=== PATIENT | male | born 1945 ===

== ENCOUNTER 2025-05-02 12:57 | Outpatient (AMB) | payer MEDICARE, SELFPAY ==
[2025-05-02 13:06] VITALS: BMI 26.3
--- NOTE | 2025-05-02 13:06 | A.OFFVIS_ITS ---
VS Expanded 05/02/25 13:06 05/03/25 12:57 Height 5 ft 8 in 5 ft 8 in Weight 173 lb 4.533 oz 173 lb BMI 26.3 26.3 Intake Visit Reasons: Pre-Diabetes Nutrition Presentation Details: Pt presents for MNT for DM, CKD stage 4 A1c at 6.5% on 03/2025 Pt reports he likes to eat sweets/pastries at different times and is working on reducing these sugars smokes: since 18 yo , less 1/2 ppd etoh: no physical activity: sedentary - d/t hip pain Pt reports BG at 109 this AM, daughter helps with meal preparation food frequency fruits: 0-3/wk Beverages: soda root beer or orange B: donut, coffee or sugary cereal with milk , coffee L: cookies dinner: rice/chicken, salad or potato/chicken/carrots snack cookies/ice cream dr robertson PCP and [facility]o BPU-Iwxzgwh-Vv.Jeor Equation Height: 5 ft 8 in Weight: 173 lb Resting Metabolic Rate: 1489.59 Calculated Activity Level: Sedentary Calories Needed to Maintain Weight: 1787.51 Diagnosis Nutrition problem #1: food nutri know defi As related to (etiology) #1: diagnosis As evidenced by (sign/symptom) #1: knowledge deficit of diet Assessment & Plan Assessment & Plan (1) Prediabetes: Comment: A1c at 6.5% on 03/2025, CKD stage 4 Code(s): R73.03 - Prediabetes Category: Medical Plan: Wt: 79 Kg ( 05/15 ) Est kcal needs as per MSJ: 1800 (40% carb, 30% protein/fat) Est fluid needs as per 25-30 ml/d: 2400 Est prot per day as per 1 g/kg bw: 80 Recommend fiber intake : 8-10 g per day and gradually increase to 25-28 g per day for women and 35-38 g for men or as tolerated Recommend sodium intake per day : less than 2000 mg Educated patient on: ( R = reviewed V = verbalizes understanding N/R = needs review N/A = not applicable * Food sources of carbohydrate, adequate serving sizes and its role in various health conditions: R * Differences between complex carbohydrates a simple carbohydrates, role of fib er in diet: R * Lean protein sources of foods: R * Differences between types of fats and role in diet (mono on saturated fat fatty acids, saturated fatty acids, trans fats): R V N/R * Food sources of sodium in salt and healthy modifications for heart health in kidney health: R * Vitamins and minerals: R V N/R * Healthy plate method concept: R * Physical activity: Benefits a precaution: R V N/R * Hypoglycemia protocol (rule of 15): R V N/R * Dietary prevention of Hyperglycemia: R Patient Instructions: Choose low sugar beverages - see list of options (milk, juice diluted with water, seltzer water Have a fruit with peanut butter as your breakfast replacing donuts /cookies see low sugar /low sodium options for cereals - you can also mix current cereal with lower salt/sugar options Coding Level of Care Code Nutr Indiv Intake (81652) Diagnoses Prediabetes R73.03 Time Spent (min) 30
--- OUTSIDE RECORDS SUMMARY | 2025-05-02 13:43 | XMS_ITS ---
Author Name [facility] Organization Unknown Care Team Organization Name Specialty Phone Email Start Date End Da [facility] 07/29/2022 05/09/2024
--- OUTSIDE RECORDS SUMMARY | 2025-05-02 13:43 | XMS_ITS | Encounter Summary ---
Author Organization [facility] Address [address] [place] [address] Phone Care Team Providers Care Wedding Florist Name Role Phone Unavailable Primary Care Provider Unavailabl e Encounter Details Date Type Department Care Team (Late st Contact Info) Description 12/17/2022 Telephone [facility] [address] [place] [address] Ghada Ellis Social History Tobacco Use Types Packs/Day Years Used Date Smoking Tobacco: Never Assessed Sex and Gender Information Value Date Recorded Sex Assigned at Not on file Legal Sex Male 5:01 PM EST Gender Identity Not on file Sexual Orientation Not on file documented as of this encounter Miscellaneous Notes * Telephone Encounter - Ghada Ellis - 12/17/2022 9:53 AM EDT Clifton from [facility] called regarding a scheduled CT scan tomorrow 12/18/22. Radiology is looking for an order consenting for PT to have contrast dye. Clifton: [phone] Clifton called again in regards to the IV with contrast, she is looking for an order for this to be done. documented in this encounter Plan of Treatment Not on file documented as of this encounter Visit Diagnoses Not on filedocumented in this encounter
--- OUTSIDE RECORDS SUMMARY | 2025-05-02 13:43 | XMS_ITS | Clinical Summary ---
Author Organization [address] Address [address] [place] [phone] Phone Care Team Providers Care Cuff Presser Name Role Phone Jagruti Cardenas MD Primary Care Provider [phone] Allergies No known active allergies Medications fluticasone propionate (FLONASE) 50 mcg/actuation nasal spray Administer 2 sprays into affected nostril(s) 1 (one) time each day. 12/28/19 24 Active calcitrioL (ROCALTROL) 0.25 mcg capsule Take 1 capsule (0.25 mcg total) by mouth 1 (one) time each day. 07/01/20 22 Active cholecalcifero l (VITAMIN D-3) 50 mcg (2,000 unit) capsule Take 1 capsule (2,000 Units total) by mouth 1 (one) time each day. 03/11/20 18 Active inhaler, assist devices (BREATHERITE MDI SPACER MISC) SPACER/AERO-H OLDING CHAMBERS (BREATHERITE CECILIA SPACER ADULT) MISC 1 Device by Does not apply route as needed. use w flovent 11/26/19 11 Active aspirin 81 mg EC tablet Take 1 tablet (81 mg total) by mouth 1 (one) time each day. Active albuterol HFA (PROAIR HFA ; PROVENTIL HFA ; VENTOLIN HFA) 90 mcg/actuation inhaler INHALE 2 PUFFS INTO THE LUNGS EVERY 4 HOURS NEEDED FOR COUGH OR WHEEZING. 8.5 each 10/05/19 25 Active nebivoloL (Bystolic) 10 mg tablet Take 1 tablet (10 mg total) by mouth 1 (one) time each day. 90 each 3 11/16/19 25 026 Active cloNIDine (CATAPRES-TTS- 2) 0.2 mg/[address] 1 patch on the skin 1 (one) time per week. 30 patch 12/14/19 25 Active atorvastatin (LIPITOR) 20 mg tablet TAKE 1 TABLET BY MOUTH EVERY DAY 90 tablet 1 12/29/19 25 Active famotidine (PEPCID) 20 mg tablet TAKE 1 TABLET BY MOUTH TWICE A DAY 180 tablet 1 01/28/20 25 Active gabapentin (NEURONTIN) 100 mg capsule Take 2 capsules (200 mg total) by mouth 2 (two) times a day. 360 capsule 1 04/19/20 25 Active amLODIPine (NORVASC) 5 mg tablet Take 1 tablet (5 mg total) by mouth 1 (one) time each day. 90 each 1 04/17/20 25 026 Active gabapentin (NEURONTIN) 100 mg capsule Take 2 capsules (200 mg total) by mouth 2 (two) times a day. 180 capsule 1 04/17/20 25 Active methocarbamoL (ROBAXIN) 750 mg tabletIndicati ons:Muscle spasm TAKE 1 TABLET BY MOUTH AT BEDTIME NEEDED (MUSCLE SPASM, WILL CAUSE SEDATION). 30 tablet 05/02/20 25 Active amLODIPine (NORVASC) 5 mg tablet Take 1 tablet (5 mg total) by mouth 1 (one) time each day. 10/14/19 24 025 Discontinued(Re order) gabapentin (NEURONTIN) 100 mg capsule TAKE 2 CAPSULES BY MOUTH 2 TIMES A DAY. 180 capsule 01/24/20 25 025 Discontinued(Re order) methocarbamoL (ROBAXIN) 750 mg tabletIndicati ons:Muscle spasm TAKE 1 TABLET BY MOUTH AT BEDTIME NEEDED (MUSCLE SPASM, WILL CAUSE SEDATION). 30 tablet 03/01/20 25 025 Discontinued methocarbamoL (ROBAXIN) 750 mg tabletIndicati ons:Muscle spasm TAKE 1 TABLET BY MOUTH AT BEDTIME NEEDED (MUSCLE SPASM, WILL CAUSE SEDATION). 30 tablet 04/03/20 25 025 Discontinued Active Problems Problem Noted Date Diagnosed Date CKD (chronic kidney disease) stage 4, GFR 15-29 ml/min ([facility] V24, [facility] V28) 11/16/2024 Gastroesophageal reflux dise ase with esophagitis without hemorrhage 08/28/2023 Assessment & Plan (08/15/2024 4:21 PM EST): He will continue famotidine for his GERD. Leg hematoma, left, sequela 03/23/2023 Overview (07/04/2024): after right fem to popliteal bypass, by Dr. Martinez PVD (peripheral vascular dis ease) with claudication ([facility] V24) 01/24/2022 Overview (07/04/2024): Dr. Moore- failed grafting, anticoagulation dc'd Pure hypercholesterolemia 09/29/2012 Assessment & Plan (08/15/2024 4:21 PM EST): His LDL is less than 60. Orders: Complete blood count; Future Thyroid stimulating hormone; Future Hemoglobin A1c; Future 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 Overview (07/04/2024): Per pul note 2010, in the 70' Allergic rhinitis 11/25/2010 Asthmatic bronchitis , chronic ([facility] V24, [facility] V28) 11/25/2010 Disorder of kidney and ureter 04/07/2007 Overview (07/04/2024): CREATININE USUALLY AROUND 2.0, follows with Dr. Benji MAY update Chronic hepatitis ([facility] V24, [facility] V28) 11/2004 Overview (07/04/2024): hepatitis C by history. But serology test (-) 2010 Depression 06/23/2005 Essential hypertension, benign 04/25/2005 Assessment & Plan (08/15/2024 4:21 PM EST): He will continue on amlodipine for management of hypertension. Will follow renal function. Patient has upcoming follow-up with nephrology. Hyperpotassemia 12/09/2004 Resolved Problems Problem Noted Date Diagnosed Date Resolved Date Controlled type 2 diabetes leland ho with chronic kidney disease, without long-term current use of insulin ([facility] V24, [facility] V28) 08/25/2017 08/15/2024 CKD (chronic kidney disease) stage 3, GFR 30-59 ml/min ([facility] V24, [facility] V28) 09/13/2015 11/16/2024 Overview (07/04/2024): Follows with Dr. Leblanc Assessment & Plan (08/15/2024 4:21 PM EST): We discussed the CKD stage III. Discussed the importance of avoidance of NSAIDs, contrast if possible, and making sure he is staying well-hydrated. We also discussed the importance of blood pressure and blood sugar control. Orders: Complete blood count; Future Thyroid stimulating hormone; Future Hemoglobin A1c; Future Encounters Date Type Department Care Team Description 04/17/2025 9:45 AM EDT Office Visit Adult Medicine [address] [phone] Jagruti Cardenas MD Pre-diabetes (Primary Dx); CKD (chronic kidney disease) stage 4, GFR 15-29 ml/min ([facility] V24, [facility] V28); Essential hypertension, benign; Postprocedural male urethral stricture; History of prostate cancer 03/20/2025 1:15 PM EDT Office Visit Orthopedic Surgery - [address] [phone] Neville Jacome DPM PVD (peripheral vascular disease) ([facility] V24) (Primary Dx); Metatarsalgia of left foot; Hammertoes of both feet; Dermatophytosis, nail from Last 3 Months Immunizations Name Administration Dates Next Due Influenza Quadravalent, MDCK , 0.5ml, preservative free (Flucelvax) 6mo and older 10/01/2018 Influenza Quadravalent, MDCK , 0.5ml, with preservative (Flucelvax) 6mo and older 08/21/2017 Influenza trivalent, 0.5mL ( Fluad) 65yo and older 06/26/2023,06/03/2022,07/02/2021,06/21 Influenza trivalent, 0.5mL, preservative free (Fluarix; FluLaval; Fluzone) ages 6mo and older (Afluria) 3 years and older 05/30/2016,06/12/2015,07/05/2014,07/11,06/06/2012,07/08/2011,07/28/2005 Influenza, Unspecified 07/05/2019 Pfizer SARS-CoV-2 COVID-19, mRNA, LNP-S, preservative free 07/22/2021 Pneumococcal conjugate 13 va lent (Prevnar 13, PCV13) 2mo and older 01/07/2017 Pneumococcal conjugate 20 va lent (Prevnar 20, PCV 20) 2mo and older 06/26/2023 Pneumococcal polysaccharide 23 valent (Pneumovax 23) 2yo and older 10/01/2018,01/10/2011 Td Tetanus diptheria (Tdvax) 7yo and older 08/27/2023 Tdap Tetanus diptheria acell ular pertussis (Boostrix; Adacel) 7yo and older 08/03/2012 Zoster Live 03/30/2012 Surgical History Surgery Date Site/Laterality Comments PROSTATECTOMY 2001 PROCEDURE: PROSTATECTOMY; COMMENT: radical prostatectomy for Jesus's 6, Stage PT 2A NOMO KNEE ARTHROSCOPY W/ DEBRIDEMENT 12/03/04 PROCEDURE: NV ARTHRS KNEE DEBRIDEMENT/SHAVING ARTCLR CRTLG; COMMENT: L knee OTHER SURGICAL HISTORY PROCEDURE: NV CYSTOURETHROSCOPY INSERTION PERM URETHRAL STENT OTHER SURGICAL HISTORY PROCEDURE: HISTORY OTHER; COMMENT: left knee pinning Medical History Medical History Date Comments Essential hypertension, benign 04/25/05 D X:Essential hypertension, benign Hyperpotassemia 12/09/04 DX:Hyperpotassem ia Essential hypertension, malignant 12/06/04 DX:Essential hypertension, malignant Primary localized osteoarthr osis, lower leg 11/20/04 DX:Primary localized osteoar throsis, lower leg Lipoma of unspecified site 11/17/02 DX:Li kurtis of unspecified site Neoplasm of uncertain behavi or of other specified sites 01/11/03 DX:Neoplasm of uncertain beh avior of other specified sites Hypertrophy (benign) of prostate 06/04/01 DX:Hypertrophy (benign) of prostate Chronic hepatitis, unspecifi ed ([facility] V24, [facility] V28) DX:Chronic hepatitis, unspe cified (HCC); COMMENT: hepatitis C Personal history of alcoholi sm ([facility] V24, [facility] V28) DX:Personal history of alco holism (HCC) Personal history of malignan t neoplasm of prostate DX:Personal history of malig nant neoplasm of prostate Cellulitis and abscess of or al soft tissues DX:Cellulitis and abscess of oral soft tissues; COMMENT: septic arthritis L knee Peripheral vascular disease, unspecified ([facility] V24) 04/07/2007 DX:Peripheral vascular disea se, unspecified ([facility]) Unspecified disorder of kidn ey and ureter 04/07/2007 DX:Unspecified disorder of k idney and ureter; COMMENT: CREATININE USUALLY AROUND 2.0 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 DX:Positive PPD Pure hypercholesterolemia 09/29/2012 DX:Pur e hypercholesterolemia Hyperglycemia 06/05/2014 DX:Hyperglycemia CKD (chronic kidney disease) stage 3, GFR 30-59 ml/min ([facility] V24, [facility] V28) 09/13/2015 DX:CKD (chronic kidney disea se) stage 3, GFR 30-59 ml/min ([facility]); COMMENT: Follows with Dr. Leblanc Controlled type 2 diabetes m vic with chronic kidney disease, without long-term current use of insulin ([facility] V24, [facility] V28) 08/25/2017 Family History Medical History Relation Name Comments Other: shot Brother No Known Problems Father No Known Problems Mother No Known Problems Sister 1 Other: weak heart Sister 2 Relation Name Status Comments Brother Father Mother Sister 1 Sister 2 Sister 3 Alive Social History Tobacco Use Types Packs/Day Years Used Date Smoking Tobacco: Every Day Cigarettes 0.5 61.6 Started: 09/21/1961 Smokeless Tobacco: Never Tobacco Cessation:Ready to Q uit: Not Asked; Counseling Given: Not Answered Alcohol Use Standard Drinks/Week Comments No 0 (1 standard drink = 0.6 oz pur e alcohol) Housing Instability Answer Date Recorde d Are you worried that in the next 2 months you may not have stable housing? No 08/12/2024 Food Access & Nutrition Answer Date Rec orded Do you have access to a vari ety of food including fruits and vegetables? Yes 08/12/2024 Access to Healthcare Answer Date Record ed Within the last 3 months, ho w many times did you visit the emergency department for your medical care? 0 08/12/2024 Health Literacy Answer Date Recorded How often do you need to hav e someone help you when you read instructions, pamphlets, or other written material from your doctor or pharmacy? Never 08/12/2024 Caregiver: How often do you need to have someone help you when you read instructions, pamphlets, or other written material from your doctor or pharmacy? Not on file 08/12/2024 Financial Risk Answer Date Recorded How hard is it for you to pa y for the very basics like food, housing, medical care, and air conditioning / heating? Not very hard 08/12/2024 Transportation Answer Date Recorded Has the lack of transportati on kept you from meetings, work, or from getting things needed for daily living? No Has the lack of transportati on kept you from medical appointments or from getting medications? No 08/12/2024 Social Isolation Answer Date Recorded How often do you feel lonely or isolated from th ose around you? Rarely 08/12/2024 Food Risk Answer Date Recorded Within the past 12 months we worried whether our food would run out before we got money to buy more. Never true 08/12/2024 Within the past 12 months th e food we bought just didn't last and we didn't have money to get more. Never true 08/12/2024 Dependent Care Answer Date Recorded Do you need help finding or paying for care for your loved ones. For example, exceptional children's teacher or elderly care for an older adult? No 08/12/2024 Education Answer Date Recorded Do you think completing more education or training, like finishing a GED, going to college, or learning a trade, would be helpful for you? N/A 08/12/2024 Employment and Income Answer Date Recor ded During the last four weeks, have you been actively looking for work? No 08/12/2024 Living Situation Answer Date Recorded What is your living situation? 1 10/12/2023 Sex and Gender Information Value Date Recorded Sex Assigned at Male 07/26/2024 4:37 PM EST Legal Sex Male 9:29 AM EST Gender Identity Male 07/26/2024 4:37 PM EST Sexual Orientation Straight 07/26/2024 4: 37 PM EST Obstetrics History Last Filed Vital Signs Vital Sign Reading Time Taken Comments Blood Pressure 120/52 04/17/2025 9:54 AM EDT Pulse 64 04/17/2025 9:54 AM EDT Temperature 36.6 C (97.8 F) 04/17/2025 9:54 AM EDT Respiratory Rate 14 04/17/2025 9:54 AM EDT Oxygen Saturation 98% 04/17/2025 9:54 AM EDT Inhaled Oxygen Concentration - - Weight 79 kg (174 lb 3.2 oz) 04/17/2025 9:54 AM EDT Height 172.7 cm (5' 8 ) 04/17/2025 9:54 AM EDT Body Mass Index 26.49 04/17/2025 9:54 AM EDT Plan of Treatment Upcoming Encounters Date Type Department Care Team (Late st Contact Info) Description 05/25/2025 11:00 AM EDT Office Visit Orthopedic Surgery - [place] [phone] [phone] Neville Jacome, LEVI [address] [address] 06/14/2025 1:00 PM EDT Office Visit Nephrology [address] [phone] Dave [facility]anc [facility] [address] [facility] [address] [place] [phone] 08/10/2025 1:15 PM EST Office Visit Adult Medicine [place] [address] [phone] Jagruti Cardenas MD [address] [place] [phone] Health Maintenance Due Date Last Done Comments Diabetes: Annual Retina Eye Exam 1955 Hepatitis A Vaccines (1 of 2 - Risk 2-dose series) 1966 Hepatitis B Vaccines (1 of 3 - Risk 3-dose series) 2007 Zoster Vaccines (1 of 2) 05/25/2012 03/30/2012 RSV Immunization Adult Patients (1 - 1-dose 75+ series) 2022 COVID-19 Vaccine (5 - season) 2024 06/26/2023, 07/22/2021, 01/13/2021, Additional history exists Medicare Annual Wellness Visit 08/27/2024 08/27/2023 Diabetes: Annual Foot Exam 08/28/2024 08/28/2023 Influenza Vaccine (#1) 2025 , 06/26/2023, 06/03/2022, Additional history exists Lung Cancer Screening (Low Dose CT) 07/18/2025 07/18/2024, 07/15/2023, 07/14/2022, Additional history exists Diabetes: Annual Urine Albumin-Creatinine Ratio (uACR) 08/09/2025 08/09/2024, 11/06/2022 Social Influencers of Health Screening 08/12/2025 08/12/2024 Falls Risk Assessment 08/15/2025 08/15/2024, 024 Diabetes: Blood Sugar Control Test (HGBA1C) 10/11/2025 04/10/2025, 04/04/2025, 12/08/2024, Additional history exists Diabetes: Annual GFR (Glomerular Filtration Rate) 04/10/2026 04/10/2025, 04/04/2025, 04/04/2025, Additional history exists Hypertension/CHF/CAD Annual BMP Blood Test 04/10/2026 04/10/2025, 04/04/2025, 04/04/2025, Additional history exists Cholesterol Screening (Lipid Panel) 08/08/2029 08/08/2024, 08/24/2023 DTaP,Tdap,and Td Vaccines (3 - Td or Tdap) 08/27/2033 08/27/2023, 08/03/2012 Hepatitis C Screening Completed 09/16/2011 Pneumococcal Vaccine: 50+ Years Completed 06/26/2023, 10/01/2018, 01/07/2017, Additional history exists Depression Screening Completed 12/06/2024, 08/27/20 23 HIB Vaccines Aged Out No longer eligi ble based on patient's age to complete this topic HPV Vaccines Aged Out No longer eligi ble based on patient's age to complete this topic IPV Vaccines Aged Out No longer eligi ble based on patient's age to complete this topic MMR Vaccines Aged Out No longer eligi ble based on patient's age to complete this topic Meningococcal ACWY Vaccine Aged Out N o longer eligible based on patient's age to complete this topic Meningococcal B Vaccine Aged Out No l onger eligible based on patient's age to complete this topic RSV Immunization Patients Under 20 months Aged Out No longer eligible based on patient's age to complete this topic Varicella Vaccines Aged Out No longer eligible based on patient's age to complete this topic Procedures Procedure Name Priority Date/Time Associated Diagnosis Comments COMPLETE BLOOD COUNT Routine 04/10/2025 11:21 AM EDT CKD (chronic kidney disease) stage 4, GFR 15-29 ml/min ([facility] V24, [facility] V28) Chronic hepatitis ([facility] V24, [facility] V28) Gastroesophageal reflux disease with esophagitis without hemorrhage Essential hypertension, benign Prediabetes COMPREHENSIVE METABOLIC PANEL Routine 04/10/2025 11:21 AM EDT CKD (chronic kidney disease) stage 4, GFR 15-29 ml/min ([facility] V24, [facility] V28) Chronic hepatitis ([facility] V24, [facility] V28) Gastroesophageal reflux disease with esophagitis without hemorrhage Essential hypertension, benign Prediabetes HEMOGLOBIN A1C Routine 04/10/2025 11:21 AM EDT CKD (chronic kidney disease) stage 4, GFR 15-29 ml/min ([facility] V24, [facility] V28) Chronic hepatitis ([facility] V24, [facility] V28) Gastroesophageal reflux disease with esophagitis without hemorrhage Essential hypertension, benign Prediabetes MICROALBUMIN CREATININE URINE RATIO Routine 08/09/2024 10:53 AM EST PVD (peripheral vascular disease) with claudication ([facility] V24) Allergic rhinitis Essential hypertension, benign Asthmatic bronchitis , chronic ([facility] V24, [facility] V28) Chronic hepatitis ([facility] V24, [facility] V28) Gastroesophageal reflux disease with esophagitis without hemorrhage CKD (chronic kidney disease) stage 3, GFR 30-59 ml/min ([facility] V24, [facility] V28) Controlled type 2 diabetes mellitus with chronic kidney disease, without long-term current use of insulin ([facility] V24, [facility] V28) Disorder of kidney and ureter Leg hematoma, left, sequela Pure hypercholesterolemia Hyperpotassemia Positive PPD Depression LIPID PANEL WITH REFLEX TO DIRECT LDL Routine 08/08/2024 1:19 PM EST PVD (peripheral vascular disease) with claudication ([facility] V24) Allergic rhinitis Essential hypertension, benign Asthmatic bronchitis , chronic ([facility] V24, [facility] V28) Chronic hepatitis ([facility] V24, [facility] V28) Gastroesophageal reflux disease with esophagitis without hemorrhage CKD (chronic kidney disease) stage 3, GFR 30-59 ml/min ([facility] V24, [facility] V28) Controlled type 2 diabetes mellitus with chronic kidney disease, without long-term current use of insulin ([facility] V24, [facility] V28) Disorder of kidney and ureter Leg hematoma, left, sequela Pure hypercholesterolemia Hyperpotassemia Positive PPD Depression CT LUNG SCREENING LOW DOSE Routine 07/18/2024 9:12 AM EDT Personal history of nicotine dependence FALLS RISK ASSESSMENT Routine 05/12/2024 DIABETES FOOT EXAM Routine 08/28/2023 DEPRESSION SCREENING Routine 08/27/2023 HEPATITIS C SCREENING Routine 09/16/2011 from Last 3 Months or Most Recently Relevant to Health Maintenance Results * (ABNORMAL) Complete blood count (04/10/2025 11:21 AM EDT) [facility] WBC 6.3 4.8 - 10.8 K/[facility] LAB HEMETOLOGY METHOD 04/10/2025 4:07 PM EDT [facility] RBC 4.70 4.50 - 5.50 M/mcL LAB HEMETOLOGY METHOD 04/10/2025 4:07 PM [facility] Hemoglobin 13.6 13.5 - 17.5 g/dL LAB HEMETOLOGY METHOD 04/10/2025 4:07 PM [facility] Hematocrit 42.5 42.0 - 54.0 % LAB HEMETOLOGY METHOD 04/10/2025 4:07 PM [facility] MCV 91.4 79.0 - 98.0 FL LAB HEMETOLOGY METHOD 04/10/2025 4:07 PM [facility] MCH 29.2 27.0 - 32.0 pcg LAB HEMETOLOGY METHOD 04/10/2025 4:07 PM [facility] MCHC 32.0 32.0 - 37.0 g/dL LAB HEMETOLOGY METHOD 04/10/2025 4:07 PM [facility] RDW 14.0 11.0 - 15.0 % LAB HEMETOLOGY METHOD 04/10/2025 4:07 PM [facility] Platelets 263 130 - 400 K/mcL LAB HEMETOLOGY METHOD 04/10/2025 4:07 PM [facility] MPV 12.0(H) 7.0 - 11.0 FL LAB HEMETOLOGY METHOD 04/10/2025 4:07 PM [facility] NRBC 0.0 <1.0 % LAB HEMETOLOGY METHOD 04/10/2025 4:07 PM [facility] NRBC Absolute 0.00 <0.10 K/mcL LAB HEMETOLOGY METHOD 04/10/2025 4:07 PM [facility] Blood Venous blood specimen / Unknown Venipuncture / Unknown 04/10/2025 11:21 AM EDT 04/10/2025 11:21 AM EDT Mike GARCES LAB BLOOD ORDERABLES Fin al Result Performing Organization Address City/[facility]/ZIP Co de Phone Number [facility] [address] [place] [address], [place] [phone] * (ABNORMAL) Hemoglobin A1c (04/10/2025 11:21 AM EDT) Hemoglobin A1C 6.6(H) <6.5 % LAB CHEMISTRY METHOD 04/10/2025 9:06 PM EDT [facility] Mean Bld Glu Estim. 143 mg/dL LAB CHEMISTRY METHOD 04/10/2025 9:06 PM EDT [facility] Blood Venous blood specimen / Unknown Venipuncture / Unknown 04/10/2025 11:21 AM EDT 04/10/2025 11:21 AM EDT Mike GARCES LAB BLOOD ORDERABLES Fin al Result Performing Organization Address [facility]/ZIP Co de Phone Number [facility] [address] [place] [address], [place] [phone] * (ABNORMAL) Comprehensive metabolic panel (04/10/2025 11:21 AM EDT) Pathologist [facility] Sodium 140 133 - 145 mmol/L LAB CHEMISTRY METHOD 04/10/2025 7:18 PM EDT [facility] Potassium 4.9 3.5 - 5.5 mmol/L LAB CHEMISTRY METHOD 04/10/2025 7:18 PM EDT [facility] Chloride 108 96 - 110 mmol/L LAB CHEMISTRY METHOD 04/10/2025 7:18 PM EDT [facility] CO2 28 21 - 32 mmol/L LAB CHEMISTRY METHOD 04/10/2025 7:18 PM T [facility] Anion Gap 4 3 - 11 LAB CHEMISTRY METHOD 04/10/2025 7:18 PM EDT [facility] Glucose 98 70 - 100 mg/dL LAB CHEMISTRY METHOD 04/10/2025 7:18 PM [facility] BUN 25 5 - 25 mg/dL LAB CHEMISTRY METHOD 04/10/2025 7:18 PM [facility] Creatinine 2.53(H) 0.70 - 1.30 mg/dL LAB CHEMISTRY METHOD 04/10/2025 7:18 PM [facility] eGFR 25(L) >=60 mL/min/1. 73m2 LAB CHEMISTRY METHOD 04/10/2025 7:18 PM [facility] Comment:Calculation based on the Chronic Kidney Disease Epidemiology Collaboration (CKD-EPI) equation refit without adjustment for race. BUN/Creatinine Ratio 9.9 LAB CHEMISTRY METHOD 04/10/2025 7:18 PM [facility] Calcium 9.5 8.5 - 10.5 mg/dL LAB CHEMISTRY METHOD 04/10/2025 7:18 PM [facility] AST (SGOT) 10 10 - 42 unit/L LAB CHEMISTRY METHOD 04/10/2025 7:18 PM [facility] ALT (SGPT) 17 10 - 60 unit/L LAB CHEMISTRY METHOD 04/10/2025 7:18 PM [facility] Alkaline Phosphatase 155(H) 42 - 121 unit/L LAB CHEMISTRY METHOD 04/10/2025 7:18 PM [facility] Total Protein 7.1 6.0 - 8.0 g/dL LAB CHEMISTRY METHOD 04/10/2025 7:18 PM [facility] Albumin 3.6 3.2 - 5.0 g/dL LAB CHEMISTRY METHOD 04/10/2025 7:18 PM [facility] Total Bilirubin 0.4 0.0 - 1.4 mg/dL LAB CHEMISTRY METHOD 04/10/2025 7:18 PM [facility] Blood Venous blood specimen / Unknown Venipuncture / Unknown 04/10/2025 11:21 AM EDT 04/10/2025 11:21 AM EDT Mike GARCES LAB BLOOD ORDERABLES Fin al Result Performing Organization Address City/[facility]/ZIP Co de Phone Number [facility] [address] [place] [address], [place] [phone] * (ABNORMAL) Microalbumin creatinine urine ratio (08/09/2024 10:53 AM EST) Creatinine, Urine 84.0 mg/dL LAB CHEMISTRY METHOD 08/09/2024 2:43 PM EST [facility] Microalb, Ur 737.0(H) 0.0 - 29.0 mg/L LAB CHEMISTRY METHOD 08/09/2024 2:43 PM EST [facility] Microalb/Crea t Ratio 877(H) <30 mg/g creat LAB CHEMISTRY METHOD 08/09/2024 2:43 PM EST [facility] Urine Urine specimen obtained by clean catch procedure / Unknown Non-blood Collection / Unknown 08/09/2024 10:53 AM EST 08/09/2024 10:53 AM EST Jagruti Cardenas MD LAB URINE ORDERABLES Final Resul t Performing Organization Address City/[facility]/ZIP Co de Phone Number [facility] [address] [place] [address], [place] [phone] * Lipid panel with reflex to direct LDL (08/08/2024 1:19 PM EST) Cholesterol 112 0 - 200 mg/dL LAB CHEMISTRY METHOD 08/08/2024 5:34 PM EST [facility] Triglycerides 84 0 - 150 mg/dL LAB CHEMISTRY METHOD 08/08/2024 5:34 PM EST [facility] HDL 46 >=40 mg/dL LAB CHEMISTRY METHOD 08/08/2024 5:34 PM EST [facility] LDL Calculated 49 0 - 100 mg/dL LAB CHEMISTRY METHOD 08/08/2024 5:34 PM EST [facility] VLDL Cholesterol Baltazar 16.8 mg/dL LAB CHEMISTRY METHOD 08/08/2024 5:34 PM EST [facility] Non HDL Chol. (LDL+VLDL) 66 <145 mg/dL LAB CHEMISTRY METHOD 08/08/2024 5:34 PM EST [facility] Chol/HDL Ratio 2.4 0.0 - 4.4 LAB CHEMISTRY METHOD 08/08/2024 5:34 PM EST [facility] Blood Venous blood specimen / Unknown Venipuncture / Unknown 08/08/2024 1:19 PM EST 08/08/2024 1:19 PM EST us Jagruti Cardenas MD LAB BLOOD ORDERABLES Final Resul t [facility] [address] [place] [address], * CT LUNG SCREENING LOW DOSE (07/18/2024 9:12 AM EDT) Anatomical Region Laterality Modality Computed Tomogra phy 07/16/2024 8:43 AM EDT Narrative 07/18/2024 9:[address] [facility] Diagnostic Imaging Department [address] [place] [address] Patient: JOSHUA RUBIO JR./Age/Sex: 1945 - 78 - M Unit#: [id number] Location/Status: SPDICATLS/REG CLI Mnemonic[facility] Ordering Physician: COURTNEY DAVIES MD CT Lung Screening Low Dose - 07/16/2448 Report Status:Signed PROCEDURE: Chest CT INDICATION: Current smoker, 45 pack-year smoking history, tobacco abuse, lung cancer screening TECHNIQUE: Chest CT without contrast. Multi planar reformats were created and interpreted. The examination was performed utilizing dose reduction techniques. Total DLP 111 COMPARISON: 07/15/2023 FINDINGS: LUNGS/PLEURA: Round filling defect within the left mainstem bronchus is decreased compared to prior and likely secretions. Emphysema. 3 mm right upper lobe nodule is stable compared to prior. Scattered smaller nodules throughout the lungs are stable compared to prior No new or suspicious pulmonary nodules. No pleural effusion or pneumothorax. MEDIASTINUM: Thyroid gland is unremarkable. No mediastinal or hilar lymphadenopathy. Cardiac chambers are normal in size. No pericardial effusion. Esophagus is normal. CHEST WALL: No axillary lymphadenopathy or superficial hematoma. UPPER ABDOMEN:Hepatic steatosis. BONES: No acute fracture. Scattered degenerative changes seen throughout the bones. IMPRESSION: No new or suspicious pulmonary nodules. Lung RADS 2-benign. Recommend continued screening with low-dose chest CT in 12 months. Dictating Physician: LAURO VIRGEN MD Electronically Signed by: LAURO VIRGEN MD Dic Date/Time: 07/18/24901 Sign date/Time: 07/18/24911 Procedure Note Lauro Virgen MD - 07/23/2024 [facility] Diagnostic Imaging Department [address] [place] [address] Patient: JOSHUA RUBIO JR., D.O.B./Age/Sex: 1945 - 78 - M Unit#: [id number] Location/Status: SPDICATLS/REG CLI Mnemonic/Ordering Site: [facility] Ordering Physician: COURTNEY DAVIES MD CT Lung Screening Low Dose - 07/16/24 - 0848 Report Status:Signed PROCEDURE: Chest CT INDICATION: Current smoker, 45 pack-year smoking history, tobacco abuse,lung cancer screening TECHNIQUE: Chest CT without contrast. Multi planar reformats were createdand interpreted. The examination was performed utilizing dose reductiontechniques. Total DLP 111 COMPARISON: 07/15/2023 FINDINGS: LUNGS/PLEURA: Round filling defect within the left mainstem bronchus is decreased compared to prior and likely secretions. Emphysema. 3 mm rightupper lobe nodule is stable compared to prior. Scattered smaller nodulesthroughout the lungs are stable compared to prior No new or suspicious pulmonarynodules. No pleural effusion or pneumothorax. MEDIASTINUM: Thyroid gland is unremarkable. No mediastinal or hilar lymphadenopathy. Cardiac chambers are normal in size. No pericardialeffusion. Esophagus is normal. CHEST WALL: No axillary lymphadenopathy or superficial hematoma. UPPER ABDOMEN:Hepatic steatosis. BONES: No acute fracture. Scattered degenerative changes seen throughoutthe bones. IMPRESSION: No new or suspicious pulmonary nodules. Lung RADS 2-benign. Recommend continued screening with low-dose chest CT in 12 months. Dictating Physician: LAURO VIRGEN MD Electronically Signed by: LAURO VIRGEN MD Dic Date/Time: 07/18/24901 Sign date/Time: 07/18/24911 Courtney Davies MD [facility] [place]ED[place] Final Result * Falls Risk Assessment (05/12/2024) Pathologist [facility] Falls Risk Assessment Abstracted Rory Provider HEALTH MAINTENANCE Final Result * Diabetes Foot Exam (08/28/2023) Pathologist [facility] Diabetes: Annual Foot Exam Abstracted Historical Provider HEALTH MAINTENANCE Final Result * Depression Screening (08/27/2023) Pathologist [facility] Depression Screening Abstracted Historical Provider HEALTH MAINTENANCE Final Result * Hepatitis C Screening (09/16/2011) Pathologist [facility] Hepatitis C Screening Abstracted Historical Provider HEALTH MAINTENANCE Final Result from Last 3 Months or Most Recently Relevant to Health Maintenance Insurance MEDICARE [facility] Care Teams Cuff Presser Relationship Specialty Start Date End Date Jagruti Cardenas MD [address] [place] [id number] PCP - General 05/19/1994
[2025-05-03 12:57] VITALS: BMI 26.3
== END 2025-05-02 13:40 | disposition home or self-care (01) ==
PROVIDERS: Visit Provider Dietitian, Registered
DX: R73.03 Prediabetes (principal)

== ENCOUNTER → 2025-05-02 12:57 | Outpatient (BNVA) | payer MEDICARE, SELFPAY | PROVIDERS: Visit Provider Dietitian, Registered | DX: R73.03 Prediabetes (principal); N18.4 Chronic kidney disease, stage 4 (severe); Z71.3 Dietary counseling and surveillance | CPT/HCPCS: 97802 ==

== ENCOUNTER 2025-06-21 13:20 | Outpatient (AMB) | payer MEDICARE, SELFPAY ==
--- OUTSIDE RECORDS SUMMARY | 2025-06-14 00:54 | XMS_ITS | Encounter Summary ---
Author Organization [facility] Address [address] [place] [address] Care Team Providers Care Production Support Specialist Name Role Phone Jagruti Cardenas MD Primary Care Provider [phone] Reason for Referral * Home Health (Routine) - Closed Specialty Diagnoses / Procedures Referred By Eliud t Referred To Contact Home Health Services Diagnoses Lightheadedness Dizziness Jaspreet Ledesma MD [address] [place] [id number] Phone: tel: fax: [facility] [place] [address] [facility] [address] [place] [address] Phone: tel: fax: Referral ID Status Reason Start Date Expiration Date V isits Requested Visits Authorized [id number] Closed Consult and Treat 06/16/2025 06/16/2026 1 1 Reason for Visit * Reason Comments Dizziness Pt coming from home brought in by EMS for c/o a fall today trying to get out of bed d/t dizziness no headstrike or LOC this also happened yesterday too where pt was walking felt dizzy and fell. Pt endorses back pain d/t to fall. Pt left sided arm weakness for EMS. * Auth/Cert (Routine) Specialty Diagnoses / Procedures Referred By Contac t Referred To Contact Diagnoses Lightheadedness Urinary tract infection NSTEMI (non-ST elevated myocardial infarction) (CMS/HCC V24, CMS/[facility] V28) Urinary tract infection without hematuria, site unspecified Procedures . Rich Dia MD [address] [place] [address] Phone: tel: fax: [facility] [address] [place] [address] Phone: tel: Referral ID Status Reason Start Date Expiration Date Visits Re quested Visits Authorized [id number] 1 1 Encounter Details Date Type Department Care Team (Latest Contact Info) Description 06/14/2025 12:54 AM EDT - 06/16/2025 1:48 PM EDT Hospital Encounter [facility] [address] [place] [phone] Roberto Peguero MD [address] [place] [address] [phone] Rich Dia MD [address] [place] [id number] [phone] Jaspreet Ledesma MD [address] [place] [address] [phone] David Mcdowell MD [address] [place] [phone] Urinary tract infection without hematuria, site unspecified (Primary Dx); Lightheadedness; NSTEMI (non-ST elevated myocardial infarction) ([facility] V24, [facility] V28); Dizziness; Essential hypertension, benign; CKD (chronic kidney disease) stage 4, GFR 15-29 ml/min ([facility] V24, [facility] V28); Fever, unspecified fever cause Discharge Disposition: Home-Health Care Svc Social History Tobacco Use Types Packs/Day Years Used Date Smoking Tobacco: Every Day Cigarettes 0.5 61.7 Started: 09/21/1961 Smokeless Tobacco: Never Alcohol Use Standard Drinks/Week Comments No 0 [...] care for your loved ones. For example, children counselor or elderly care for an older adult? [...] Date Recorded What is your living situation? Unrecognized valu e 08/12/2024 Interpersonal Safety Answer Date Record ed Physical Abuse Unrecognized value 06/14/2025 Verbal Abuse Unrecognized value 06/14/2025 Sex and Gender Information Value Date Recorded Sex Assigned at Male 07/26/2024 4:37 PM EST Legal Sex Male 9:29 AM EST Gender Identity Male 07/26/2024 4:37 PM EST Sexual Orientation Straight 07/26/2024 4: 37 PM EST documented as of this encounter Last Filed Vital Signs Vital Sign Reading Time Taken Comments Blood Pressure 162/64 06/16/2025 11:36 AM EDT Pulse 83 06/16/2025 11:36 AM EDT Temperature 36.9 C (98.4 F) 06/16/2025 11:36 AM EDT Respiratory Rate 16 06/16/2025 11:3 6 AM EDT Oxygen Saturation 100% 06/16/2025 11: 36 AM EDT Inhaled Oxygen Concentration - - Weight 78.9 kg (173 lb 15.1 oz) 025 10:55 AM EDT Height 172.7 cm (5' 7.99 ) 06/14/2025 1 0:55 AM EDT Body Mass Index 26.45 06/14/2025 10:55 AM EDT documented in this encounter Functional Status * Calculated C-SSRS Risk Score (Lifetime/Recent) Answer Date of Assessment Author No Risk Indicated 06/14/2025 6:28 AM EDT Ibeth Dutton RN * [place] Suicide Severity Rating Scale (Screener/Recent Self-Report) Question Answer Date of Assessment Author 1. Wish to be (Past 1 Month) No 025 6:28 AM EDT Ibeth Dutton RN 2. Non-Specific Active Suici wolfgang Thoughts (Past 1 Month) No 06/14/2025 6:28 AM EDT Aaron Dutton RN 6. Suicidal Behavior (Lifetime) No 6:28 AM EDT Ibeth Dutton RN documented as of this encounter Discharge Summaries * Jaspreet Ledesma MD - 06/16/2025 9:28 AM EDT Images from the original note were not included. DISCHARGE SUMMARY Patient Information Alexandro Rubio Jr. : 1945 [79 y.o.] Admitting Provider Rich Dia MD Discharge Provider Jaspreet Ledesma MD, Jaspreet Ledesma MD Primary Care Physician Jagruti Cardenas MD Admission Date 06/14/2025 Discharge Date 06/16/2025 Discharge disposition- Home with home health Summary of Hospital Problems Primary Discharge Diagnosis: E. coli urosepsis Hospital Course Summary Admission HPI from H&P per admitting physician/CROW- This is a 79-year-old male with a past medical history significant for hypertension, hyperlipidemia, chronic kidney disease stage IV follows with Dr. Leblanc, peripheral vascular disease, chronic hepatitis and a complicated urological history. He has a history of prostate cancer status post prostatect amisha, urethral stricture and a history of AUS placed which became infected and was removed 2022. He presents to the emergency room with complaints of dizziness and weakness. He states that this has been ongoing for over a month but has gotten progressively worse. He tells me that he slid out of bed yesterday and was unable to get up despite his daughter trying to help him. The dizziness seems worse when he stands but not always. He has no vision changes no difficulty chewing swallowing or speaking. He expressly denied chest pain/pressure is no shortness of breath but he does sometimes have a cough with white phlegm. No abdominal pain no flank pain. No blood in the urine or stool. He reports a decrease appetite stating that the food just does not taste good. While in the emergency room he did develop a fever. Workup: Chest x-ray which showed no active pulmonary process EKG #1: Sinus rhythm with sinus arrhythmia rate of 86 bpm with PVCs. No acute ischemic changes EKG #2 sinus rhythm rate of 66 bpm no acute ischemic changes EKG #3 normal sinus rhythm 62 bpm no acute ischemic changes EKGs are my read official cardiology read is pending. Echocardiogram is pending Abdomen and pelvis CT pending Brain CT showed no acute intracranial findings including mass shift midline shift hydrocephalus or acute hemorrhage likely chronic small vessel ischemic changes. Brain MRI is pending CBC showed a white count of 8.3 hemoglobin 11.1 hematocrit 33.9 platelets 175 neutrophils of 6.5 Sed rate 42 Procalcitonin of 10.6 Chemistries random glucose 145 BUN 45 creatinine of 3.35 albumin 2.9 AST is 66 ALT 40 alkaline phosphatase of 117 total protein 6.3 lactate 1.3 UA positive for protein 300 moderate blood nitrate negative WBCs of 50 squamous cell epithelials 75bacteria negative Urine culture pending Blood culture pending Respiratory viral panel negative BNP of 659 High sensitive troponin 111, repeat 125 Vital signs Tmax was 38.9 pulse last recorded at 63 respiratory rate 14 blood pressure 121/55 oxygen saturation 98% on room air Orthostatic bp 133/56, 130/60, 121/55 He was given a liter of normal saline and 1 dose of ceftriaxone. Bharti Garcia NP Brief Hospital course 79-year-old male with history of CKD and extensive urological history was initially admitted with sepsis in setting of UTI, he is troponins flat trended and he was found to have MARCIN. While receiving fluids, he went into flash pulmonary edema which quickly resolved and he was brought down to room air. Blood cultures growing gram-negative bacilli, sensitivity pending. He remained on 2 g of ceftriaxone and discharged on renally adjusted cefpodoxime. He was also started on steroids for ongoing wheezing during his acute flash pulmonary edema episode, will complete a total of 5 days of prednisone. Over the next couple of days, his creatinine improved. CT was done without contrast with his MARCIN which was suggestive of possible bilateral pyelonephritis/cystitis but no obstruction Physical Exam at time of Discharge Temp (24hrs), Av.6 ??C (97.8 ??F), Min:36.2 ??C (97.2 ??F), Max:36.9 ??C (98.4 ??F) Body mass index is 26.45 kg/m??. No results found for: PTWT , PTHT Physical Exam General-patient appears comfortable, no acute distress HEENT-NCAT Eyes-anicteric Heart-Normal Rate and Rhythm Respiratory-CTAB Abdomen-Soft, nontender, nondistended Extremity-no significant lower extremity edema Neurology-awake alert oriented to time, place,and person Psych- Normal Mood and affect Skin-warm and dry Follow-Up Instructions and Recommendations -Continue steroids and antibiotics as prescribed. Discharge Medications Your medication list START taking these medications Instructions Last Dose Given Next Dose Due cefpodoxime 200 mg tablet Commonly known as: VANTIN Take 1 tablet (200 mg total) by mouth 1 (one) time each day for 8 days. predniSONE 20 mg tablet Commonly known as: DELTASONE Start taking on: June 17, 2025 Take 2 tablets (40 mg total) by mouth 1 (one) time each day for 3 doses. CONTINUE taking these medications Instructions Last Dose Given Next Dose Due albuterol HFA 90 mcg/actuation inhaler Commonly known as: PROAIR HFA ; PROVENTIL HFA ; VENTOLIN HFA INHALE 2 PUFFS INTO THE LUNGS EVERY 4 HOURS NEEDED FOR COUGH OR WHEEZING. amLODIPine 5 mg tablet Commonly known as: NORVASC Take 1.5 tablets (7.5 mg total) by mouth 1 (one) time each day. aspirin 81 mg EC tablet Take 1 tablet (81 mg total) by mouth 1 (one) time each day. atorvastatin 20 mg tablet Commonly known as: LIPITOR TAKE 1 TABLET BY MOUTH EVERY DAY BREATHERITE MDI SPACER MISC SPACER/AERO-HOLDING CHAMBERS (BREATHERITE CECILIA SPACER ADULT) MISC 1 Device by Does not apply route as needed. use w flovent calcitrioL 0.25 mcg capsule Commonly known as: ROCALTROL Take 1 capsule (0.25 mcg total) by mouth 1 (one) time each day. cloNIDine 0.2 mg/24 hr Commonly known as: [id number] Place 1 patch on the skin 1 (one) time per week. famotidine 20 mg tablet Commonly known as: PEPCID TAKE 1 TABLET BY MOUTH TWICE A DAY gabapentin 100 mg capsule Commonly known as: NEURONTIN Take 2 capsules (200 mg total) by mouth 2 (two) times a day. gabapentin 100 mg capsule Commonly known as: NEURONTIN Take 2 capsules (200 mg total) by mouth 2 (two) times a day. methocarbamoL 750 mg tablet Commonly known as: ROBAXIN TAKE 1 TABLET BY MOUTH AT BEDTIME NEEDED (MUSCLE SPASM, WILL CAUSE SEDATION). nebivoloL 10 mg tablet Commonly known as: Bystolic Take 1 tablet (10 mg total) by mouth 1 (one) time each day. ASK your doctor about these medications Instructions Last Dose Given Next Dose Due cholecalciferol 50 mcg (2,000 unit) capsule Commonly known as: VITAMIN D-3 Take 1 capsule (2,000 Units total) by mouth 1 (one) time each day. fluticasone propionate 50 mcg/actuation nasal spray Commonly known as: FLONASE Administer 2 sprays into affected nostril(s) 1 (one) time each day. Where to Get Your Medications These medications were sent to [id number] - [place], [place] - [address] AT [facility] [address] [facility] [address] amLODIPine 5 mg tablet cefpodoxime 200 mg tablet predniSONE 20 mg tablet Lab Results Component Value Date GLUCOSE 170 (H) 06/16/2025 CALCIUM 8.8 06/16/2025 NA 139 06/16/2025 K 3.9 06/16/2025 CO2 24 06/16/2025 CL 107 06/16/2025 BUN 63 (H) 06/16/2025 CREATININE 2.57 (H) 06/16/2025 Lab Results Component Value Date WBC 6.8 06/15/2025 WBC 6.8 06/15/2025 HGB 10.7 (L) 06/15/2025 HGB 10.7 (L) 06/15/2025 HCT 32.5 (L) 06/15/2025 HCT 32.5 (L) 06/15/2025 MCV 89.0 06/15/2025 MCV 89.0 06/15/2025 PLT 163 06/15/2025 PLT 163 06/15/2025 US Retroperitoneal Complete Result Date: 06/15/2025 INDICATION: Renal failure, acute FINDINGS: Renal ultrasound obtained. No prior studies available for comparison. Right kidney: Normal in size, shape and echogenicity. No nephrolithiasis or hydronephrosis. Left kidney: Normal in size, shape and echogenicity. No nephrolithiasis or hydronephrosis. Bladder: Not visualized ureteral jets. Normal renal ultrasound. -------- FINAL REPORT -------- Dictated By: Yonis Burris Dictated Date: 06/15/2025 09:21 ET Assigned Physician: Yonis Burris Reviewed and Electronically Signed By: Yonis Burris Signed Date: 06/15/2025 09:23 ET Workstation ID: [id number] Transcribed By: Self Edit Transcribed Date: 06/15/2025 09:21 ET Vascular US duplex carotid bilateral Result Date: 06/15/2025 INDICATION: Stroke, follow-up FINDINGS: Duplex and color images are obtained of the extracranial carotid arterial systems bilaterally. No prior studies are available for comparison. Mild atherosclerotic plaque noted along the carotid bulb bilaterally. Normal velocities and waveforms noted bilaterally. Mildly elevated right greater than left external carotid artery velocities. There are normal enddiastolic velocities bilaterally with antegrade flow in both vertebral arteries. No evidence of hemodynamically significant stenosis. -------- FINAL REPORT -------- Dictated By: Yonis Burris Dictated Date: 06/15/2025 09:19 ET Assigned Physician: Yonis Burris Reviewed and Electronically Signed By: Yonis Burris Signed Date: 06/15/2025 09:21 ET Workstation ID: [id number] Transcribed By: Self Edit Transcribed Date: 06/15/2025 09:19 ET MR Brain wo Contrast Result Date: 06/14/2025 INDICATION: Stroke, follow up MR Brain without gadolinium Comparison: CT - CT HEAD WO CONTRAST - 06/14/25 01:52 EDT Findings: Microhemorrhage/mineralization along the left dorsal aspect of the erica/superior cerebellum Scattered T2/FLAIR hyperintensities throughout the subcortical and periventricularwhite matter, likely in keeping with chronic small vessel ischemic disease. Parenchymal volume losswith compensatory prominence of the ventricles and CSF spaces. No acute infarcts, midline shift or hydrocephalus. Vascular flow voids are intact. Orbital contents are unremarkable. The sinuses and mastoid air cells are clear. No focal bone lesion. Chronic changes without acute infarcts. This document has been electronically signed by: Jayme Cowart MD on 06/14/2025 18:22:10 CT Chest/Abdomen/Pelvis wo Contrast Result Date: 06/14/2025 CT CHEST, ABDOMEN AND PELVIS WITHOUT CONTRAST INDICATION: Respiratory failure TECHNIQUE: Chest, abdomen and pelvis CT without contrast. Multiplanar reformats were created and interpreted. The examination was performed utilizing dose reduction techniques. Total DLP: 978 mGy/cm COMPARISON: No priors available. FINDINGS: CT CHEST: LUNGS/PLEURA: Central airways are patent. Lungs are clear. Severe emphysematous changes. Presumed atelectasis at the right greater than left lung bases. No pleural effusion or pneumothorax. MEDIASTINUM: Thyroid gland is unremarkable. No mediastinal or hilar lymphadenopathy. Cardiac chambers are normal in size. No pericardial effusion. Esophagus is normal. CHEST WALL:No axillary lymphadenopathy or mass. Gynecomastia. CT ABDOMEN AND PELVIS: HEPATOBILIARY: No focal liver lesions. No cholelithiasis or biliary duct dilatation. SPLEEN: no focal lesion PANCREAS: No focal mass or ductal dilatation. ADRENALS: 1.5 cm right adrenal nodule. KIDNEYS/URETERS: Upper dense upper pole left renal cyst. Bilateral perinephric stranding nonspecific. Pyelonephritis not excluded PELVIC ORGANS/BLADDER: Circumferential thickening of the bladder, correlate with urinalysis. Prostatectomy. Penile prosthesis. PERITONEUM / RETROPERITONEUM: Trace free fluid in the pelvis. VESSELS: Scattered atherosclerotic calcifications throughout the aorta and its major branches. No aneurysm. GI TRACT: No bowel distention or wall thickening. Normal appendix. There is thickening at the GE junction. BONES AND SOFT TISSUES: Scattered degenerative changes seen throughout the bones. Anterolisthesisof L4 and L5. Multilevel spinal stenosis and neuroforaminal narrowing. No acute fracture. Soft tissues are unremarkable. 1. Severe emphysematous changes. Presumed atelectasis at the right greater than left lung bases. 2.There is thickening at the GE junction. Correlate with endoscopy. 3. Bilateral perinephric stranding nonspecific. Pyelonephritis not excluded. 4. Circumferential thickening of the bladder, correlate with urinalysis. 5. 1.5 cm right adrenal nodule. Recommend nonemergent adrenal protocol CT or MRI. -------- FINAL REPORT -------- Dictated By: Vincent Krishnamurthy Dictated Date: 06/14/2025 16:07 ET Assigned Physician: Vincent Krishnamurthy Reviewed and Electronically Signed By: Vincent Krishnamurthy Signed Date: 06/14/2025 16:12 ET Workstation ID: [id number] Transcribed By: Self Edit Transcribed Date: 06/14/2025 16:07 ET Transthoracic echocardiogram (TTE) complete with PRN contrast, bubble, strain, and 3D order panel Result Date: 06/14/2025 Left Ventricle: Left ventricle cavity size is normal. There is mild concentric hypertrophy. Systolic function is normal with an ejection fraction of 55-60%. Small basilar to mid inferior hypokinetic regional LV wall motion abnormality. There is no diastolic dysfunction. Left Atrium: Left atrium cavity size is normal. Right Ventricle: Right ventricle cavity appears normal. Systolic function is normal. Right Atrium: Right atrium cavity is normal. Mitral Valve: There is mild stenosis with a mean gradient of 5 mmHg at 82 bpm. Aortic Valve: There is no regurgitation or stenosis. XR Chest 1 View Result Date: 06/14/2025 INDICATION: Shortness of breath FINDINGS: Single portable AP view of the chest obtained. Compared to multiple prior studies most recent from June 15, 2025. Multiple overlying EKG leads and wires. Increased bronchovascular markings in the lung bases may be part secondary to technique and/or mild atelectasis. No pneumothorax, pneumomediastinum or pleural effusion. Heart normal in size and shape. Bony structures are grossly intact and normal for the patient's age. Possible mild bibasilar atelectasis. -------- FINAL REPORT -------- Dictated By: Yonis Burris Dictated Date: 06/14/2025 11:34 ET Assigned Physician: Yonis Burris Reviewed and Electronically Signed By: Yonis Burris Signed Date: 06/14/2025 11:37 ET Workstation ID: [id number] Transcribed By: Self Edit Transcribed Date: 06/14/2025 11:34 ET XR Chest 1 View Result Date: 06/14/2025 History: Dyspnea. Comparison: 10/28/10 Findings: Portable AP upright chest at 1:25 AM. The cardiac silhouette remains normal in size. Hilar contours and pulmonary vascularity are within normal limits. The lungs are grossly clear. Mild right hemidiaphragmatic elevation is similar to the previous study. Impression: No active pulmonary process identified. [place] PA ([id number]) -------- FINAL REPORT -------- Dictated By: Lashae Karimi Dictated Date: 06/14/2025 09:06 ET Assigned Physician: Lashae Karimi Reviewed and Electronically Signed By: Lashae Karimi Signed Date: 06/14/2025 09:07 ET Workstation ID: [id number] Transcribed By: Self Edit Transcribed Date: 06/14/2025 09:[address] Head wo Contrast Result Date: 06/14/2025 INDICATION: Head trauma, mod-severe CT head without contrast Comparison: None provided Findings: Nointracranial mass, midline shift, hydrocephalus, or acute hemorrhage. Nonspecific scattered white matter changes, most likely reflective of chronic small vessel ischemic changes in patient of this age. No significant mastoid effusion. No air fluid levels in paranasal sinuses. No acute fracture. No acute intracranial findings. Chronic changes as described. This document has been electronicallysigned by: Avni Forbes MD on 06/14/2025 02:42:21 About 35 minutes spent independently today in discharge process for this patient including but not limited to chart review, clinical decision making, care coordination. documented in this encounter Medications at Time of Discharge albuterol HFA (PROAIR HFA ; PROVENTIL HFA ; VENTOLIN HFA) 90 mcg/actuation inhaler INHALE 2 PUFFS INTO THE LUNGS EVERY 4 HOURS NEEDED FOR COUGH OR WHEEZING. 8.5 each 10/05/2024 amLODIPine (NORVASC) 5 mg tabletIndication s:hypertension Take 1.5 tablets (7.5 mg total) by mouth 1 (one) time each day. 45 each 5 06/16/2025 aspirin 81 mg EC tablet Take 1 tablet (81 mg total) by mouth 1 (one) time each day. atorvastatin (LIPITOR) 20 mg tablet TAKE 1 TABLET BY MOUTH EVERY DAY 90 tablet 1 12/28/2024 calcitrioL (ROCALTROL) 0.25 mcg capsule Take 1 capsule (0.25 mcg total) by mouth 1 (one) time each day. 07/01/2022 cefpodoxime (VANTIN) 200 mg tablet Take 1 tablet (200 mg total) by mouth 1 (one) time each day for 8 days. 8 each 06/16/2025 cholecalciferol (VITAMIN D-3) 50 mcg (2,000 unit) capsule Take 1 capsule (2,000 Units total) by mouth 1 (one) time each day. 03/11/2018 cloNIDine (HGGNZOXI-SUV-0) 0.2 mg/[address] 1 patch on the skin 1 (one) time per week. 30 patch 12/13/2024 famotidine (PEPCID) 20 mg tablet TAKE 1 TABLET BY MOUTH TWICE A DAY 180 tablet 1 01/27/2025 fluticasone propionate (FLONASE) 50 mcg/actuation nasal spray Administer 2 sprays into affected nostril(s) 1 (one) time each day. 12/28/2023 gabapentin (NEURONTIN) 100 mg capsule Take 2 capsules (200 mg total) by mouth 2 (two) times a day. 360 capsule 1 04/19/2025 gabapentin (NEURONTIN) 100 mg capsule Take 2 capsules (200 mg total) by mouth 2 (two) times a day. 180 capsule 1 04/17/2025 inhaler, assist devices (BREATHERITE MDI SPACER MISC) SPACER/AERO-HOLD ING CHAMBERS (BREATHERITE CECILIA SPACER ADULT) MISC 1 Device by Does not apply route as needed. use w flovent 11/25/2010 methocarbamoL (ROBAXIN) 750 mg tabletIndication s:Muscle spasm TAKE 1 TABLET BY MOUTH AT BEDTIME NEEDED (MUSCLE SPASM, WILL CAUSE SEDATION). 30 tablet 05/02/2025 nebivoloL (Bystolic) 10 mg tablet Take 1 tablet (10 mg total) by mouth 1 (one) time each day. 90 each 3 11/16/2024 6 predniSONE (DELTASONE) 20 mg tablet Take 2 tablets (40 mg total) by mouth 1 (one) time each day for 3 doses. 6 each 06/17/2025 5 documented as of this encounter Ordered Prescriptions Prescription Sig Dispense Quantity Refills Last Filled Start Date End Date cefpodoxime (VANTIN) 200 mg tablet Take 1 tablet (200 mg total) by mouth 1 (one) time each day for 8 days. 8 each 06/16/2025 5 amLODIPine (NORVASC) 5 mg tabletIndications: hypertension Take 1.5 tablets (7.5 mg total) by mouth 1 (one) time each day. 45 each 5 06/16/2025 6 predniSONE (DELTASONE) 20 mg tablet Take 2 tablets (40 mg total) by mouth 1 (one) time each day for 3 doses. 6 each 06/17/2025 5 documented in this encounter Discharge Disposition Disposition Code Departure Means Destination Comment s Home-Health Care [facility] documented in this encounter Progress Notes * Mylene Merida RN - 06/16/2025 12:44 PM EDT 06/16/25 1242 Initial Transition Plan Initial Transition Plan Home Health Care Back up Transition Plan Back up Transition plan Home Health Care Transportation Transportation at discharge Family What day is the transport expected? 06/16/25 Final Discharge Disposition Home Health Care Services Per MD patient cleared for discharge to home with comfort + VNA. Family to provide transport. * Donna Walton, OT - 06/15/2025 3:[address] [facility] Occupational Therapy Evaluation DATE: May TIME IN: 1400 TIME OUT: 1430 Pt: Alexandro Rubio ROOM: [address] [place] [address] Discharge Recommendation: Home with OT services Equipment Recommendation: shower chair Staff recommendations for safe patient handling: Supervision Modified Ramiro Scale Score: 0=No symptoms Assessment: Patient is a 79 y.o. male presenting for OT evaluation following admission due to UTI, lightheadedness and NSTEMI. During today's skilled acute care OT evaluation, pt demonstrated the following deficits: decreased endurance and intermittent dizziness. Pt currently requires assistance for ADLs and supervision level for functional transfers/mobility. Pt will continue to benefit from skilled acute care OT services this admission to facilitate improvements in the areas of deficit listedabove and to progress toward their PLOF with ADLs and IADLs. OT Time Calculation OT Start Time: 1400 OT Stop Time: 1430 OT Time Calculation (min): 30 min History of Present Illness: Patient is a 79 y.o. male admitted to [facility] on 06/14/2025. Occupational Therapy evaluation and treatment ordered to assess ADL independence, safety, and functional mobility for discharge planning. Patient Active Problem List Diagnosis Pure hypercholesterolemia Essential hypertension, benign Hyperpotassemia Chronic hepatitis (CMS/HCC V24, CMS/HCC V28) Depression Disorder of kidney and ureter Allergic rhinitis Asthmatic bronchitis , chronic (CMS/HCC V24, [facility] V28) Positive PPD PVD (peripheral vascular disease) with claudication ([facility] V24) Leg hematoma, left, sequela Gastroesophageal reflux disease with esophagitis without hemorrhage CKD (chronic kidney disease) stage 4, GFR 15-29 ml/min (CMS/HCC V24, [facility] V28) Urinary tract infection Fever Past Medical History: Diagnosis Date Cellulitis and abscess of oral soft tissues DX:Cellulitis and abscess of oral soft tissues; COMMENT: septic arthritis L knee Chronic hepatitis, unspecified ([facility] V24, [facility] V28) DX:Chronic hepatitis, unspecified (HCC); COMMENT: hepatitis C CKD (chronic kidney disease) stage 3, GFR 30-59 ml/min ([facility] V24, [facility] V28) 09/13/2015 DX:CKD (chronic kidney disease) stage 3, GFR 30-59 ml/min ([facility]); COMMENT: Follows with Dr. Leblanc Controlled type 2 diabetes mellitus with chronic kidney disease, without long- term current use of insulin ([facility] V24, [facility] V28) 08/25/2017 Essential hypertension, benign 04/25/05 DX:Essential hypertension, benign Essential hypertension, malignant 12/06/04 DX:Essential hypertension, malignant Hyperglycemia 06/05/2014 DX:Hyperglycemia Hyperpotassemia 12/09/04 DX:Hyperpotassemia Hypertrophy (benign) of prostate 06/04/01 DX:Hypertrophy (benign) of prostate Lipoma of unspecified site 11/17/02 DX:Lipoma of unspecified site 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 01/11/03 DX: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 Peripheral vascular disease, unspecified ([facility] V24) 04/07/2007 DX:Peripheral vascular disease, unspecified (HCC) Personal history of alcoholism ([facility] V24, [facility] V28) DX:Personal history of alcoholism (HCC) Personal history of malignant neoplasm of prostate DX:Personal history of malignant neoplasm of prostate 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 DX:Positive PPD Primary localized osteoarthrosis, lower leg 11/20/04 DX:Primary localized osteoarthrosis, lower leg Pure hypercholesterolemia 09/29/2012 DX:Pure hypercholesterolemia Unspecified disorder of kidney and ureter 04/07/2007 DX:Unspecified disorder of kidney and ureter; COMMENT: CREATININE USUALLY AROUND 2.0 Past Surgical History: Procedure Laterality Date KNEE ARTHROSCOPY W/ DEBRIDEMENT 12/03/04 PROCEDURE: CO ARTHRS KNEE DEBRIDEMENT/SHAVING ARTCLR CRTLG; COMMENT: L knee OTHER SURGICAL HISTORY PROCEDURE: CO CYSTOURETHROSCOPY INSERTION PERM URETHRAL STENT OTHER SURGICAL HISTORY PROCEDURE: HISTORY OTHER; COMMENT: left knee pinning PROSTATECTOMY 2001 PROCEDURE: PROSTATECTOMY; COMMENT: radical prostatectomy for Rillito's 6, Stage PT 2A NOMO Subjective I would like to go home with home services. Patient agreeable to engage in OT evaluation and treatment. Objective Patient was identified by name and x2. Hearing: Intact Speech: Intact Vision: Vision: Intact - 06/15/25 1400 OT Last Visit OT Received On 06/15/25 General Family/Caregiver Present No OT Time Calculation OT Start Time 1400 OT Stop Time 1430 OT Time Calculation (min) 30 min Precautions Medical Precautions Fall Risk Safety Interventions Call mckeon within reach;ID band on;Bed alarm;Side rails up x2 RUE Weight Bearing Status Full LUE Weight Bearing Status Full RLE Weight Bearing Status Full LLE Weight Bearing Status Full Vital Signs Patient Identification Yes Pain Assessment Pain Assessment No/denies pain Patient's Pain Goal No pain Home Living Type of Home House Lives With Daughter Home Adaptive Equipment None Home Layout Two level;Stairs to alternate level with rails;Bed/bath upstairs Alternate Level Stairs-Rails Rail on the left going up Alternate Level Stairs-Number of Steps 12 Home Access Stairs to enter with rails Entrance Stairs-Rails Rail on both sides Entrance Stairs-Number of Steps 4 Bathroom Shower/Tub Tub/shower unit Bathroom Toilet Standard Bathroom Equipment None Prior Function Level of Otero Independent with mobility and functional transfers Ambulation Status Household ambulator;Community ambulator Indoor Mobility Assistance Independent Stairs Assistance Independent Prior Device Use No prior device use Which is your dominant hand? Right ADL/IADL History ADL Assistance (Self Care) Independent Homemaking Assistance (Functional Cognition) Needed Some Help Meal Prep Needed Some Help Laundry Needed Some Help ADL Eating Assistance Independent Grooming Assistance Independent Oral Hygiene Assistance Independent Bathing Assistance Minimum assistance UE Dressing Assistance Independent LE Dressing Assistance Modified independent (while seated) Footwear Assistance Modified independent (while seated) Toileting Assistance Modified independent Bed Mobility Sitting to Lying Assistance Standby assistance Lying to Sitting Assistance Standby assistance Functional Transfers Sit to Stand Assistance Modified independent Toilet Transfer Assistance Standby assistance Functional Mobility Walking Assistance Standby assistance Device Rolling walker Static Sitting Balance Static Sitting-Level of Assistance Independent Dynamic Sitting Balance Dynamic Sitting-Level of Assistance Close supervision Static Standing Balance Static Standing-Level of Assistance Standby assistance Dynamic Standing Balance Dynamic Standing-Level of Assistance Close supervision Cognition Orientation Level Oriented X4 Proprioception Proprioception No apparent deficits Sensation Light Touch No apparent deficits Hand Function Gross Grasp Functional Coordination Coordination Functional RUE Assessment RUE Assessment Within Functional Limits LUE Assessment LUE Assessment Within Functional Limits RLE Assessment RLE Assessment Within Functional Limits LLE Assessment LLE Assessment Within Functional Limits OT Assessment OT Assessment Results Decreased ADL status;Decreased upper extremity strength;Decreased endurance;Decreased functional mobility;Decreased IADLs Prognosis Good Evaluation/Treatment Tolerance Patient tolerated treatment well Plan Treatment Interventions ADL retraining;Functional transfer training;Compensatory technique education OT Plan Skilled OT OT Frequency 2-5 days per week OT Duration of Sessions 30-60 min per session OT Treatments per day 1 time per day OT - Evaluation Status Complete OT Discharge Recommendations Home OT Equipment Recommended (TBD by home OT) OT Evaluation Time Entry OT Evaluation (Moderate) Time Entry 30 AM-PAC 6 Clicks Occupational Therapy Scoring Form: Unable: 1 A Lot: 2 A Little: 3 None: 4 How much help from another person does the patient currently need? Putting on and taking off regular lower body clothing [] [] [x] [] Bathing (including washing, rinsing and drying) [] [] [x] [] Toileting, which includes using toilet, bed cali, or urinal [] [] [x] [] Putting on and taking off regular upper body clothing [] [] [x] [] Personal grooming such as brushing teeth [] [] [] [x] Eating meals [] [] [] [x] Score: 20/24 Score indicates pt is safe/appropriate to discharge home with therapy recommendation listed above. *Score of 18 and below indicates rehab is needed* *Score of over 18 indicates pt is safe to discharge home* ADDITIONAL COMMENTS: Chart reviewed. RN clears pt for session. Pt agrees to participate and received supine with HOB elevated, bed alarm activated, and tray table and call light within reach. All lines in place. No family or guests present during session. Medical precautions observed appropriately. Initiated education on Role of OT, Transfer Safety, ADL Techniques and Safety , Energy Conservations strategies, Adaptive Equipment , Discharge Recommendation, Safety with AD, and importance of OOB activity . Pt verbalized understanding. EXIT STATUS: Session ended with patient sitting in chair, chair alarm activated, tray table and call light within reach, and RN made aware. Needs in reach. RN made aware. OT Goals Pt seen for OT eval and treatment session to assess ADL and functional status. See above for details of evaluation/treatment session. OT Assessment OT Assessment Results: Decreased ADL status, Decreased upper extremity strength, Decreased endurance, Decreased functional mobility, Decreased IADLs Prognosis: Good Evaluation/Treatment Tolerance: Patient tolerated treatment well Plan Treatment Interventions: ADL retraining, Functional transfer training, Compensatory technique education OT Plan: Skilled OT OT Frequency : 2-5 days per week OT Duration of Sessions: 30-60 min per session OT Treatments per day: 1 time per day OT - Evaluation Status: Complete OT Discharge Recommendations: Home OT Equipment Recommended: (TBD by home OT) Encounter Problems Encounter Problems (Active) Template: Occupational Therapy Problem: OT Short Term Goals Dates: Start: 06/15/25 Goal: Pt will perform toileting tasks including clothing management and hygiene with SBA only Dates: Start: 06/15/25 Expected End: 06/22/25 Goal: Pt will perform UB and LB dressing while seated with SBA only. Dates: Start: 06/15/25 Expected End: 06/22/25 Encounter Problems (Resolved) There are no resolved problems. Education Documentation No documentation found. Education Comments No comments found. Donna Walton OT * Jaspreet Ledesma MD - 06/15/2025 11:11 AM EDT Images from the original note were not included. LESIA PROGRESS NOTE Date: 06/15/2025 Author: Jaspreet Ledesma MD Patient ID: Alexandro Rubio Jr. is a 79 y.o. male : 1945 MR#: [id number] SUBJECTIVE Subjective Patient seen at bedside this morning. He reports feeling weak but denies any other complaints. - Vitals stable, he was quickly weaned off to room air. Remained afebrile post admission. - Blood cultures growing gram-negative bacilli with potentially E. coli from urine source, culture and sensitivity pending. He remains on 2 g of ceftriaxone - Kidney function improving although baseline seems around 2.3, he is at 3.01 today. Will obtain urine electrolytes. Objective Allergy- Patient has no known allergies. OBJECTIVE Vitals: 06/15/25 0052 06/15/25 0358 06/15/25 0748 06/15/25 0845 BP: 135/74 137/63 139/65 BP Location: Left arm Left arm Left arm Patient Position: Lying Lying Pulse: 64 60 64 Resp: 16 16 17 Temp: 36.3 ??C (97.4 ??F) 36.3 ??C (97.3 ??F) 36.6 ??C (97.9 ??F) TempSrc: Temporal Temporal Temporal SpO2: 98% 97% 97% 96% Weight: Height: Temp (24hrs), Av.4 ??C (97.6 ??F), Min:36.1 ??C (97 ??F), Max:37.2 ??C (98.9 ??F) Physical Exam General-patient appears comfortable, no acute distress HEENT-NCAT Eyes-anicteric Heart-Normal Rate and Rhythm Respiratory-CTAB Abdomen-Soft, nontender, nondistended Extremity-no significant lower extremity edema Neurology-awake alert oriented to time, place,and person Psych- Normal Mood and affect Skin-warm and dry Lab Results: CBC BMP Results from last 7 days Lab Units 06/15/2570406/14/25138 WBC AUTO K/mcL 6.8 6.8 8.3 HEMOGLOBIN g/dL 10.7* 10.7* 11.1* HEMATOCRIT % 32.5* 32.5* 33.9* PLATELETS K/mcL 163 163 175 LYMPHS PCT AUTO % 6.4 6.8 MONO PCT AUTO % 2.8 13.1 EOS PCT AUTO % 0.0 0.0 Results from last 7 days Lab Units 06/15/25 0706/14/25138 SODIUM mmol/L 138 139 POTASSIUM mmol/L 4.2 4.0 CHLORIDE mmol/L 105 107 CO2 mmol/L 24 24 ANION GAP 9 8 BUN mg/dL 55* 45* CREATININE mg/dL 3.01* 3.35* CALCIUM mg/dL 8.6 8.9 Results from last 7 days Lab Units 06/15/25 0706/14/25138 GLUCOSE mg/dL 160* 145* Results from last 7 days Lab Units 06/14/25 013 AST unit/L 66* ALT unit/L 40 Scheduled Medications PRN Medications IV Medications amLODIPine, 7.5 mg, Daily aspirin, 81 mg, Daily atorvastatin, 20 mg, Daily barium sulfate, 450 mL, Once calcitrioL, 0.25 mcg, Daily cefTRIAXone, 2 g, q24h cloNIDine, 1 patch, Weekly famotidine, 20 mg, Daily gabapentin, 200 mg, BID guaiFENesin, 600 mg, q12h LONNIE heparin (porcine), 5,000 Units, q8h LONNIE ipratropium-albuteroL, 3 mL, q6h metoprolol tartrate, 50 mg, BID nicotine, 1 patch, Daily predniSONE, 40 mg, Daily sodium chloride, 10 mL, BID acetaminophen, 650 mg, q4h PRN albuterol, 2.5 mg, q1h PRN ondansetron (ZOFRAN-ODT) disintegrating tablet, 4 mg, q8h PRN Or ondansetron, 4 mg, q8h PRN prochlorperazine, 10 mg, q6h PRN Or prochlorperazine, 10 mg, q6h PRN Or prochlorperazine, 25 mg, q12h PRN sodium chloride, 10 mL, PRN ASSESSMENT & PLAN Assessment/Plan Principal Problem: Urinary tract infection Active Problems: Fever No problem-specific Assessment & Plan notes found for this encounter. 79-year-old male with history of CKD and extensive urological history was initially admitted with sepsis in setting of UTI, he is troponins flat trended and he was found to have MARCIN. While receiving fluids, he went into flash pulmonary edema which quickly resolved and he was brought down to room air. Blood cultures growing gram-negative bacilli, sensitivity pending. He remains on 2 g of ceftriaxone. He was also started on steroids for ongoing wheezing during his acute flash pulmonary edema episode, will complete a total of 5 days of prednisone. Gram-negative urosepsis - Presented febrile on admission, no leukocytosis. UA positive for E. coli and blood cultures growing gram-negative bacilli. - CT was done without contrast with his MARCIN which was suggestive of possible bilateral pyelonephritis/cystitis but no obstruction. He remains on 2 g of ceftriaxone. - Follow-up on final cultures. MARCIN on CKD - Presented with creatinine of 3.35 and improved to 3.01. - Urine electrolytes ordered and pending. - Continue to trend BMP. Baseline creatinine seems to be around 2.3, he follows with nephrology outpatient. Acute hypoxemic respiratory failure: Resolved - Likely in setting of/pulmonary edema after receiving fluid. Resolved quickly and brought down to room air. - Compared to the last 5 days of steroids which was started during the acute episode. - Flat trended, suspect in setting of MARCIN and urosepsis. Chronic conditions: -Hypertension: Continue with [employer] amlodipine, clonidine, Lopressor. Despite sepsis, his blood pressure has been stable. - PAD: Continue with aspirin, statin. VTE Prophylaxis: Heparin Diet: regular Resuscitation: Full code Discharge barrier-pending cultures, acute kidney injury All labs, imaging, relevant history personally reviewed by me. Please be aware that the above note was completed using voice recognition software. If you have anyquestions please contact the author of this note for clarification. * Lisa Ridley PT - 06/15/2025 11:[address] [facility] Physical Therapy Evaluation & Treatment PT Discharge Recommendations: Home PT Staff Recommendations for safe patient handling: supervision with no assistive device AM-PAC 6 Clicks Scoring Form: Unable: 1 A Lot: 2 A Little: 3 None: 4 How much difficulty does the patient currently have? Turning over in bed (including adjustment of bedclothes, sheets, and blankets) [] [] [] [x] Sitting down on and standing up from a chair with arms (wheelchair, bedside commode etc [] [] [] [x] Moving from lying on back to sitting on the side of the bed [] [] [] [x] How much help from another person does the patient currently need? Moving to and from a bed to a chair ( including a wheelchair) [] [] [] [x] To walk in hospital room [] [] [] [x] Climbing 3-5 steps with a railing [] [] [x] [] Score: 21 /24 score indicates the pt is appropriate for discharge home with therapy recommendation above Precautions Medical Precautions: Fall Risk Safety Interventions: Call mckeon within reach, ID band on, Bed alarm, Chair alarm RUE Weight Bearing Status: Full LUE Weight Bearing Status: Full RLE Weight Bearing Status: Full LLE Weight Bearing Status: Full Fall prevention education provided including use of call light in hospital, use of appropriate assistive device, safe mobility techniques, and safety measures at home. PT Received On: 06/15/25 PT Start Time: 1100 PT Stop Time: 1130 PT Time Calculation (min): 30 min General Family/Caregiver Present: No Precautions Medical Precautions: Fall Risk Safety Interventions: Call mckeon within reach, ID band on, Bed alarm, Chair alarm RUE Weight Bearing Status: Full LUE Weight Bearing Status: Full RLE Weight Bearing Status: Full LLE Weight Bearing Status: Full Cognition Overall Cognitive Status: Within Functional Limits Arousal/Alertness: Appropriate responses to stimuli Orientation Level: Oriented X4 Following Commands: Follows all commands and directions without difficulty Hearing: Intact Vision: Intact Speech: Intact Integumentary: no acute issues noted History of Present Illness: Patient is a 79 y.o. male admitted to [facility] on 06/14/2025. Patient Active Problem List Diagnosis Pure hypercholesterolemia Essential hypertension, benign Hyperpotassemia Chronic hepatitis ([facility] V24, [facility] V28) Depression Disorder of kidney and ureter Allergic rhinitis Asthmatic bronchitis , chronic ([facility] V24, [facility] V28) Positive PPD PVD (peripheral vascular disease) with claudication ([facility] V24) Leg hematoma, left, sequela Gastroesophageal reflux disease with esophagitis without hemorrhage CKD (chronic kidney disease) stage 4, GFR 15-29 ml/min ([facility] V24, [facility] V28) Urinary tract infection Fever Past Medical History: Diagnosis Date Cellulitis and abscess of oral soft tissues DX:Cellulitis and abscess of oral soft tissues; COMMENT: septic arthritis L knee Chronic hepatitis, unspecified ([facility] V24, [facility] V28) DX:Chronic hepatitis, unspecified ([facility]); COMMENT: hepatitis C CKD (chronic kidney disease) stage 3, GFR 30-59 ml/min ([facility] V24, [facility] V28) 09/13/2015 DX:CKD (chronic kidney disease) stage 3, GFR 30-59 ml/min ([facility]); COMMENT: Follows with Dr. Leblanc Controlled type 2 diabetes mellitus with chronic kidney disease, without long- term current use of insulin ([facility] V24, [facility] V28) 08/25/2017 Essential hypertension, benign 04/25/05 DX:Essential hypertension, benign Essential hypertension, malignant 12/06/04 DX:Essential hypertension, malignant Hyperglycemia 06/05/2014 DX:Hyperglycemia Hyperpotassemia 12/09/04 DX:Hyperpotassemia Hypertrophy (benign) of prostate 06/04/01 DX:Hypertrophy (benign) of prostate Lipoma of unspecified site 11/17/02 DX:Lipoma of unspecified site 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 01/11/03 DX: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 Peripheral vascular disease, unspecified ([facility] V24) 04/07/2007 DX:Peripheral vascular disease, unspecified (HCC) Personal history of alcoholism ([facility] V24, [facility] V28) DX:Personal history of alcoholism (HCC) Personal history of malignant neoplasm of prostate DX:Personal history of malignant neoplasm of prostate 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 DX:Positive PPD Primary localized osteoarthrosis, lower leg 11/20/04 DX:Primary localized osteoarthrosis, lower leg Pure hypercholesterolemia 09/29/2012 DX:Pure hypercholesterolemia Unspecified disorder of kidney and ureter 04/07/2007 DX:Unspecified disorder of kidney and ureter; COMMENT: CREATININE USUALLY AROUND 2.0 Past Surgical History: Procedure Laterality Date KNEE ARTHROSCOPY W/ DEBRIDEMENT 12/03/04 PROCEDURE: CO ARTHRS KNEE DEBRIDEMENT/SHAVING ARTCLR CRTLG; COMMENT: L knee OTHER SURGICAL HISTORY PROCEDURE: CO CYSTOURETHROSCOPY INSERTION PERM URETHRAL STENT OTHER SURGICAL HISTORY PROCEDURE: HISTORY OTHER; COMMENT: left knee pinning PROSTATECTOMY 2001 PROCEDURE: PROSTATECTOMY; COMMENT: radical prostatectomy for Jesus's 6, Stage PT 2A NOMO Social History Home Living Environment: Home Living Type of Home: House Lives With: Daughter Home Adaptive Equipment: None Home Layout: Two level, Stairs to alternate level with rails, Bed/bath upstairs Alternate Level Stairs-Rails: Rail on the right going up Alternate Level Stairs-Number of Steps: 12 Home Access: Stairs to enter with rails Entrance Stairs-Rails: Rail on the right going up Entrance Stairs-Number of Steps: 4 Prior Function Level of Otero: Independent with mobility and functional transfers Ambulation Status: Household ambulator, Community ambulator Indoor Mobility Assistance: Independent Stairs Assistance : Independent Prior Device Use: No prior device use Which is your dominant hand?: Right 06/15/25 1100 PT Last Visit PT Received On 06/15/25 General Family/Caregiver Present No PT Time Calculation PT Start Time 1100 PT Stop Time 1130 PT Time Calculation (min) 30 min Precautions Medical Precautions Fall Risk Safety Interventions Call mckeon within reach;ID band on;Bed alarm;Chair alarm RUE Weight Bearing Status Full LUE Weight Bearing Status Full RLE Weight Bearing Status Full LLE Weight Bearing Status Full Vital Signs Patient Identification Yes Heart Rate 87 Heart Rate Source Monitor SpO2 98 % Oxygen Therapy Oxygen Therapy None (Room air) Cognition Overall Cognitive Status WFL Arousal/Alertness Appropriate responses to stimuli Orientation Level Oriented X4 Following Commands Follows all commands and directions without difficulty Home Living Type of Home House Lives With Daughter Home Adaptive Equipment None Home Layout Two level;Stairs to alternate level with rails;Bed/bath upstairs Alternate Level Stairs-Rails Rail on the right going up Alternate Level Stairs-Number of Steps 12 Home Access Stairs to enter with rails Entrance Stairs-Rails Rail on the right going up Entrance Stairs-Number of Steps 4 Prior Function Level of [place] Independent with mobility and functional transfers Ambulation Status Household ambulator;Community ambulator Indoor Mobility Assistance Independent Stairs Assistance Independent Prior Device Use No prior device use Which is your dominant hand? Right Sensation Light Touch No apparent deficits Proprioception Proprioception No apparent deficits Static Sitting Balance Static Sitting-Level of Assistance Independent Static Sitting-Balance Support Feet supported;No upper extremity supported Dynamic Sitting Balance Dynamic Sitting-Level of Assistance Independent Dynamic Sitting-Balance Forward lean Dynamic Sitting-Balance Support Feet supported;No upper extremity supported Static Standing Balance Static Standing-Level of Assistance Close supervision Static Standing-Balance Support No upper extremity supported Dynamic Standing Balance Dynamic Standing-Level of Assistance Close supervision Dynamic Standing-Balance Ambulation Dynamic Standing-Balance Support No upper extremity supported Bed Mobility Rolling Left and Right Assistance Independent Sitting to Lying Assistance Independent Lying to Sitting Assistance Independent Transfers Sit to Stand Assistance Supervision Chair/Bed to Chair/Bed Transfer Assistance Supervision Ambulation Walking Assistance Supervision Device No device Distance Ambulated (ft) 40 Comments The pt initially ambulated with a walker and was able to ambulate 50' with walker and S. He was feeling better after ambulating so walker removed and he was able to ambulate another 40' withno AD and S. He states he felt stronger the more he ambulated. (Pt willing to sit in bedside chair after session and chair alarm in place and nursing made aware) RUE Assessment RUE Assessment Within Functional Limits LUE Assessment LUE Assessment Within Functional Limits RLE Assessment RLE Assessment Within Functional Limits LLE Assessment LLE Assessment Within Functional Limits PT Assessment PT Assessment Results Decreased strength;Decreased endurance Prognosis Good Evaluation/Treatment Tolerance Patient tolerated treatment well Medical Staff Made Aware Yes Plan Treatment/Interventions LE strengthening/ROM;Endurance training;Patient/family training;Gait training;Balance training PT Plan Skilled PT PT Frequency 2-5 days per week PT Discharge Recommendations Home PT PT - Evaluation Status Complete PT Evaluation Time Entry PT Evaluation (Moderate) Time Entry 30 ADDITIONAL COMMENTS: Chart reviewed. RN clears pt for session. Pt agrees to participate and presented in supine upon PT arrival. All lines in place. Gait belt utilized throughout treatment to maximize safety. Medical precautions observed appropriately. Initiated education on the importance of PT, bed mobility safety, Transfer Safety, Ambulation Safety , Therapy Plan of Care, Home Safety, Energy Conservations strategies, and importance of OOB activity . Pt verbalized understanding. EXIT STATUS: Session ended with patient supine, tray table and call light within reach, and RN made aware. Physical Therapy Assessment/Plan Alexandro Rubio Jr. is a 79 y.o. male admitted to [facility] on 06/14/2025 for Lightheadedness [R42] Urinary tract infection [N39.0] NSTEMI (non-ST elevated myocardial infarction) (CMS/[facility] V24, CMS/[facility] V28) [I21.4] Urinary tract infection without hematuria, site unspecified [N39.0] . Pt presents with BLE strength, decreased activity tolerance below functional baseline. Pt performed bed mobility Independent, , Transfers with Supervision, None and ambulates Supervision with None 40 ft . Pt will benefit from skilled acute PT during hospital stay to improve the deficits listed above and optimize function. PT recommends Home PT when medically stable for safe discharge and to optimize functional mobility and independence. Goals Encounter Problems Encounter Problems (Active) Template: Physical Therapy Problem: PT Short Term Goals Dates: Start: 06/15/25 Goal: PT STG 1 the pt will go up and down 12 steps with 1 railing and supervision Dates: Start: 06/15/25 Expected End: 06/22/25 Goal: PT STG 2 the pt will ambulate 75' with no assistive device independently Dates: Start: 06/15/25 Expected End: 06/22/25 Encounter Problems (Resolved) There are no resolved problems. Education Documentation Mobility Training, taught by Lisa Ridley, PT at 06/15/2025 12:43 PM. Learner: Patient Readiness: Eager Method: Explanation Response: Verbalizes Understanding Comment: Educated pt on the recommendation for home PT to inc strength and endurance and he is in agreement Education Comments No comments found. 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 Yes ICC spoke with patient over the phone, patient lives with his daughter where he is independent withhis care, he uses a cane for ambulation, drives, does not wear home O2 and is not a . Preferred pharmacy is [facility]. Per patient address on file is incorrect, adjusted to correct address which is [address] [place] [address] [place]. Discharge plan is home no services when medically ready * Lisa Ridley PT - 06/14/2025 2:25 PM EDT Therapy session was attempted for Alexandro Rubio Jr. by Lisa Ridley PT on 06/14/2025. The patientwas unable to be seen for the following reason(s): Other: attempted to see pt in the am and he was being placed on high flow, attempted to see in pm and going for stat testing Plan for return visit: Tomorrow * Blanquita Nolasco RN - 06/14/2025 5:23 AM EDT .ED RN HANDOFF (All Zuñiga Below Must Be Completed) Reason/Diagnosis for Admission: UTI Type of Admission: [] Medsurg, [x] Telemetry Already in a Hospital Bed: [] Yes / [x] No Room Considerations/Precautions (ex: fever, diarrhea, or any infectious concerns): [x] Yes / [] No Watch Guard Gate: [x] Yes / [] No If YES, Cardiac Rhythm: [x] NSR, [] SB, [] ST, [] A-FIB, [] A-Flutter, [] Pacemaker, [] 1st Degree HB, [] 2nd Degree HB, [] 3rd Degree HB Reason for Watch Guard Gate: VS: Visit Vitals BP 109/54 (BP Location: Left arm;Upper, Patient Position: Lying) Pulse 64 Temp 36.7 ??C (98.1 ??F) (Oral) Resp 20 Ht 1.727 m (68 ) Wt 78.9 kg (174 lb) SpO2 96% BMI 26.46 kg/m?? Smoking Status Every Day BSA 1.93 m?? Current Mental Status: A/O x [x]4, []3, []2, []1 Current Ambulation Status: full assist IV Access: [x] Yes / [] No Field IV present: [] Yes / [x] No Hx of Violence: [] Yes / [x] No / [] Unknown Fall Risk:[x] Yes / [] No Yellow Bracelet Applied [x] Yes / [] No Yellow Socks Applied [x] Yes / [] No Patient Belongings inventoried and BL completed: [x] Yes / [] No Patient belongings stored in the security closet: [] Yes (If Yes please supply Security bag #): [x] No Patient Medications stored in Pharmacy: [] Yes (If Yes please supply Medication Security bag #): [x] No ED Summary of Care: Hx chronic hepatitis, CKD stage III, type 2 diabetes, prostate cancer, urethral stricture Pt coming in after having 2 falls in the past two days d/t dizziness and weakness. Pt also experienced left sided weakness X4 months Dizziness is with positional changes. With his most recent fall pt thinks he hit the front of his head but denies LOC Neuros intact Sensation intact Pt 102 F temp upon arrival to ED has since resolved d/t tylenol TROPS 111/125 BNP 659 Sed rate 42 Viral panel negative Pt has UTI CT head negative Pt incontinent Submitted by and Phone Extension: Blanquita * MILI Varghese - 06/14/2025 12:46 AM EDT HPI Chief Complaint Patient presents with Dizziness Pt coming from home brought in by EMS for c/o a fall today trying to get out of bed d/t dizziness no headstrike or LOC this also happened yesterday too where pt was walking felt dizzy and fell. Pt endorses back pain d/t to fall. Pt left sided arm weakness for EMS. HPI Patient is a 79-year-old with history of chronic hepatitis, CKD stage III, controlled type 2 diabetes mellitus, PVD with claudication of the right lower extremity s/p peripheral artery bypass, HTN, complicated urological history (history of prostate cancer, urethral stricture) presenting today for evaluation of 2 falls over the past 2 days due to dizziness and weakness. Patient reports he has been experience left-sided weakness over the past 4 months, he states that this is chronic in nature and ebbs and flows in acuity. Patient denies any visual changes accompanied with the dizziness. He reports that the dizziness is only present with positional changes, most notably with standing up from a seated position. He reports first fall occurred last night when he was trying to get up from his bed-he had an episode of dizziness that caused him to fall. Denies any loss of hearing or ringing in his ears-but does report sensation of the room spinning. He denies any head strike or loss of consciousness at this time. Then again today at approximately 4 PM he had another episode of dizziness that occurred when he tried to stand up which resulted in him falling. He thinks he hit his head during this fall however hedenies any loss of consciousness or disorientation. He was able to help himself up from the ground.Ultimately he called 911 at the recommendation of his daughters due to concern for repeated episodes of dizziness and falls over the past 2 days He reports taking aspirin 81 mg daily after having vascular surgery on his RLE. Denies any history of DVTs or PEs. Patient denies any chest pain or palpitations. He does report occasional shortness of breath that occurs with the dizziness however resolves after the episode. Reports a chronic cough that has not changed in nature and is nonproductive, no hemoptysis. Reports smoking history of half pack a day. Denies any history of COPD but does have asthma. Denies any fevers or chills at home. No nausea, vomiting, diarrhea. No sick contacts. Rosina Coma Scale Score: 15 NIH Stroke Scale: 0 WELLS Score: 0 Patient History Past Medical History: Diagnosis Date Cellulitis and abscess of oral soft tissues DX:Cellulitis and abscess of oral soft tissues; COMMENT: septic arthritis L knee Chronic hepatitis, unspecified ([facility] V24, [facility] V28) DX:Chronic hepatitis, unspecified ([facility]); COMMENT: hepatitis C CKD (chronic kidney disease) stage 3, GFR 30-59 ml/min ([facility] V24, [facility] V28) 09/13/2015 DX:CKD (chronic kidney disease) stage 3, GFR 30-59 ml/min ([facility]); COMMENT: Follows with Dr. Leblanc Controlled type 2 diabetes mellitus with chronic kidney disease, without long- term current use of insulin ([facility] V24, [facility] V28) 08/25/2017 Essential hypertension, benign 04/25/05 DX:Essential hypertension, benign Essential hypertension, malignant 12/06/04 DX:Essential hypertension, malignant Hyperglycemia 06/05/2014 DX:Hyperglycemia Hyperpotassemia 12/09/04 DX:Hyperpotassemia Hypertrophy (benign) of prostate 06/04/01 DX:Hypertrophy (benign) of prostate Lipoma of unspecified site 11/17/02 DX:Lipoma of unspecified site 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 01/11/03 DX: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 Peripheral vascular disease, unspecified ([facility] V24) 04/07/2007 DX:Peripheral vascular disease, unspecified (HCC) Personal history of alcoholism ([facility] V24, [facility] V28) DX:Personal history of alcoholism (HCC) Personal history of malignant neoplasm of prostate DX:Personal history of malignant neoplasm of prostate 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 DX:Positive PPD Primary localized osteoarthrosis, lower leg 11/20/04 DX:Primary localized osteoarthrosis, lower leg Pure hypercholesterolemia 09/29/2012 DX:Pure hypercholesterolemia Unspecified disorder of kidney and ureter 04/07/2007 DX:Unspecified disorder of kidney and ureter; COMMENT: CREATININE USUALLY AROUND 2.0 Past Surgical History: Procedure Laterality Date KNEE ARTHROSCOPY W/ DEBRIDEMENT 12/03/04 PROCEDURE: CO ARTHRS KNEE DEBRIDEMENT/SHAVING ARTCLR CRTLG; COMMENT: L knee OTHER SURGICAL HISTORY PROCEDURE: CO CYSTOURETHROSCOPY INSERTION PERM URETHRAL STENT OTHER SURGICAL HISTORY PROCEDURE: HISTORY OTHER; COMMENT: left knee pinning PROSTATECTOMY 2001 PROCEDURE: PROSTATECTOMY; COMMENT: radical prostatectomy for Rillito's 6, Stage PT 2A NOMO Family History Problem Relation Name Age of Onset No Known Problems Mother No Known Problems Father Other (Other: shot) Brother No Known Problems Sister Other (Other: weak heart ) Sister Social History Tobacco Use Smoking status: Every Day Current packs/day: 0.50 Average packs/day: 0.5 packs/day for 61.7 years (30.9 ttl pk-yrs) Types: Cigarettes Start date: 09/21/1963 Smokeless tobacco: Never Substance Use Topics Alcohol use: No Drug use: No Review of Systems Review of Systems Pertinent positives and negatives as documented in HPI Physical Exam ED Triage Vitals Temp Pulse Resp BP -- -- -- -- SpO2 Temp src Heart Rate Source Patient Position -- -- -- -- BP Location FiO2 (%) -- -- Physical Exam Vitals and nursing note reviewed. Constitutional: General: He is not in acute distress. Appearance: Normal appearance. He is normal weight. He is not ill-appearing, toxic-appearing or diaphoretic. HENT: Head: Normocephalic and atraumatic. Right Ear: Ear canal and external ear normal. Left Ear: Ear canal and external ear normal. Nose: Nose normal. No congestion or rhinorrhea. Eyes: General: No scleral icterus. Right eye: No discharge. Left eye: No discharge. Extraocular Movements: Extraocular movements intact. Conjunctiva/sclera: Conjunctivae normal. Pupils: Pupils are equal, round, and reactive to light. Comments: No nystagmus Neck: Comments: No meningeal signs Cardiovascular: Rate and Rhythm: Normal rate and regular rhythm. Pulses: Normal pulses. Heart sounds: Normal heart sounds. No murmur heard. No friction rub. No gallop. Pulmonary: Effort: Pulmonary effort is normal. No respiratory distress. Breath sounds: Normal breath sounds. No stridor. No wheezing, rhonchi or rales. Chest: Chest wall: No tenderness. Abdominal: General: Abdomen is flat. There is no distension. Palpations: Abdomen is soft. Tenderness: There is no abdominal tenderness. Musculoskeletal: General: No swelling, tenderness, deformity or signs of injury. Normal range of motion. Cervical back: Normal range of motion. No rigidity. Right lower leg: No edema. Left lower leg: No edema. Comments: No midline tenderness, no supraspinatus tenderness. No warmth to touch. No palpable mass or fluctuance Skin: General: Skin is warm and dry. Capillary Refill: Capillary refill takes less than 2 seconds. Coloration: Skin is not jaundiced or pale. Findings: No bruising, erythema, lesion or rash. Neurological: General: No focal deficit present. Mental Status: He is alert and oriented to person, place, and time. Mental status is at baseline. Cranial Nerves: No cranial nerve deficit. Sensory: No sensory deficit. Motor: No weakness. Coordination: Coordination normal. Comments: Grossly normal cerebellar testing. Able to complete [id number] bilaterally. No altered sensation throughout upper extremities, lower extremities ED Course & [facility] ED Course as of 06/14/25 0209 ThuJun 14, 2025 0126 ECG 12 lead My independent interpretation of the ECG is sinus rhythm with sinus arrhythmia- ventricular rate of 86 bpm, normal CO at 128, normal QRS at 90, normal QTc at [address] elevations or depressions to suggest ischemia. [SO] 0136 XR Chest 1 View My independent interpretation of chest x-ray is increased pulmonary vasculature however appears to be chronic in comparison to previous chest x-ray from 2010. No blunting of costophrenic angles that would be suggestive of an old pleural effusion. Intact lung markings, no opacities or cough elevations that would be suggestive of pneumonia. No evidence of a pneumothorax. No acute bony deformities or abnormalities [SO] 0156 Patient is febrile at 102. Ordered acetaminophen at 1000 mg. Currently not meeting SIRS criteria will hold off on antibiotics at this time will order lactic and ESR. [SO] 0[address] Sign out given to Dr. Mujica pending laboratory workup UA and CT head. Patient remains hemodynamically stable at this time. [SO] ED Course User Index [SO] MILI Varghese Medical Decision Making Patient is a 79-year-old with history of chronic hepatitis, CKD stage III, controlled type 2 diabetes mellitus with chronic kidney disease, HTN presenting today for evaluation of 2 falls over the past 2 days due to dizziness and weakness. On initial physical exam patient appears well and is in no acute distress, nontoxic-appearing. Independent interpretation of vital signs significant for temperature of 102. Patient given acetaminophen 1000 mg. Differential diagnosis includes but is not limited to acute infection such as acute viral respiratory infection (COVID, flu, RSV), pneumonia, BPPV. Less likely to be stroke at this time. NIH stroke scale scoring 0, no neurological deficits on exam. In addition this weakness appears to be chronic in nature. Doubt posterior stroke the source of his dizziness at this time. There is no vertical or rotary nystagmus that would be suggestive of a central cause of his vertigo. Considered ACS, however this is less likely as patient is asymptomatic and without chest pain. ECG obtained as workup for dizziness is nonischemic. Pending troponin. Less likely to be PE or DVT. There is no lower extremity swelling on exam, patient has no history of DVT or PE. No tachycardia or hemoptysis, he is not hypoxic. He is low risk per Wells criteria scoring 1.5 translating to a 1.3% risk. Workup consisted of CBC to assess for infection, as this may be a contributing factor to his dizziness. CMP to assess for electrolyte abnormality, assess hepatic and renal function. BNP to assess forfluid overload, patient appears to be euvolemic on exam, there is no lower extremity edema. COVID, RSV, flu swab to assess for acute virus. Obtain CT head to evaluate for acute bleed or trauma, as he does report hitting his head with fall earlier today. Evaluation of head is atraumatic and normocephalic. No meningeal signs, nuchal rigidity, sensitivity to light, do not suspect meningitis. UA to assess for UTI, as infection may be attributing factor to his dizziness. Patient does have extensive urological history including a urethral stricture. He does not have any urinary symptoms however he could be asymptomatic. Patient does report lumbar pain that is nonradiating-he states that this started after his fall yesterday. He was still able to ambulate independently without assistance after this but does note thatthere is some pain in the area. Denies any paresthesias extending to the lower extremities. No red flag signs including urinary or fecal incontinence, no acute changes in of his left lower extremity, neurological exam intact and nonfocal. Do not suspect cauda equina. Patient is febrile however I suspect underlying source of his infection could be due to a pneumonia, upper respiratory infection, or UTI-do not suspect spinal epidural abscess. Patient remains hemodynamically stable and is pending laboratory workup and CT head-will be medicalsignout pending and reevaluation. Patient presentation, course, treatment, and disposition discussed and agreed with Dr. Peguero. Procedures MILI Varghese 06/14/25 0209 Cosigned by Roberto Peguero MD at 06/15/2025 8:44 PM EDT Associated attestation - Roberto Peguero MD - 06/15/2025 8:44 PM EDT I performed a history and physical examination and discussed the patient management with preceding Advanced Practice Provider. I agree with the history and physical assessment and plan of care, with the following exceptions: None I was present for the following valdovinos procedures: None Roberto Peguero MD documented in this encounter H&P Notes * Bharti Garcia NP - 06/14/2025 9:54 AM EDT Images from the original note were not included. [facility] HISTORY AND PHYSICAL Please contact author [Bharti Garcia NP] via [employer]. Patient: Alexandro Rubio Jr. Admission Date/Time: 06/14/2025 12:54 AM : 1945 [79 y.o.] Patient's PCP: Jagruti Cardenas MD Attending Provider: Jaspreet Ledesma MD CHIEF COMPLAINT Dizziness HISTORY OF PRESENT ILLNESS This is a 79-year-old male with a past medical history significant for hypertension, hyperlipidemia, chronic kidney disease stage IV follows with Dr. Leblanc, peripheral vascular disease, chronic hepatitis and a complicated urological history. He has a history of prostate cancer status post prostatecto my, urethral stricture and a history of AUS placed which became infected and was removed 2022. He presents to the emergency room with complaints of dizziness and weakness. He states that this has been ongoing for over a month but has gotten progressively worse. He tells me that he slid out of bed yesterday and was unable to get up despite his daughter trying to help him. The dizziness seems worsewhen he stands but not always. He has no vision changes no difficulty chewing swallowing or speaking. He expressly denied chest pain/pressure is no shortness of breath but he does sometimes have a cough with white phlegm. No abdominal pain no flank pain. No blood in the urine or stool. He reports a decrease appetite stating that the food just does not taste good. While in the emergency room he did develop a fever. Workup: Chest x-ray which showed no active pulmonary process EKG #1: Sinus rhythm with sinus arrhythmia rate of 86 bpm with PVCs. No acute ischemic changes EKG #2 sinus rhythm rate of 66 bpm no acute ischemic changes EKG #3 normal sinus rhythm 62 bpm no acute ischemic changes EKGs are my read official cardiology read is pending. Echocardiogram is pending Abdomen and pelvis CT pending Brain CT showed no acute intracranial findings including mass shift midline shift hydrocephalus or acute hemorrhage likely chronic small vessel ischemic changes. Brain MRI is pending CBC showed a white count of 8.3 hemoglobin 11.1 hematocrit 33.9 platelets 175 neutrophils of 6.5 Sed rate 42 Procalcitonin of 10.6 Chemistries random glucose 145 BUN 45 creatinine of 3.35 albumin 2.9 AST is 66 ALT 40 alkaline phosphatase of 117 total protein 6.3 lactate 1.3 UA positive for protein 300 moderate blood nitrate negative WBCs of 50 squamous cell epithelials 75bacteria negative Urine culture pending Blood culture pending Respiratory viral panel negative BNP of 659 High sensitive troponin 111, repeat 125 Vital signs Tmax was 38.9 pulse last recorded at 63 respiratory rate 14 blood pressure 121/55 oxygen saturation 98% on room air Orthostatic bp 133/56, 130/60, 121/55 He was given a liter of normal saline and 1 dose of ceftriaxone. Review of Systems As stated in hpi MEDICAL HISTORY Past Medical History Past Medical History: Diagnosis Date ??? Cellulitis and abscess of oral soft tissues DX:Cellulitis and abscess of oral soft tissues; COMMENT: septic arthritis L knee ??? Chronic hepatitis, unspecified ([facility]/HCC V24, CMS/HCC V28) DX:Chronic hepatitis, unspecified (HCC); COMMENT: hepatitis C ??? CKD (chronic kidney disease) stage 3, GFR 30-59 ml/min (CMS/HCC V24, CMS/HCC V28) 09/13/2015 DX:CKD (chronic kidney disease) stage 3, GFR 30-59 ml/min ([facility]); COMMENT: Follows with Dr. Leblanc ??? Controlled type 2 diabetes mellitus with chronic kidney disease, without long-term current use of insulin ([facility] V24, [facility] V28) 08/25/2017 ??? Essential hypertension, benign 04/25/05 DX:Essential hypertension, benign ??? Essential hypertension, malignant 12/06/04 DX:Essential hypertension, malignant ??? Hyperglycemia 06/05/2014 DX:Hyperglycemia ??? Hyperpotassemia 12/09/04 DX:Hyperpotassemia ??? Hypertrophy (benign) of prostate 06/04/01 DX:Hypertrophy (benign) of prostate ??? Lipoma of unspecified site 11/17/02 DX:Lipoma of unspecified site ??? 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 Peripheral vascular disease, unspecified ([facility] V24) 04/07/2007 DX:Peripheral vascular disease, unspecified (HCC) ??? Personal history of alcoholism ([facility] V24, [facility] V28) DX:Personal history of alcoholism (HCC) ??? Personal history of malignant neoplasm of prostate DX:Personal history of malignant neoplasm of prostate ??? 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 DX:Positive PPD ??? Primary localized osteoarthrosis, lower leg 11/20/04 DX:Primary localized osteoarthrosis, lower leg ??? Pure hypercholesterolemia 09/29/2012 DX:Pure hypercholesterolemia ??? Unspecified disorder of kidney and ureter 04/07/2007 DX:Unspecified disorder of kidney and ureter; COMMENT: CREATININE USUALLY AROUND 2.0 Stage IV chronic kidney disease per Dr. Leblanc's last note 11/16/2024 Past Surgical History Past Surgical History: Procedure Laterality Date ??? KNEE ARTHROSCOPY W/ DEBRIDEMENT 12/03/04 PROCEDURE: CO ARTHRS KNEE DEBRIDEMENT/SHAVING ARTCLR CRTLG; COMMENT: L knee ??? OTHER SURGICAL HISTORY PROCEDURE: CO CYSTOURETHROSCOPY INSERTION PERM URETHRAL STENT ??? OTHER SURGICAL HISTORY PROCEDURE: HISTORY OTHER; COMMENT: left knee pinning ??? PROSTATECTOMY 2001 PROCEDURE: PROSTATECTOMY; COMMENT: radical prostatectomy for Rillito's 6, Stage PT 2A NOMO Social History reports that he has been smoking cigarettes. He started smoking about 61 years ago. He has a 30.9 pack-year smoking history. He has never used smokeless tobacco. He reports that he does not drink alcohol and does not use drugs. Family History family history includes No Known Problems in his father, mother, and sister; Other: weak heart inhis sister; Other: shot in his brother. Allergies has No Known Allergies. Home Medications No current facility-administered medications on file prior to encounter. Current Outpatient Medications on File Prior to Encounter Medication Sig Dispense Refill ??? amLODIPine (NORVASC) 5 mg tablet Take 1 tablet (5 mg total) by mouth 1 (one) time each day. (Patient taking differently: Take 1.5 tablets (7.5 mg total) by mouth 1 (one) time each day.) 90 each 1 ??? aspirin 81 mg EC tablet Take 1 tablet (81 mg total) by mouth 1 (one) time each day. ??? atorvastatin (LIPITOR) 20 mg tablet TAKE 1 TABLET BY MOUTH EVERY DAY 90 tablet 1 ??? calcitrioL (ROCALTROL) 0.25 mcg capsule Take 1 capsule (0.25 mcg total) by mouth 1 (one) time each day. ??? cloNIDine (NFUNJVOX-AKR-7) 0.2 mg/[address] 1 patch on the skin 1 (one) time per week. 30 patch 0 ??? gabapentin (NEURONTIN) 100 mg capsule Take 2 capsules (200 mg total) by mouth 2 (two) times a day. 360 capsule 1 ??? nebivoloL (Bystolic) 10 mg tablet Take 1 tablet (10 mg total) by mouth 1 (one) time each day. 90 each 3 ??? albuterol HFA (PROAIR HFA ; PROVENTIL HFA ; VENTOLIN HFA) 90 mcg/actuation inhaler INHALE 2 PUFFS INTO THE LUNGS EVERY 4 HOURS NEEDED FOR COUGH OR WHEEZING. 8.5 each 0 ??? cholecalciferol (VITAMIN D-3) 50 mcg (2,000 unit) capsule Take 1 capsule (2,000 Units total) bymouth 1 (one) time each day. (Patient not taking: Reported on 06/14/2025) ??? famotidine (PEPCID) 20 mg tablet TAKE 1 TABLET BY MOUTH TWICE A DAY 180 tablet 1 ??? fluticasone propionate (FLONASE) 50 mcg/actuation nasal spray Administer 2 sprays into affectednostril(s) 1 (one) time each day. (Patient not taking: Reported on 06/14/2025) ??? gabapentin (NEURONTIN) 100 mg capsule Take 2 capsules (200 mg total) by mouth 2 (two) times a day. 180 capsule 1 ??? inhaler, assist devices (BREATHERITE MDI SPACER MISC) SPACER/AERO-HOLDING CHAMBERS (BREATHERITECOLL SPACER ADULT) MISC 1 Device by Does not apply route as needed. use w flovent (Patient not taking: Reported on 06/14/2025) ??? methocarbamoL (ROBAXIN) 750 mg tablet TAKE 1 TABLET BY MOUTH AT BEDTIME NEEDED (MUSCLE SPASM, WILL CAUSE SEDATION). 30 tablet 0 OBJECTIVE Vitals Visit Vitals BP 121/55 (BP Location: Right arm, Patient Position: Standing) Pulse 63 Temp 36 ??C (96.8 ??F) Resp 14 Temp (24hrs), Av ??C (98.6 ??F), Min:36 ??C (96.8 ??F), Max:38.9 ??C (102 ??F) Body mass index is 26.46 kg/m??. No results found for: PTWT , PTHT Physical Examination GENERAL: This is a 79-year-old male seen in his room he is resting not in acute distress HEENT: Patient is normocephalic atraumatic pupils round and reactive no scleral icterus EOMI. Oral mucous membranes are pink and moist neck is supple without JVD. Trachea is midline CARDIAC: S1 and S2 heard without murmurs rubs gallops. RESPIRATORY: Lungs are clear to auscultation in the upper lobe. Apoplectic popping in both lower lobes versus mild fluid GI: Abdomen is soft no guarding no rebound tenderness bowel sounds are present. : Deferred EXTREMITIES: No asymmetrical edema distal pulses are palpable. Feet are warm and well perfused withcapillary refill less than 2 seconds. NEUROLOGICAL: Patient is alert and oriented. Cranial nerves II through XII are intact strength is 5/5. There is no pronator drift. Positive finger to nose. DTRs are intact. Babinski is downgoing. LAB RESULTS (most recent) HEMATOLOGY Lab Results Component Value Date WBC 8.3 06/14/2025 HGB 11.1 (L) 06/14/2025 HCT 33.9 (L) 06/14/2025 MCV 89.9 06/14/2025 PLT 175 06/14/2025 CHEMISTRY Lab Results Component Value Date GLUCOSE 145 (H) 06/14/2025 NA 139 06/14/2025 K 4.0 06/14/2025 CO2 24 06/14/2025 CL 107 06/14/2025 BUN 45 (H) 06/14/2025 CREATININE 3.35 (H) 06/14/2025 EGFR 18 (L) 06/14/2025 CALCIUM 8.9 06/14/2025 ANIONGAP 8 06/14/[address] Head wo Contrast Final Result No acute intracranial findings. Chronic changes as described. This document has been electronically signed by: Avni Forbes MD on 06/14/2025 02:42:21 XR Chest 1 View Final Result Impression: No active pulmonary process identified. [place] ([id number]) -------- FINAL REPORT -------- Dictated By: Lashae Karimi Dictated Date: 06/14/2025 09:06 ET Assigned Physician: Lashae Karimi Reviewed and Electronically Signed By: Lashae Karimi Signed Date: 06/14/2025 09:07 ET Workstation ID: [id number] Transcribed By: Self Edit Transcribed Date: 06/14/2025 09:06 ET Vascular US duplex carotid bilateral (Results Pending) MR Brain wo Contrast (Results Pending) Transthoracic echocardiogram (TTE) complete with PRN contrast, bubble, strain, and 3D order panel (Results Pending) CT Abdomen Pelvis w Contrast (Results Pending) ASSESSMENT & PLAN 1. Fever of unknown origin. Suspect early urosepsis. Urine and blood cultures are pending. CT abdomen and pelvis pending. Chest x-ray negative. UA was negative for bacteria but I am questioning possible obstructive uropathy. I have continued ceftriaxone for now. Bladder scan for 170 and Madsen catheter ordered for strict I&O. 2. Acute on chronic stage IV renal disease. Possibly secondary to decreased p.o. intake and infection obstructive uropathy has not yet been ruled out. He was given a liter of normal saline and we arecontinuing him on LR at 100 cc an hour for 1 more liter. Will follow renal function close and avoidnephrotoxins. Low suspicion to involve nephrology. 3. Acute hypoxic respiratory failure. Known asthma and continued tobacco use. Patient was stable earlier this morning but he went down for an echocardiogram and became quite tachypneic with oxygen saturation down into the 80s. Suspect he went into failure while in echo. Stat chest xray, lasix 40mg given x 1. Dr Smith ironworker wire fence erector consulted he recommends another 80 mg of Lasix now and will see him shortly. We gave him with Solu-Medrol 125 and will continue at 60 mg every 6 hours, DuoNebs, as needed albuterol. He was initially placed on high flow which did help but Dr. De Paz recommends BiPAP which we are putting him on now. We have attempted to get an ABG but so far have been unable they are trying 1 more time and if unsuccessful we will add on a VBG. Repeat x-ray showing possible atelectasis. Chest CT has been ordered and the patient will go down when he is more stable. The patientis already on ceftriaxone and I have added azithromycin and Mucinex. He is breathing better holding off on a formal ICU consult for now. 4. Dizziness. Ongoing x 1 month. Possibly volume related however orthostatics were not particularlyalarming (after fluid bolus) he was still complaining of dizziness. Brain CT was negative. Given his vascular history we will proceed with an MRI neurochecks PT/OT evaluation and fasting lipid profile in AM. Continue low-dose aspirin and atorvastatin. If MRI is positive will need to increase the dose of aspirin. 5. Elevated troponin. This is in the setting of acute on chronic renal insufficiency. EKGs are stable. No chest pain. Will continue to trend until troponins peaked. Add on CK CK-MB. He will be on telemetry and he is already on aspirin beta-fadumo and atorvastatin. 6. Elevated BNP 659. Chest x-ray is negative however on my exam he does have some crackles in the bases. Given elevation of BNP, troponins and dizziness will proceed with an echocardiogram. 7. Central hypertension. He is on amlodipine 7.5 mg daily Catapres and Bystolic blood pressure stable now. 8. Prediabetes hemoglobin A1c was 6.6 in March. 9. Peripheral vascular disease status post bypass. Continue aspirin and atorvastatin 10. Tobacco abuse smokes half a pack a day. Cessation was strongly advised and nicotine replacementordered. I spent greater than 90 minutes reevaluating this patient providing emergency care and discussing with ironworker wire fence erector and nursing. Admission checklist [] Code status: Full Code - Default [] VTE Prophylaxis: sq heparin [] Diet order on admission: Dietary Orders (From admission, onward) Start Ordered 06/14/[address] [facility]; General, Cardiac; Regular; Cardiac Diet effective now Question Answer Comment Location [facility] Diet Type (req) General Diet Type (req) Cardiac General Diet Regular Diet Type (cardiac) Cardiac 06/14/25 0931 [] Lines, tubes, drains: [] Medication reconciliation Health Care proxy with Phone number: His daughter Daniel Virk [phone]. Case and plan discussed extensively with Dr Ledesma. Cosigned by Jaspreet Ledesma MD at 06/15/2025 9:13 AM EDT Associated attestation - Jaspreet Ledesma MD - 06/15/2025 9:13 AM EDT This is a split/shared visit with Bharti Garcia NP. I personally performed the medical decision making (MDM) for the care of this patient on 06/14/2025 as documented below 79-year-old male with past medical history significant for CKD, extensive urologic history including prostate cancer status post prostatectomy, urethral stricture, AUS complicated by infection statuspost removal initially presented with dizziness and weakness for a month. He initially presented febrile with a fever of 102 and had serial EKGs with no acute ischemic changes. CT head was unremarkable for any acute changes. On lab work, he was found to have elevated troponins which were flat. UA was positive for UTI. Blood cultures sent. He was initially hemodynamically stable but after receiving normal saline, he developed a transient flash pulmonary edema for which he required IV Lasix and it resolved promptly. - UTI: Follow-up on final urine cultures, start on ceftriaxone for now, obtain CT abdomen with patient's urological history. - Acute on chronic CKD: Patient follows with Dr. Leblanc outpatient, suspect in setting of UTI. ObtainCT to rule out obstruction. - During his hypoxemia, patient was extremely wheezy on exam, will start on steroids for 5 days. - Troponin elevated likely in setting of MARCIN/UTI, low suspicion for ACS. Jaspreet Ledesma MD 06/15/25 9:12 AM EDT documented in this encounter Consult Notes * Dave Leblanc MD - 06/15/2025 8:58 PM EDT Images from the original note were not included. Reason for Consultation: Acute kidney Injury History of Present Illness: 79-year-old male with history of CKD and extensive urological history was initially admitted with sepsis in setting of UTI, he is troponins flat trended and he was found to have MARCIN. While receiving fluids, he went into flash pulmonary edema which quickly resolved and he was brought down to room air. Blood cultures growing gram-negative bacilli, sensitivity pending. He was also started on steroids for ongoing wheezing during his acute flash pulmonary edema episode, will complete a total of 5 days of prednisone. Renal consult requested as patient is increased to CT was done without contrast with his MARCIN which was suggestive of possible bilateral pyelonephritis/cystitis but no obstruction Patient is feeling well at present time SUBJECTIVE Review of Systems General: Denies fever or chills. Lungs: Denies cough, shortness of breath, chest congestion. Heart: Denies chest pain, palpitations, orthopnea, dyspnea on exertion, or edema. Abdomen: Denies change in appetite, nausea, vomiting, diarrhea, or constipation, or abdominal pain. : Denies hesitancy, frequency, burning with urination, or blood in urine. Musculoskeletal: Denies muscle pain or weakness, denies any joint swelling. Skin: Denies skin changes, rashes, or open lesions. Past Medical History: Diagnosis Date Cellulitis and abscess of oral soft tissues DX:Cellulitis and abscess of oral soft tissues; COMMENT: septic arthritis L knee Chronic hepatitis, unspecified ([facility] V24, [facility] V28) DX:Chronic hepatitis, unspecified (HCC); COMMENT: hepatitis C CKD (chronic kidney disease) stage 3, GFR 30-59 ml/min ([facility] V24, [facility] V28) 09/13/2015 DX:CKD (chronic kidney disease) stage 3, GFR 30-59 ml/min ([facility]); COMMENT: Follows with Dr. Leblanc Controlled type 2 diabetes mellitus with chronic kidney disease, without long- term current use of insulin ([facility] V24, [facility] V28) 08/25/2017 Essential hypertension, benign 04/25/05 DX:Essential hypertension, benign Essential hypertension, malignant 12/06/04 DX:Essential hypertension, malignant Hyperglycemia 06/05/2014 DX:Hyperglycemia Hyperpotassemia 12/09/04 DX:Hyperpotassemia Hypertrophy (benign) of prostate 06/04/01 DX:Hypertrophy (benign) of prostate Lipoma of unspecified site 11/17/02 DX:Lipoma of unspecified site 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 01/11/03 DX: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 Peripheral vascular disease, unspecified ([facility] V24) 04/07/2007 DX:Peripheral vascular disease, unspecified (HCC) Personal history of alcoholism ([facility] V24, [facility] V28) DX:Personal history of alcoholism (HCC) Personal history of malignant neoplasm of prostate DX:Personal history of malignant neoplasm of prostate 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 DX:Positive PPD Primary localized osteoarthrosis, lower leg 11/20/04 DX:Primary localized osteoarthrosis, lower leg Pure hypercholesterolemia 09/29/2012 DX:Pure hypercholesterolemia Unspecified disorder of kidney and ureter 04/07/2007 DX:Unspecified disorder of kidney and ureter; COMMENT: CREATININE USUALLY AROUND 2.0 Past Surgical History: Procedure Laterality Date KNEE ARTHROSCOPY W/ DEBRIDEMENT 12/03/04 PROCEDURE: CO ARTHRS KNEE DEBRIDEMENT/SHAVING ARTCLR CRTLG; COMMENT: L knee OTHER SURGICAL HISTORY PROCEDURE: CO CYSTOURETHROSCOPY INSERTION PERM URETHRAL STENT OTHER SURGICAL HISTORY PROCEDURE: HISTORY OTHER; COMMENT: left knee pinning PROSTATECTOMY 2001 PROCEDURE: PROSTATECTOMY; COMMENT: radical prostatectomy for Rillito's 6, Stage PT 2A NOMO Social History Socioeconomic History Marital status: Spouse name: Not on file Number of children: Not on file Years of education: Not on file Highest education level: Not on file Occupational History Not on file Tobacco Use Smoking status: Every Day Current packs/day: 0.50 Average packs/day: 0.5 packs/day for 61.7 years (30.9 ttl pk-yrs) Types: Cigarettes Start date: 09/21/1963 Smokeless tobacco: Never Substance and Sexual Activity Alcohol use: No Drug use: No Sexual activity: Not on file Other Topics Concern Not on file Social History Narrative Not on file Family History Problem Relation Name Age of Onset No Known Problems Mother No Known Problems Father Other (Other: shot) Brother No Known Problems Sister Other (Other: weak heart ) Sister Home Medications albuterol HFA (PROAIR HFA ; PROVENTIL HFA ; VENTOLIN HFA) 90 mcg/actuation inhaler INHALE 2 PUFFS INTO THE LUNGS EVERY 4 HOURS NEEDED FOR COUGH OR WHEEZING. amLODIPine (NORVASC) 5 mg tablet Take 1 tablet (5 mg total) by mouth 1 (one) time each day. aspirin 81 mg EC tablet Take 1 tablet (81 mg total) by mouth 1 (one) time each day. atorvastatin (LIPITOR) 20 mg tablet TAKE 1 TABLET BY MOUTH EVERY DAY calcitrioL (ROCALTROL) 0.25 mcg capsule Take 1 capsule (0.25 mcg total) by mouth 1 (one) time each day. cholecalciferol (VITAMIN D-3) 50 mcg (2,000 unit) capsule Take 1 capsule (2,000 Units total) by mouth 1 (one) time each day. cloNIDine (NZEKFCSE-UXG-9) 0.2 mg/[address] 1 patch on the skin 1 (one) time per week. famotidine (PEPCID) 20 mg tablet TAKE 1 TABLET BY MOUTH TWICE A DAY fluticasone propionate (FLONASE) 50 mcg/actuation nasal spray Administer 2 sprays into affected nostril(s) 1 (one) time each day. gabapentin (NEURONTIN) 100 mg capsule Take 2 capsules (200 mg total) by mouth 2 (two) times a day. gabapentin (NEURONTIN) 100 mg capsule Take 2 capsules (200 mg total) by mouth 2 (two) times a day. inhaler, assist devices (BREATHERITE MDI SPACER MISC) SPACER/AERO-HOLDING CHAMBERS (BREATHERITE CECILIA SPACER ADULT) MISC 1 Device by Does not apply route as needed. use w flovent methocarbamoL (ROBAXIN) 750 mg tablet TAKE 1 TABLET BY MOUTH AT BEDTIME NEEDED (MUSCLE SPASM, WILL CAUSE SEDATION). nebivoloL (Bystolic) 10 mg tablet Take 1 tablet (10 mg total) by mouth 1 (one) time each day. Allergies: No Known Allergies Current Medications: amLODIPine, 7.5 mg, oral, Daily aspirin, 81 mg, oral, Daily atorvastatin, 20 mg, oral, Daily barium sulfate, 450 mL, oral, Once calcitrioL, 0.25 mcg, oral, Daily cefTRIAXone, 2 g, intravenous, q24h cloNIDine, 1 patch, transdermal, Weekly famotidine, 20 mg, oral, Daily gabapentin, 200 mg, oral, BID guaiFENesin, 600 mg, oral, q12h LONNIE heparin (porcine), 5,000 Units, subcutaneous, q8h LONNIE ipratropium-albuteroL, 3 mL, nebulization, q6h metoprolol tartrate, 50 mg, oral, BID nicotine, 1 patch, transdermal, Daily predniSONE, 40 mg, oral, Daily sodium chloride, 10 mL, intravenous, BID PRN medications: acetaminophen, albuterol, calcium carbonate, ondansetron (ZOFRAN-ODT) disintegrating tablet OR ondansetron, prochlorperazine OR prochlorperazine OR prochlorperazine, Insert peripheral IV AND Maintain IV access AND Saline lock IV AND sodium chloride AND sodium chloride OBJECTIVE Physical Exam: Current Vitals: Blood pressure (!) 169/69, pulse 90, temperature 36.6 ??C (97.9 ??F), temperature source Temporal, resp. rate 22, height 1.727 m (67.99 ), weight 78.9 kg (173 lb 15.1 oz), SpO2 96%. Intake/Output: I/O last 3 completed shifts: In: 1175 (14.9 mL/kg) [P.O.:720; I.V.:205 (2.6 mL/kg); IV Piggyback:250] Out: 1500 (19 mL/kg) [Urine:1500 (0.5 mL/kg/hr)] Weight: 78.9 kg General : Lying comfortably in bed in no acute distress HEENT: Normocephalic, sclerae anicteric, buccal mucosa moist no oral lesions Neck: Supple, symmetrical, trachea midline, no JVD Lungs: Clear to auscultation bilaterally, respirations unlabored Chest wall: No tenderness or deformity Heart: Regular rate and rhythm. No murmurs. No JVD. No hepatojugular reflux. Abdomen: Soft, non-tender, bowel sounds active all four quadrants. Extremities: Extremities normal, atraumatic, no cyanosis or edema Pulses: 2+ and symmetric all extremities Skin: Skin warm, dry, and intact with no visible rashes, petechia, or icterus. Neurologic: Awake, alert, appropriate. No overt focal deficits. Laboratory Data: Urine No results found for: COLORUA , CLARITYUA , SPECGRAVUA , PHUA , PROTUA , GLUCOSEUA , KETONESUA , BILIRUBINUA , BLOODUA , UROBILINOGUA , NITRITEUA Lab Results Component Value Date MICROALBUR 737.0 (H) 08/09/2024 CBC Results from last 7 days Lab Units 06/15/25 0705 06/14/25 0139 WBC AUTO K/mcL 6.8 6.8 8.3 HEMOGLOBIN g/dL 10.7* 10.7* 11.1* HEMATOCRIT % 32.5* 32.5* 33.9* PLATELETS K/mcL 163 163 175 CMP Results from last 7 days Lab Units 06/15/25 0705 06/14/25 0139 SODIUM mmol/L 138 139 POTASSIUM mmol/L 4.2 4.0 CHLORIDE mmol/L 105 107 CO2 mmol/L 24 24 BUN mg/dL 55* 45* CREATININE mg/dL 3.01* 3.35* EGFR mL/min/1.73m2 21* 18* GLUCOSE mg/dL 160* 145* CALCIUM mg/dL 8.6 8.9 Anemia MBD No results found for: IRON , TIBC , FERRITIN Lab Results Component Value Date PTH 51.8 06/07/2025 CALCIUM 8.6 06/15/2025 ASSESSMENT AND PLAN Acute kidney injury. Acute kidney injury patient likely secondary to infection/sepsis induced tubular damage He also had flash pulmonary edema with renal hypoperfusion Obstruction ruled out Doubt acute GN/interstitial disease Stage IIIb/IV CKD at baseline Urinary tract infection Hypertension I recommend holding off on IV fluids and diuretics at the present time Recheck renal function again in a.m. Antibiotics as per medical team If discharged I will follow-up patient in the outpatient setting -Avoid nephrotoxins, such as NSAIDs, iodinated contrast, and phosphate enema, as able. -Dose all mediations for appropriate eGFR Thank you again for the consultation on your patient, we will be happy to follow along with you. documented in this encounter Plan of Treatment Upcoming Encounters Date Type Department Care Team (Late st Contact Info) Description 07/17/2025 9:[address] [facility] CT Scan [address] [place] [phone] 07/27/2025 10:45 AM EST Office Visit Orthopedic Surgery [place] [id number] [phone] Neville Jacome DPM [address] [address] 08/10/2025 1:15 PM EST [place] [facility] [place] [address] [place] [phone] Jagruti Cardenas MD [address] [place] [address] Scheduled Referrals Name Type Priority Associated Diagnoses Order Schedule Ambulatory referral to Home Health Outpatient Referral Routine Lightheadedness Dizziness 1 Occurrences starting 06/16/2025 until 06/16/2026 documented as of this encounter Procedures Procedure Name Priority Date/Time Associated Diagnosis Comments ECG OUTSIDE 06/17/2025 ECG ANNOTATED 06/17/2025 EXTRA TUBES Routine 06/16/2025 5:31 AM EDT LAVENDER - EDTA Routine 06/16/2025 5:31 AM EDT PHOSPHORUS Timed 06/16/2025 5:31 AM EDT MAGNESIUM Timed 06/16/2025 5:31 AM EDT BASIC METABOLIC PANEL Timed 06/16/2025 5:31 AM EDT SODIUM, URINE, RANDOM STAT 06/15/2025 11:53 PM EDT PROTEIN, URINE, RANDOM Routine 11:53 PM EDT CREATININE, URINE, RANDOM Routine 06/15/2025 11:53 PM EDT TROPONIN I HIGH SENSITIVITY Routine 06/15/2025 7:05 AM EDT LIPID PANEL WITH REFLEX TO DIRECT LDL Routine 06/15/2025 7:05 AM EDT CBC WITH AUTO DIFFERENTIAL Routine 06/15/2025 7:05 AM EDT COMPLETE BLOOD COUNT Timed 06/15/2025 7:05 AM EDT CBC AND DIFFERENTIAL Routine 06/15/2025 7:05 AM EDT BASIC METABOLIC PANEL Routine 06/15/2025 7:05 AM EDT ECG ANNOTATED 06/15/2025 VAS US DUPLEX CAROTID BILATERAL Routine 06/14/2025 9:38 PM EDT Dizziness US RETROPERITONEAL COMPLETE Routine 06/14/2025 9:38 PM EDT MR BRAIN WO CONTRAST Routine 06/14/2025 5:[address] CHEST/ABDOMEN/PELVIS WO CONTRAST STAT 06/14/2025 2:50 PM EDT ARTERIAL BLOOD GAS Routine 06/14/2025 11 :59 AM EDT OXYGEN THERAPY, ADULT Routine 06/14/2025 11:39 AM EDT XR CHEST 1 VIEW STAT 06/14/2025 11:32 AM EDT TROPONIN I HIGH SENSITIVITY STAT 06/14/2025 11:09 AM EDT CREATINE KINASE AND CKMB Routine 06/14/2025 11:09 AM EDT EXTRA TUBES Routine 06/14/2025 11:05 AM EDT LAVENDER - EDTA Routine 06/14/2025 11:05 AM EDT TRANSTHORACIC ECHOCARDIOGRAM (TTE) COMPLETE W/ CONTRAST Routine 06/14/2025 10:56 AM EDT Urinary tract infection without hematuria, site unspecified NSTEMI (non-ST elevated myocardial infarction) (CMS/HCC V24, CMS/HCC V28) Dizziness Essential hypertension, benign CKD (chronic kidney disease) stage 4, GFR 15-29 ml/min (CMS/HCC V24, CMS/HCC V28) Fever, unspecified fever cause ECG 12-LEAD STAT 06/14/2025 4:46 AM EDT RESPIRATORY VIRUS PANEL MOLECULAR STUDY STAT 06/14/2025 3:44 AM EDT TROPONIN I HIGH SENSITIVITY STAT 06/14/2025 3:44 AM EDT URINALYSIS WITH REFLEX MICROSCOPIC AND CULTURE STAT 06/14/2025 3:39 AM EDT [place] URINE CULTURE TUBE STAT 06/14/20 3:39 AM EDT URINALYSIS WITH REFLEX MICROSCOPIC AND CULTURE STAT 06/14/2025 3:39 AM EDT CULTURE URINE STAT 06/14/2025 3:39 AM EDT ECG 12-LEAD STAT 06/14/2025 3:[address] HEAD WO CONTRAST STAT 06/14/2025 2 :17 AM EDT [id number], RSV, FLU A AND B QUALITATIVE RT-PCR, INTERNAL LAB STAT 06/14/2025 1:44 AM EDT CULTURE BLOOD STAT 06/14/2025 1:44 AM EDT LACTATE, WITH REFLEX STAT 06/14/2025 1:39 AM EDT TROPONIN I HIGH SENSITIVITY STAT 06/14/2025 1:39 AM EDT PROCALCITONIN STAT 06/14/2025 1:39 AM EDT CBC WITH AUTO DIFFERENTIAL STAT 06/14/2025 1:39 AM EDT SEDIMENTATION RATE STAT 06/14/2025 1: 39 AM EDT CBC AND DIFFERENTIAL STAT 06/14/2025 1:39 AM EDT B-TYPE NATRIURETIC PEPTIDE STAT 06/14/2025 1:39 AM EDT CREATINE KINASE AND CKMB Add-On 06/14/2025 1:39 AM EDT COMPREHENSIVE METABOLIC PANEL STAT 06/14/2025 1:39 AM EDT XR CHEST 1 VIEW STAT 06/14/2025 1:30 AM EDT BLOOD CULTURE PATHOGENS BY PCR Routine 06/14/2025 1:28 AM EDT CULTURE BLOOD STAT 06/14/2025 1:28 AM EDT ECG 12-LEAD Routine 06/14/2025 1:21 AM EDT documented in this encounter Results * ECG-Outside (06/17/2025) us Provider Onbase MD ECG ORDERABLES Final Result * ECG-Annotated (06/17/2025) us Provider Onbase ECG ORDERABLES Final Result * Lavender tube (06/16/2025 5:31 AM EDT) [facility] Extra Tube Hold for add-ons. 06/16/2025 8:01 AM EDT [facility] Comment:Auto resulted. Blood Venous blood specimen / Unknown Venipuncture / Unknown 06/16/2025 5:31 AM EDT 06/16/2025 6:12 AM EDT Jaspreet Ledesma MD LAB BLOOD ORDERABLES Final Resul t [facility] [address] [place] [address], [place] [phone] * (ABNORMAL) Basic metabolic panel (06/16/2025 5:31 AM EDT) [facility] Sodium 139 133 - 145 mmol/L LAB CHEMISTRY METHOD 06/16/2025 6:[address] [facility] Potassium 3.9 3.5 - 5.5 mmol/L LAB CHEMISTRY METHOD 06/16/2025 6:[address] [facility] Chloride 107 96 - 110 mmol/L LAB CHEMISTRY METHOD 06/16/2025 6:[address] [facility] CO2 24 21 - 32 mmol/L LAB CHEMISTRY METHOD 06/16/2025 6:[address] [facility] Anion Gap 8 3 - 11 LAB CHEMISTRY METHOD 06/16/2025 6:[address] [facility] Glucose 170(H) 70 - 100 mg/dL LAB CHEMISTRY METHOD 06/16/2025 6:[address] [facility] BUN 63(H) 5 - 25 mg/dL LAB CHEMISTRY METHOD 06/16/2025 6:[address] [facility] Creatinine 2.57(H) 0.70 - 1.30 mg/dL LAB CHEMISTRY METHOD 06/16/2025 6:50 AM EDT [facility] eGFR 25(L) >=60 mL/min/1. 73m2 LAB CHEMISTRY METHOD 06/16/2025 6:50 AM EDT [facility] Comment:Calculation based on the Chronic Kidney Disease Epidemiology Collaboration (CKD-EPI) equation refit without adjustment for race. BUN/Creatinine Ratio 24.5 LAB CHEMISTRY METHOD 06/16/2025 6:50 AM EDT [facility] Calcium 8.8 8.5 - 10.5 mg/dL LAB CHEMISTRY METHOD 06/16/2025 6:50 AM EDT [facility] Blood Venous blood specimen / Unknown Venipuncture / Unknown 06/16/2025 5:31 AM EDT 06/16/2025 6:10 AM EDT us Jaspreet Ledesma MD LAB BLOOD ORDERABLES Final Resul t [facility] [address] [place] [address], [place] [phone] * Magnesium (06/16/2025 5:31 AM EDT) Magnesium 2.2 1.9 - 2.6 mg/dL LAB CHEMISTRY METHOD 06/16/2025 6:50 AM EDT [facility] Blood Venous blood specimen / Unknown Venipuncture / Unknown 06/16/2025 5:31 AM EDT 06/16/2025 6:10 AM EDT us Jaspreet Ledesma MD LAB BLOOD ORDERABLES Final Resul t [facility] [address] [place] [address], [place] [phone] * Phosphorus (06/16/2025 5:31 AM EDT) Phosphorus 3.4 2.5 - 4.5 mg/dL LAB CHEMISTRY METHOD 06/16/2025 6:50 AM EDT [facility] Blood Venous blood specimen / Unknown Venipuncture / Unknown 06/16/2025 5:31 AM EDT 06/16/2025 6:10 AM EDT us Jaspreet Ledesma MD LAB BLOOD ORDERABLES Final Resul t Performing Organization Address [facility] Co de Phone Number [facility] [address] [place] [address], [place] [phone] * Sodium, urine, random (06/15/2025 11:53 PM EDT) Sodium, Ur 18 mmol/L LAB CHEMISTRY METHOD 06/16/2025 1:10 AM EDT [facility] Urine Urine specimen from urethra / Unknown Non-blood Collection / Unknown 06/15/2025 11:53 PM EDT 06/16/2025 12:24 AM EDT us Jaspreet Ledesma MD LAB URINE ORDERABLES Final Resul t Performing Organization Address [facility] de Phone Number [facility] [address] [place] [address], [place] [phone] * Creatinine, urine, random (06/15/2025 11:53 PM EDT) Creatinine, Urine 66.0 mg/dL LAB CHEMISTRY METHOD 06/16/2025 1:10 AM EDT [facility] Urine Urine specimen from urethra / Unknown Non-blood Collection / Unknown 06/15/2025 11:53 PM EDT 06/16/2025 12:24 AM EDT Bharti Garcia NP LAB URINE ORDERABLES Final Res ult Performing Organization Address City/[facility]/ZIP Co de Phone Number [facility] [address] [place] [address], [place] [phone] * Protein, urine, random (06/15/2025 11:53 PM EDT) [facility] Protein, Urine 95 mg/dL LAB CHEMISTRY METHOD 06/16/2025 1:[address] [facility] Urine Urine specimen obtained by clean catch procedure / Unknown Non-blood Collection / Unknown 06/15/2025 11:53 PM EDT 06/16/2025 12:24 AM EDT Bharti Garcia [employer] LAB URINE ORDERABLES Final Res ult [facility] [address] [place] [address], [place] [phone] * (ABNORMAL) CBC auto differential (06/15/2025 7:05 AM EDT) [facility] WBC 6.8 4.8 - 10.8 K/mcL LAB HEMETOLOGY METHOD 06/15/2025 7:[address] [facility] RBC 3.70(L) 4.50 - 5.50 M/mcL LAB HEMETOLOGY METHOD 06/15/2025 7:[address] [facility] Hemoglobin 10.7(L) 13.5 - 17.5 g/dL LAB HEMETOLOGY METHOD 06/15/2025 7:34 AM T [facility] Hematocrit 32.5(L) 42.0 - 54.0 % LAB HEMETOLOGY [facility] MCV 89.0 79.0 - 98.0 FL LAB HEMETOLOGY METHOD 06/15/2025 7:[address] [facility] MCH 29.3 27.0 - 32.0 pcg LAB HEMETOLOGY METHOD 06/15/2025 7:[address] [facility] MCHC 32.9 32.0 - 37.0 g/dL LAB HEMETOLOGY METHOD 06/15/2025 7:[address] [facility] RDW 13.5 11.0 - 15.0 % LAB HEMETOLOGY METHOD 06/15/2025 7:[address] [facility] Platelets 163 130 - 400 K/mcL LAB HEMETOLOGY METHOD 06/15/2025 7:[address] [facility] MPV 12.0(H) 7.0 - 11.0 FL LAB HEMETOLOGY METHOD 06/15/2025 7:[address] [facility] NRBC 0.0 <1.0 % LAB HEMETOLOGY METHOD 06/15/2025 7:[address] [facility] NRBC Absolute 0.00 <0.10 K/mcL LAB HEMETOLOGY METHOD 06/15/2025 7:[address] [facility] Neutrophils Relative 90.1 % LAB HEMETOLOGY METHOD 06/15/2025 7:[address] [facility] Lymphocytes Relative 6.4 % LAB HEMETOLOGY METHOD 06/15/2025 7:[address] [facility] Monocytes Relative 2.8 % LAB HEMETOLOGY METHOD 06/15/2025 7:[address] [facility] Eosinophils Relative 0.0 % LAB HEMETOLOGY METHOD 06/15/2025 7:[address] [facility] Basophils Relative 0.1 % LAB HEMETOLOGY METHOD 06/15/2025 7:[address] [facility] Immature Granulocytes Relative 0.6 % LAB HEMETOLOGY METHOD 06/15/2025 7:[address] [facility] Neutrophils Absolute 6.15 1.50 - 7.00 K/mcL LAB HEMETOLOGY METHOD 06/15/2025 7:34 AM EDT [facility] Lymphocytes Absolute 0.44(L) 1.00 - 5.00 K/[facility] LAB HEMETOLOGY METHOD 06/15/2025 7:34 AM EDT [facility] Monocytes Absolute 0.19(L) 0.20 - 1.00 K/mcL LAB HEMETOLOGY METHOD 06/15/2025 7:34 AM EDT [facility] Eosinophils Absolute 0.00 0.00 - 0.50 K/[facility] LAB HEMETOLOGY METHOD 06/15/2025 7:34 AM EDT [facility] Basophils Absolute 0.01 0.00 - 0.20 K/[facility] LAB HEMETOLOGY METHOD 06/15/2025 7:34 AM EDT [facility] Immature Granulocytes Absolute 0.04(H) 0.00 - 0.03 K/mcL LAB HEMETOLOGY METHOD 06/15/2025 7:34 AM EDT [facility] Blood Venous blood specimen / Unknown Venipuncture / Unknown 06/15/2025 7:05 AM EDT 06/15/2025 7:21 AM EDT us Rich Dia MD LAB BLOOD ORDERABLES Final Result [facility] [address] [place] [address], * (ABNORMAL) CBC - Every 3 Days (06/15/2025 7:05 AM EDT) WBC 6.8 4.8 - 10.8 K/mcL LAB HEMETOLOGY METHOD 06/15/2025 7:34 AM EDT [facility] RBC 3.70(L) 4.50 - 5.50 M/mcL LAB HEMETOLOGY METHOD 06/15/2025 7:34 AM EDT [facility] Hemoglobin 10.7(L) 13.5 - 17.5 g/dL LAB HEMETOLOGY METHOD 06/15/2025 7:34 AM EDT [facility] Hematocrit 32.5(L) 42.0 - 54.0 % LAB HEMETOLOGY METHOD 06/15/2025 7:34 AM T [facility] MCV 89.0 79.0 - 98.0 FL LAB HEMETOLOGY METHOD 06/15/2025 7:34 AM EDT [facility] MCH 29.3 27.0 - 32.0 pcg LAB HEMETOLOGY METHOD 06/15/2025 7:34 AM EDT [facility] MCHC 32.9 32.0 - 37.0 g/dL LAB HEMETOLOGY METHOD [facility]2025 [facility] RDW 13.5 11.0 - 15.0 % LAB HEMETOLOGY METHOD 06/15/2025 7:[address] [facility] Platelets 163 130 - 400 K/mcL LAB HEMETOLOGY METHOD 06/15/2025 7:[address] [facility] MPV 12.0(H) 7.0 - 11.0 FL LAB HEMETOLOGY METHOD 06/15/2025 7:[address] [facility] NRBC 0.0 <1.0 % LAB HEMETOLOGY METHOD 06/15/2025 7:34 AM EDT [facility] NRBC Absolute 0.00 <0.10 K/mcL LAB HEMETOLOGY METHOD 06/15/2025 7:[address] [facility] Blood Venous blood specimen / Unknown Venipuncture / Unknown 06/15/2025 7:05 AM EDT 06/15/2025 7:21 AM EDT us Bharti Garcia [employer] LAB BLOOD ORDERABLES Final Res ult [facility] [address] [place] [address], [place] [phone] * (ABNORMAL) Lipid panel with reflex to direct LDL (06/15/2025 7:05 AM EDT) [facility] Cholesterol 80 0 - 200 mg/dL LAB CHEMISTRY METHOD 06/15/2025 8:41 AM T [facility] Triglycerides 106 0 - 150 mg/dL LAB CHEMISTRY METHOD 06/15/2025 8:[address] [facility] HDL 14(L) >=40 mg/dL LAB CHEMISTRY METHOD 06/15/2025 8:[address] [facility] LDL Calculated 45 0 - 100 mg/dL LAB CHEMISTRY METHOD 06/15/2025 8:[address] [facility] Comment:Estimated LDL Calcul ated using equation: Total cholesterol - HDL cholesterol - (Triglycerides/5) VLDL Cholesterol Baltazar 21.2 mg/dL LAB CHEMISTRY METHOD 06/15/2025 8:[address] [facility] Non HDL Chol. (LDL+VLDL) 66 <145 mg/dL LAB CHEMISTRY METHOD 06/15/2025 8:[address] [facility] Chol/HDL Ratio 5.7(H) 0.0 - 4.4 LAB CHEMISTRY METHOD 06/15/2025 8:[address] [facility] Blood Venous blood specimen / Unknown Venipuncture / Unknown 06/15/2025 7:05 AM EDT 06/15/2025 7:20 AM EDT us Bharti Garcia [employer] LAB BLOOD ORDERABLES Final Res ult [facility] [address] [place] [address], [place] [phone] * (ABNORMAL) Troponin I high sensitivity (06/15/2025 7:05 AM EDT) [facility] High Sensitivity Troponin I 95(H) <=79 ng/L LAB CHEMISTRY METHOD 06/15/2025 8:[address] [facility] Blood Venous blood specimen / Unknown Venipuncture / Unknown 06/15/2025 7:05 AM EDT 06/15/2025 7:20 AM EDT [facility] - 06/15/2025 8:47 AM EDT High levels of biotin in samples may falsely decrease hsTroponin values. Use caution when interpreting hsTroponin results in patients taking biotin who exhibit renal impairment (eGFR <60) or in patients taking more than 20 mg/day of biotin. us Rich Dia MD LAB BLOOD ORDERABLES Final Result [facility] [address] [place] [address], [place] [phone] * (ABNORMAL) Basic metabolic panel (06/15/2025 7:05 AM EDT) Sodium 138 133 - 145 mmol/L LAB CHEMISTRY METHOD 06/15/2025 8:[address] [facility] Potassium 4.2 3.5 - 5.5 mmol/L LAB CHEMISTRY METHOD 06/15/2025 8:[address] [facility] Chloride 105 96 - 110 mmol/L LAB CHEMISTRY METHOD 06/15/2025 8:[address] [facility] CO2 24 21 - 32 mmol/L LAB CHEMISTRY METHOD 06/15/2025 8:[address] [facility] Anion Gap 9 3 - 11 LAB CHEMISTRY METHOD 06/15/2025 8:[address] [facility] Glucose 160(H) 70 - 100 mg/dL LAB CHEMISTRY METHOD 06/15/2025 8:[address] [facility] BUN 55(H) 5 - 25 mg/dL LAB CHEMISTRY METHOD 06/15/2025 8:[address] [facility] Creatinine 3.01(H) 0.70 - 1.30 mg/dL LAB CHEMISTRY METHOD 06/15/2025 8:41 AM EDT [facility] eGFR 21(L) >=60 mL/min/1. 73m2 LAB CHEMISTRY METHOD 06/15/2025 8:41 AM EDT [facility] Comment:Calculation based on the Chronic Kidney Disease Epidemiology Collaboration (CKD-EPI) equation refit without adjustment for race. BUN/Creatinine Ratio 18.3 LAB CHEMISTRY METHOD 06/15/2025 8:41 AM EDT [facility] Calcium 8.6 8.5 - 10.5 mg/dL LAB CHEMISTRY METHOD 06/15/2025 8:41 AM EDT [facility] Blood Venous blood specimen / Unknown Venipuncture / Unknown 06/15/2025 7:05 AM EDT 06/15/2025 7:20 AM EDT Rich Dia MD LAB BLOOD ORDERABLES Final Result [facility] [address] [place] [address], * ECG-Annotated (06/15/2025) us Provider Onbase ECG ORDERABLES Final Result * Vascular US duplex carotid bilateral (06/14/2025 9:38 PM EDT) Anatomical Region Laterality Modality Vascular, Abdomen Ultrasound 06/15/2025 9:19 AM EDT Impressions 06/15/2025 9:21 AM EDT No evidence of hemodynamically significant stenosis. -------- FINAL REPORT -------- Dictated By: Yonis Burris Dictated Date: 06/15/2025 09:19 ET Assigned Physician: Yonis Burris Reviewed and Electronically Signed By: Yonis Burris Signed Date: 06/15/2025 09:21 ET Workstation ID: [id number] Transcribed By: Self Edit Transcribed Date: 06/15/2025 09:19 ET Narrative 06/15/2025 9:21 AM EDT INDICATION: Stroke, follow-up FINDINGS: Duplex and color images are obtained of the extracranial carotid arterial systems bilaterally. No prior studies are available for comparison. Mild atherosclerotic plaque noted along the carotid bulb bilaterally. Normal velocities and waveforms noted bilaterally. Mildly elevated right greater than left external carotid artery velocities. There are normal end diastolic velocities bilaterally with antegrade flow in both vertebral arteries. Procedure Note Yonis Burris MD - 06/15/2025 INDICATION: Stroke, follow-up FINDINGS: Duplex and color images are obtained of the extracranial carotidarterial systems bilaterally. No prior studies are available forcomparison. Mild atherosclerotic plaque noted along the carotid bulb bilaterally.Normal velocities and waveforms noted bilaterally. Mildly elevated rightgreater than left external carotid artery velocities. There are normal end diastolic velocities bilaterally with antegrade flowin both vertebral arteries. IMPRESSION: No evidence of hemodynamically significant stenosis. -------- FINAL REPORT -------- Dictated By: Yonis Burris Dictated Date: 06/15/2025 09:19 ET Assigned Physician: Yonis Burris Reviewed and Electronically Signed By: Yonis Burris Signed Date: 06/15/2025 09:21 ET Workstation ID: [id number] Transcribed By: Self Edit Transcribed Date: 06/15/2025 09:19 ET us Bharti Garcia [employer] CV VASCULAR PROCEDURES Final R esult * US Retroperitoneal Complete (06/14/2025 9:38 PM EDT) Anatomical Region Laterality Modality Body Ultrasound 06/15/2025 9:21 AM EDT Impressions 06/15/2025 9:23 AM EDT Normal renal ultrasound. -------- FINAL REPORT -------- Dictated By: Yonis Burris Dictated Date: 06/15/2025 09:21 ET Assigned Physician: Yonis Burris Reviewed and Electronically Signed By: Yonis Burris Signed Date: 06/15/2025 09:23 ET Workstation ID: [id number] Transcribed By: Self Edit Transcribed Date: 06/15/2025 09:21 ET Narrative 06/15/2025 9:23 AM EDT INDICATION: Renal failure, acute FINDINGS: Renal ultrasound obtained. No prior studies available for comparison. Right kidney: Normal in size, shape and echogenicity. No nephrolithiasis or hydronephrosis. Left kidney: Normal in size, shape and echogenicity. No nephrolithiasis or hydronephrosis. Bladder: Not visualized ureteral jets. Procedure Note Yonis Burris MD - 06/15/2025 INDICATION: Renal failure, acute FINDINGS: Renal ultrasound obtained. No prior studies available forcomparison. Right kidney: Normal in size, shape and echogenicity. No nephrolithiasisor hydronephrosis. Left kidney: Normal in size, shape and echogenicity. No nephrolithiasis orhydronephrosis. Bladder: Not visualized ureteral jets. IMPRESSION: Normal renal ultrasound. -------- FINAL REPORT -------- Dictated By: Yonis Burris Dictated Date: 06/15/2025 09:21 ET Assigned Physician: Yonis Burris Reviewed and Electronically Signed By: Yonis Burris Signed Date: 06/15/2025 09:23 ET Workstation ID: [id number] Transcribed By: Self Edit Transcribed Date: 06/15/2025 09:21 ET us Bharti Garcia [employer] IMG US PROCEDURES Final Result * MR Brain wo Contrast (06/14/2025 5:20 PM EDT) Anatomical Region Laterality Modality Head and Neck Magnetic Resonan ce 06/14/2025 6:22 PM EDT Impressions 06/14/2025 6:22 PM EDT Chronic changes without acute infarcts. This document has been electronically signed by: Jayme Cowart MD on 06/14/2025 18:22:10 Narrative 06/14/2025 6:22 PM EDT INDICATION: Stroke, follow up MR Brain without gadolinium Comparison: CT - CT HEAD WO CONTRAST - 06/14/25 01:52 EDT Findings: Microhemorrhage/mineralization along the left dorsal aspect of the erica/superior cerebellum Scattered T2/FLAIR hyperintensities throughout the subcortical and periventricular white matter, likely in keeping with chronic small vessel ischemic disease. Parenchymal volume loss with compensatory prominence of the ventricles and CSF spaces. No acute infarcts, midline shift or hydrocephalus. Vascular flow voids are intact. Orbital contents are unremarkable. The sinuses and mastoid air cells are clear. No focal bone lesion. Procedure Note Jayme Cowart MD - 06/14/2025 INDICATION: Stroke, follow up MR Brain without gadolinium Comparison: CT - CT HEAD WO CONTRAST - 06/14/25 01:52 EDT Findings: Microhemorrhage/mineralization along the left dorsal aspect of the erica/superior cerebellum Scattered T2/FLAIR hyperintensities throughout the subcortical and periventricular white matter, likely in keeping with chronic small vessel ischemic disease. Parenchymal volume loss with compensatory prominence of the ventricles and CSF spaces. No acute infarcts, midline shift or hydrocephalus. Vascular flow voids are intact. Orbital contents are unremarkable. The sinuses and mastoid air cells are clear. No focal bone lesion. IMPRESSION: Chronic changes without acute infarcts. This document has been electronically signed by: Jayme Cowart MD on 06/14/2025 18:22:10 Bharti Garcia NP IM MRI PROCEDURES Final Resul t * CT Chest/Abdomen/Pelvis wo Contrast (06/14/2025 2:50 PM EDT) Anatomical Region Laterality Modality Body Computed Tomogra phy 06/14/2025 4:07 PM EDT Impressions 06/14/2025 4:12 PM EDT 1. Severe emphysematous changes. Presumed atelectasis at the right greater than left lung bases. 2. There is thickening at the GE junction. Correlate with endoscopy. 3. Bilateral perinephric stranding nonspecific. Pyelonephritis not excluded. 4. Circumferential thickening of the bladder, correlate with urinalysis. 5. 1.5 cm right adrenal nodule. Recommend nonemergent adrenal protocol CT or MRI. -------- FINAL REPORT -------- Dictated By: Vincent Krishnamurthy Dictated Date: 06/14/2025 16:07 ET Assigned Physician: Vincent Krishnamurthy Reviewed and Electronically Signed By: Vincent Krishnamurthy Signed Date: 06/14/2025 16:12 ET Workstation ID: [id number] Transcribed By: Self Edit Transcribed Date: 06/14/2025 16:07 ET Narrative 06/14/2025 4:[address] CHEST, ABDOMEN AND PELVIS WITHOUT CONTRAST INDICATION: Respiratory failure TECHNIQUE: Chest, abdomen and pelvis CT without contrast. Multiplanar reformats were created and interpreted. The examination was performed utilizing dose reduction techniques. Total DLP: 978 mGy/cm COMPARISON: No priors available. FINDINGS: CT CHEST: LUNGS/PLEURA: Central airways are patent. Lungs are clear. Severe emphysematous changes. Presumed atelectasis at the right greater than left lung bases. No pleural effusion or pneumothorax. MEDIASTINUM: Thyroid gland is unremarkable. No mediastinal or hilar lymphadenopathy. Cardiac chambers are normal in size. No pericardial effusion. Esophagus is normal. CHEST WALL: No axillary lymphadenopathy or mass. Gynecomastia. CT ABDOMEN AND PELVIS: HEPATOBILIARY: No focal liver lesions. No cholelithiasis or biliary duct dilatation. SPLEEN: no focal lesion PANCREAS: No focal mass or ductal dilatation. ADRENALS: 1.5 cm right adrenal nodule. KIDNEYS/URETERS: Upper dense upper pole left renal cyst. Bilateral perinephric stranding nonspecific. Pyelonephritis not excluded PELVIC ORGANS/BLADDER: Circumferential thickening of the bladder, correlate with urinalysis. Prostatectomy. Penile prosthesis. PERITONEUM / RETROPERITONEUM: Trace free fluid in the pelvis. VESSELS: Scattered atherosclerotic calcifications throughout the aorta and its major branches. No aneurysm. GI TRACT: No bowel distention or wall thickening. Normal appendix. There is thickening at the GE junction. BONES AND SOFT TISSUES: Scattered degenerative changes seen throughout the bones. Anterolisthesis of L4 and L5. Multilevel spinal stenosis and neuroforaminal narrowing. No acute fracture. Soft tissues are unremarkable. Procedure Note Vincent Krishnamurthy MD - 06/14/2025 CT CHEST, ABDOMEN AND PELVIS WITHOUT CONTRAST INDICATION: Respiratory failure TECHNIQUE: Chest, abdomen and pelvis CT without contrast. Multiplanarreformats were created and interpreted. The examination was performedutilizing dose reduction techniques. Total DLP: 978 mGy/cm COMPARISON: No priors available. FINDINGS: CT CHEST: LUNGS/PLEURA: Central airways are patent. Lungs are clear. Severeemphysematous changes. Presumed atelectasis at the right greater thanleft lung bases. No pleural effusion or pneumothorax. MEDIASTINUM: Thyroid gland is unremarkable. No mediastinal or hilarlymphadenopathy. Cardiac chambers are normal in size. No pericardialeffusion. Esophagus is normal. CHEST WALL: No axillary lymphadenopathy or mass. Gynecomastia. CT ABDOMEN AND PELVIS: HEPATOBILIARY: No focal liver lesions. No cholelithiasis or biliary ductdilatation. SPLEEN: no focal lesion PANCREAS: No focal mass or ductal dilatation. ADRENALS: 1.5 cm right adrenal nodule. KIDNEYS/URETERS: Upper dense upper pole left renal cyst. Bilateralperinephric stranding nonspecific. Pyelonephritis not excluded PELVIC ORGANS/BLADDER: Circumferential thickening of the bladder,correlate with urinalysis. Prostatectomy. Penile prosthesis. PERITONEUM / RETROPERITONEUM: Trace free fluid in the pelvis. VESSELS: Scattered atherosclerotic calcifications throughout the aorta andits major branches. No aneurysm. GI TRACT: No bowel distention or wall thickening. Normal appendix. Thereis thickening at the GE junction. BONES AND SOFT TISSUES: Scattered degenerative changes seen throughout thebones. Anterolisthesis of L4 and L5. Multilevel spinal stenosis andneuroforaminal narrowing. No acute fracture. Soft tissues areunremarkable. IMPRESSION: 1. Severe emphysematous changes. Presumed atelectasis at the rightgreater than left lung bases. 2. There is thickening at the GE junction. Correlate with endoscopy. 3. Bilateral perinephric stranding nonspecific. Pyelonephritis notexcluded. 4. Circumferential thickening of the bladder, correlate withurinalysis. 5. 1.5 cm right adrenal nodule. Recommend nonemergent adrenal protocol CTor MRI. -------- FINAL REPORT -------- Dictated By: Vincent Krishnamurthy Dictated Date: 06/14/2025 16:07 ET Assigned Physician: Vincent Krishnamurthy Reviewed and Electronically Signed By: Vincent Krishnamurthy Signed Date: 06/14/2025 16:12 ET Workstation ID: [id number] Transcribed By: Self Edit Transcribed Date: 06/14/2025 16:07 ET Bharti Garcia [employer] IMG CT PROCEDURES Final Result * (ABNORMAL) Arterial blood gas (06/14/2025 11:59 AM EDT) pH, Arterial 7.47(H) 7.35 - 7.45 pH 06/14/2025 12:16 PM EDT [facility] pCO2, Arterial 29(L) 35 - 45 mmHg 06/14/2025 12:16 PM EDT [facility] pO2, Arterial 88 80 - 100 mmHg 06/14/2025 12:16 PM EDT [facility] HCO3, Arterial 23.6 22.0 - 26.0 mmol/L 06/14/2025 12:16 PM EDT [facility] O2 Sat, Arterial 97.6 95.0 - 98.0 % 06/14/2025 12:16 PM EDT [facility] Base Excess, Arterial -1.6 -2.0 - 2.0 mmol/L 06/14/2025 12:16 PM EDT [facility] David Test Pass Pass, Unresponsi ve, Line 06/14/2025 12:16 PM EDT [facility] FIO2 40.00 06/14/2025 12:16 PM EDT [facility] Blood Arterial blood specimen / Unknown Arterial Puncture / Unknown 06/14/2025 11:59 AM EDT 06/14/2025 12:04 PM EDT Jaspreet Ledesma MD LAB BLOOD ORDERABLES Final Resul t [facility] [address] [place] [address], * XR Chest 1 View (06/14/2025 11:32 AM EDT) Anatomical Region Laterality Modality Body Radiographic Angy ging 06/14/2025 11:3 4 AM EDT Impressions 06/14/2025 11:37 AM EDT Possible mild bibasilar atelectasis. -------- FINAL REPORT -------- Dictated By: Yonis Burris Dictated Date: 06/14/2025 11:34 ET Assigned Physician: Yonis Burris Reviewed and Electronically Signed By: Yonis Burris Signed Date: 06/14/2025 11:37 ET Workstation ID: [id number] Transcribed By: Self Edit Transcribed Date: 06/14/2025 11:34 ET Narrative 06/14/2025 11:37 AM EDT INDICATION: Shortness of breath FINDINGS: Single portable AP view of the chest obtained. Compared to multiple prior studies most recent from June 15, 2025. Multiple overlying EKG leads and wires. Increased bronchovascular markings in the lung bases may be part secondary to technique and/or mild atelectasis. No pneumothorax, pneumomediastinum or pleural effusion. Heart normal in size and shape. Bony structures are grossly intact and normal for the patient's age. Procedure Note Yonis Burris MD - 06/14/2025 INDICATION: Shortness of breath FINDINGS: Single portable AP view of the chest obtained. Compared tomultiple prior studies most recent from June 15, 2025. Multiple overlying EKG leads and wires. Increased bronchovascular markings in the lung bases may be part secondaryto technique and/or mild atelectasis. No pneumothorax, pneumomediastinumor pleural effusion. Heart normal in size and shape. Bony structures are grossly intact and normal for the patient's age. IMPRESSION: Possible mild bibasilar atelectasis. -------- FINAL REPORT -------- Dictated By: Yonis Burris Dictated Date: 06/14/2025 11:34 ET Assigned Physician: Yonis Burris Reviewed and Electronically Signed By: Yonis Burris Signed Date: 06/14/2025 11:37 ET Workstation ID: [id number] Transcribed By: Self Edit Transcribed Date: 06/14/2025 11:34 ET Jaspreet Ledesma MD IMG XR PROCEDURES Final Result * (ABNORMAL) Creatine kinase and CKMB (06/14/2025 11:09 AM EDT) Total CK 365(H) 22 - 269 unit/L LAB CHEMISTRY METHOD 06/14/2025 1:12 PM EDT [facility] CK-MB 1.8 1.0 - 3.6 ng/mL LAB CHEMISTRY METHOD 06/14/2025 1:12 PM EDT [facility] CK-MB Index 0.0 0.0 - 5.0 LAB CHEMISTRY METHOD 06/14/2025 1:12 PM EDT [facility] Blood Venous blood specimen / Unknown Venipuncture / Unknown 06/14/2025 11:09 AM EDT 06/14/2025 11:16 AM EDT Bharti Radha SLIVER FORMER LAB BLOOD ORDERABLES Final Res ult Performing Organization Address [facility] de Phone Number [facility] [address] [place] [address], [place] [phone] * (ABNORMAL) Troponin I high sensitivity (06/14/2025 11:09 AM EDT) [facility] High Sensitivity Troponin I 134(HH) <=79 ng/L LAB CHEMISTRY METHOD 06/14/2025 12:19 PM EDT [facility] Blood Venous blood specimen / Unknown Venipuncture / Unknown 06/14/2025 11:09 AM EDT 06/14/2025 11:16 AM EDT Narrative [facility] - 06/14/2025 12:19 PM EDT High levels of biotin in samples may falsely decrease hsTroponin values. Use caution when interpreting hsTroponin results in patients taking biotin who exhibit renal impairment (eGFR <60) or in patients taking more than 20 mg/day of biotin. Bharti Radha SLIVER FORMER LAB BLOOD ORDERABLES Final Res ult Performing Organization Address [facility]/ZIP Co de Phone Number [facility] [address] [place] [address], [place] [phone] * Lavender tube (06/14/2025 11:05 AM EDT) Extra Tube Hold for add-ons. 06/14/2025 1:01 PM EDT [facility] Comment:Auto resulted. Blood Venous blood specimen / Unknown 06/14/2025 11:05 AM EDT 06/14/2025 11:17 AM EDT us Jaspreet Ledesma MD LAB BLOOD ORDERABLES Final Resul t [facility] [address] [place] [address], [place] [phone] * (ABNORMAL) TRANSTHORACIC ECHOCARDIOGRAM (TTE) COMPLETE W/ CONTRAST (06/14/2025 10:56 AM EDT) Pathologist [facility] Left Atrium Minor Ohlman 5.3 cm CV PACS Left Atrium Major Ohlman 6.0 cm CV PACS LA Area Sys (A2C) 17 cm2 CV PACS LA Area Sys (A4C) 23 cm2 CV PACS LA Volume (BP) 60 mL CV PACS RA Area 13.4 cm2 CV PACS RA 2D Volume 33 mL CV PACS AV Mean Gradient 4 mmHg CV PACS Ao VTI 27.5 cm CV PACS AV Peak Josh 1.4 m/s CV PACS AV Peak Gradient 8 mmHg CV PACS AV Area Continuity Equation 2.0 cm2 CV PACS AV Area Peak Velocity 1.7 cm2 CV PACS Aortic Sinus Valsalva 3.1 cm CV PACS IVC Proximal 1.6 cm CV PACS IVSD 1.1(A) 0.6 - 1.0 cm CV PACS LVIDD 4.6 4.2 - 5.8 cm CV PACS LVIDS 3.5 2.5 - 4.0 cm CV PACS LVOT Diameter 2.0 cm CV PACS LVOT Mean Josh 0.5 m/s CV PACS LVOT Mean Grad 1 mmHg CV PACS LVOT Peak VTI 17.4 cm CV PACS LVOT Peak Josh 0.7 m/s CV PACS LVOT Peak Gradient 2 mmHg CV PACS LVPWD 1.1(A) 0.6 - 1.0 cm CV PACS MV E' Tissue Velocity Lateral 10 cm/s CV PACS MV E' Tissue Velocity Septal 7 cm/s CV PACS LVOT Area 3.1 cm2 CV PACS LVOT Stroke Volume 55 mL CV PACS MV Deceleration Davidson 9.5 m/s2 CV PACS E Wave Deceleration Time 170 119 - 242 ms CV PACS MV PHT 50 ms CV PACS MV Peak A Josh 1.21 m/s CV PACS MV Peak E Josh 1.61 m/s CV PACS MV Mean Gradient 5 mmHg CV PACS MV VTI 40.5 cm CV PACS Mitral Valve Max Velocity 1.7 m/s CV PACS MV Peak Gradient 12 mmHg CV PACS MV Area PHT 4.4 cm2 CV PACS MV Area Continuity Equation 1.3 cm2 CV PACS RV Diastolic Basal Dimension 4.0 2.5 - 4.1 cm CV PACS RV S' 11 cm/s CV PACS TAPSE 23 mm CV PACS E/E' Ratio Septal 23 CV PACS E/E' Ratio Averaged 20 CV PACS LVOT Stroke Index 28 mL/m2 CV PACS Relative Wall Thickness ratio 0.48 CV PACS LVOT:AV VTI Index 0.63 CV PACS FS 24 % CV PACS LV Mass 2D 181 g CV PACS MV VTI:LVOT VTI ratio 2.3 CV PACS LVOT flow 157 mL/s CV PACS RA 2D Volume Index 17 mL/m2 CV PACS NICOLE Index (VTI) 1.03 cm2/m2 CV PACS NICOLE Index (Pk Josh) 0.88 cm2/m2 CV PACS LVIDD Index 2.38 cm/m2 CV PACS LVIDS Index 1.81 cm/m2 CV PACS AV Velocity Ratio 0.50 CV PACS E/A Ratio 1.3 CV PACS E/E' Ratio Lateral 16 CV PACS LA Volume Index (BP) 31 mL/m2 CV PACS LV Mass Index 2D 94 g/m2 CV PACS BSA 1.95 m2 CV PACS Est. RA Pressure 3 mmHg CV PACS Anatomical Region Laterality Modality Ultrasound Narrative 06/14/2025 12:44 PM EDT Left Ventricle: Left ventricle cavity size is normal. There is mild concentric hypertrophy. Systolic function is normal with an ejection fraction of 55-60%. Small basilar to mid inferior hypokinetic regional LV wall motion abnormality. There is no diastolic dysfunction. Left Atrium: Left atrium cavity size is normal. Right Ventricle: Right ventricle cavity appears normal. Systolic function is normal. Right Atrium: Right atrium cavity is normal. Mitral Valve: There is mild stenosis with a mean gradient of 5 mmHg at 82 bpm. Aortic Valve: There is no regurgitation or stenosis. Left Ventricle Left ventricle cavity size is normal. There is mild concentric hypertrophy. Systolic function is normal with an ejection fraction of 55-60%. Small basilar to mid inferior hypokinetic regional LV wall motion abnormality. There is no diastolic dysfunction. Right Ventricle Right ventricle cavity appears normal. Systolic function is normal. Left Atrium Left atrium cavity size is normal. Right Atrium Right atrium cavity is normal. IVC/SVC RA pressures is estimated to be 3 mmHg (IVC diameter <21 mm and decreases >50% during inspiration). Mitral Valve The leaflets are mildly thickened. There is annular calcification. There is mild regurgitation. There is mild stenosis with a mean gradient of 5 mmHg at 82 bpm. Tricuspid Valve Tricuspid valve structure is normal. Tricuspid regurgitation is inadequate for estimation of right ventricular systolic pressure. There is no evidence of tricuspid valve stenosis. Aortic Valve Aortic valve opens normally. Number of aortic valve cusps cannot be determined. There is no regurgitation or stenosis. Pulmonic Valve The pulmonic valve was not well visualized. There is no regurgitation or stenosis. Ascending Aorta Normal aortic sinus. Ascending and transverse aorta not well visualized. Pericardium There is an anterior fat pad. There is no pericardial effusion. Study Details Overall the study quality was technically difficult. Study was difficult due to: procedure performed with the patient in a supine position. Bharti Garcia NP CV ECHO PROCEDURES Final Resul t * ECG 12 lead (06/14/2025 4:46 AM EDT) Ventricular Rate ECG 62 BPM GEMUSE Atrial Rate 62 BPM GEMUSE P-R Interval 144 ms GEMUSE QRS Duration 92 ms GEMUSE Q-T Interval 472 ms GEMUSE QTc 479 ms GEMUSE P Wave Ohlman 60 degrees GEMUSE R Ohlman -22 degrees GEMUSE T Ohlman -10 degrees GEMUSE ECG Interpretation Normal sinus rhythm Nonspecific ST and T wave abnormality Abnormal ECG When compared with ECG of 14-JUN-2025 03:18, (unconfirmed) No significant change was found Confirmed by TOM KIM ([id number]) on 06/15/2025 11:28:32 AM GEMUSE 06/14/2025 4:46 AM EDT 06/15/2025 11:28 AM EDT us Hung Mujica MD ECG ORDERABLES Final Resu lt Performing Organization Address [facility] de Phone Number G[facility] * (ABNORMAL) Troponin I high sensitivity (06/14/2025 3:44 AM EDT) [facility] High Sensitivity Troponin I 125(HH) <=79 ng/L LAB CHEMISTRY METHOD 06/14/2025 4:38 AM EDT [facility] Blood Venous blood specimen / Unknown Venipuncture / Unknown 06/14/2025 3:44 AM EDT 06/14/2025 3:50 AM EDT Narrative [facility] - 06/14/2025 4:38 AM EDT High levels of biotin in samples may falsely decrease hsTroponin values. Use caution when interpreting hsTroponin results in patients taking biotin who exhibit renal impairment (eGFR <60) or in patients taking more than 20 mg/day of biotin. us Hung Mujica MD LAB BLOOD ORDERABLES Final Result Performing Organization Address [facility] Co de Phone Number [facility] [address] [place] [address], [place] [phone] * Respiratory virus panel molecular study (06/14/2025 3:44 AM EDT) [facility] Adenovirus Detection by PCR Not Detected Not Detected LAB MICROBIOLOGY METHOD 06/14/2025 4:42 AM EDT [facility] Influenza A PCR Not Detected Not Detected LAB MICROBIOLOGY METHOD 06/14/2025 4:42 AM EDT [facility] Influenza B PCR Not Detected Not Detected LAB MICROBIOLOGY METHOD 06/14/2025 4:42 AM EDT [facility] Coronavirus 229E Not Detected Not Detected LAB MICROBIOLOGY METHOD 06/14/2025 4:42 AM EDT [facility] Coronavirus HKU1 Not Detected Not Detected LAB MICROBIOLOGY METHOD 06/14/2025 4:42 AM EDT [facility] Coronavirus OC43 Not Detected Not Detected LAB MICROBIOLOGY METHOD 06/14/2025 4:42 AM EDT [facility] Coronavirus NL63 Not Detected Not Detected LAB MICROBIOLOGY METHOD 06/14/2025 4:42 AM EDT [facility] Parainfluenza Virus 1 Not Detected Not Detected LAB MICROBIOLOGY METHOD 06/14/2025 4:42 AM EDT [facility] Parainfluenza Virus 2 Not Detected Not Detected LAB MICROBIOLOGY METHOD 06/14/2025 4:42 AM EDT [facility] Parainfluenza Virus 3 Not Detected Not Detected LAB MICROBIOLOGY METHOD 06/14/2025 4:42 AM EDT [facility] Parainfluenza Virus 4 Not Detected Not Detected LAB MICROBIOLOGY METHOD 06/14/2025 4:42 AM EDT [facility] RSV PCR Not Detected Not Detected LAB MICROBIOLOGY METHOD 06/14/2025 4:42 AM EDT [facility] Human Metapneumovirus A and B Not Detected Not Detected LAB MICROBIOLOGY METHOD 06/14/2025 4:42 AM EDT [facility] Rhinovirus/Entero virus Not Detected Not Detected LAB MICROBIOLOGY METHOD 06/14/2025 4:42 AM EDT [facility] Bordetella pertussis Not Detected Not Detected LAB MICROBIOLOGY METHOD 06/14/2025 4:42 AM EDT [facility] Bordetella parapertussis Not Detected Not Detected LAB MICROBIOLOGY METHOD 06/14/2025 4:42 AM EDT [facility] Mycoplasma pneumo by PCR Not Detected Not Detected LAB MICROBIOLOGY METHOD 06/14/2025 4:42 AM EDT [facility] Chlamydia pneumoniae Not Detected Not Detected LAB MICROBIOLOGY METHOD 06/14/2025 4:42 AM EDT [facility] SARS COV-2 Not Detected Not Detected LAB MICROBIOLOGY METHOD 06/14/2025 4:42 AM EDT [facility] Swab Both anterior nares / Unknown Non-blood Collection / Unknown 06/14/2025 3:44 AM EDT 06/14/2025 3:50 AM EDT Narrative [facility] - 06/14/2025 4:42 AM EDT Testing was performed using the [employer] Respiratory Pathogen PCR Assay. All results must be correlated with the clinical findings. Results should not be used as the sole basis for diagnosis. False Negative results may occur from the presence of sequence variants in the region targeted by the assay or the presence of inhibitors. Results may be affected by concurrent antiviral/antimicrobial therapy or levels of organisms that are below the limit of detection. Hung Mujica MD LAB MICROBIOLOGY - GENERAL ORDERABLES Final Result [facility] [address] [place] [address], * (ABNORMAL) Culture urine (06/14/2025 3:39 AM EDT) Culture, Urine >=100,000 CFU/mL Escherichia coli(A) MACIE 06/16/2025 11:02 AM EDT [facility] Urine Urine specimen obtained by clean catch procedure / Unknown Non-blood Collection / Unknown 06/14/2025 3:39 AM EDT 06/14/2025 4:21 AM EDT Narrative Organism Antibiotic Method Susceptibility Escherichia coli Amoxicillin/Clavulanate MACIE <=2 ug/ml: Susceptible Escherichia coli Ampicillin/Sulbactam MACIE <=2 ug/ml: Susceptible Escherichia coli Piperacillin/Tazobactam MACIE <=4 ug/ml: Susceptible Escherichia coli Cefazolin (Urine) MACIE <=1 ug/ml: Susceptible Escherichia coli Cefoxitin MACIE <=4 ug/ml: Susceptible Escherichia coli Ceftazidime MACIE <=0.5 ug/ml: Susceptible Escherichia coli Ceftriaxone MACIE <=0.25 ug/ml: Susceptible Escherichia coli Cefepime MACIE <=0.12 ug/ml: Susceptible Escherichia coli Meropenem MACIE <=0.25 ug/ml: Susceptible Escherichia coli Amikacin MACIE 2 ug/ml: Susceptible Escherichia coli Gentamicin MACIE <=1 ug/ml: Susceptible Escherichia coli Ciprofloxacin MACIE <=0.06 ug/ml: Susceptible Escherichia coli Levofloxacin MACIE <=0.12 ug/ml: Susceptible Escherichia coli Nitrofurantoin MACIE <=16 ug/ml: Susceptible Escherichia coli Trimethoprim/Sulfamethoxazole MACIE <=20 ug/ml: Susceptible Vickie GARCES LAB MICROBIOLOGY - GENERAL O RDERABLES Final Result Performing Organization Address City/[facility]/ZIP Co de Phone Number [facility] [address] [place] [address], [place] [phone] * [place] urine culture tube (06/14/2025 3:39 AM EDT) Pathologist [facility] Extra Tube Hold for add-ons. 06/14/2025 5:01 AM EDT [facility] Comment:Auto resulted. Urine Urine specimen obtained by clean catch procedure / Unknown Non-blood Collection / Unknown 06/14/2025 3:39 AM EDT 06/14/2025 3:50 AM EDT Vickie GARCES LAB URINE ORDERABLES Final R esult Performing Organization Address [facility]/ZIP Co de Phone Number [facility] [address] [place] [address], [place] [phone] * (ABNORMAL) Urinalysis with reflex microscopic and culture (06/14/2025 3:39 AM EDT) Pathologist [facility] Specific [place] Urine 1.021 1.003 - 1.030 LAB URINALYSIS - AUTOMATED METHOD 06/14/2025 4:[address] [facility] pH, Urine 5.5 5.0 - 8.0 pH LAB URINALYSIS - AUTOMATED METHOD 06/14/2025 4:[address] [facility] Leukocytes, Urine Moderate(A) Negative LAB URINALYSIS - AUTOMATED METHOD 06/14/2025 4:[address] [facility] Nitrite, Urine Negative Negative LAB URINALYSIS - AUTOMATED METHOD 06/14/2025 4:[address] [facility] Protein, Urine 300(A) <=Trace mg/dL LAB URINALYSIS - AUTOMATED METHOD 06/14/2025 4:[address] [facility] Glucose, Urine Negative Negative mg/dL LAB URINALYSIS - AUTOMATED METHOD 06/14/2025 4:[address] [facility] Ketones, Urine Trace(A) Negative mg/dL LAB URINALYSIS - AUTOMATED METHOD 06/14/2025 4:[address] [facility] Urobilinogen , Urine 1.0 0.2 - 1.0 mg/dL LAB URINALYSIS - AUTOMATED METHOD 06/14/2025 4:[address] [facility] Bilirubin, Urine Negative Negative LAB URINALYSIS - AUTOMATED METHOD 06/14/2025 4:[address] [facility] Blood, Urine Moderate(A) Negative LAB URINALYSIS - AUTOMATED METHOD 06/14/2025 4:[address] [facility] RBC, Urine 15.1(H) 0 - 4 /HPF LAB URINALYSIS - AUTOMATED METHOD 06/14/2025 4:[address] [facility] WBC, Urine 50(H) 0 - 4 /HPF LAB URINALYSIS - AUTOMATED METHOD 06/14/2025 4:[address] [facility] Squamous Epithelial, Urine 75(H) 0 - 60 /LPF LAB URINALYSIS - AUTOMATED METHOD 06/14/2025 4:21 AM EDT [facility] Bacteria, Urine Negative Negative /HPF LAB URINALYSIS - AUTOMATED METHOD 06/14/2025 4:21 AM EDT [facility] Hyaline Casts, Urine 2 0 - 3 /LPF LAB URINALYSIS - AUTOMATED METHOD 06/14/2025 4:21 AM EDT [facility] Urine Urine specimen obtained by clean catch procedure / Unknown Non-blood Collection / Unknown 06/14/2025 3:39 AM EDT 06/14/2025 3:50 AM EDT Vickie GARCES LAB URINE ORDERABLES Final R esult [facility] [address] [place] [address], [place] [phone] * ECG 12 lead (06/14/2025 3:18 AM EDT) Ventricular Rate ECG 66 BPM GEMUSE Atrial Rate 66 BPM GEMUSE P-R Interval 150 ms GEMUSE QRS Duration 92 ms GEMUSE Q-T Interval 434 ms GEMUSE QTc 454 ms GEMUSE P Wave Ohlman 2 degrees GEMUSE R Ohlman -14 degrees GEMUSE T Ohlman -3 degrees GEMUSE ECG Interpretation Normal sinus rhythm Nonspecific T wave abnormality Abnormal ECG When compared with ECG of 14-JUN-2025 01:21, (unconfirmed) Premature ventricular complexes are no longer Present Confirmed by TOM KIM ([id number]) on 06/15/2025 11:26:26 AM GEMUSE 06/14/2025 3:18 AM EDT 06/15/2025 11:26 AM EDT Vickie GARCES ECG ORDERABLES Final Result GEM[facility] * CT Head wo Contrast (06/14/2025 2:17 AM EDT) Anatomical Region Laterality Modality Head and Neck Computed Tomogra phy 06/14/2025 2:42 AM EDT Impressions 06/14/2025 2:42 AM EDT No acute intracranial findings. Chronic changes as described. This document has been electronically signed by: Avni Forbes MD on 06/14/2025 02:42:21 Narrative 06/14/2025 2:42 AM EDT INDICATION: Head trauma, mod-severe CT head without contrast Comparison: None provided Findings: No intracranial mass, midline shift, hydrocephalus, or acute hemorrhage. Nonspecific scattered white matter changes, most likely reflective of chronic small vessel ischemic changes in patient of this age. No significant mastoid effusion. No air fluid levels in paranasal sinuses. No acute fracture. Procedure Note Avni Forbes MD - 06/14/2025 INDICATION: Head trauma, mod-severe CT head without contrast Comparison: None provided Findings: No intracranial mass, midline shift, hydrocephalus, or acute hemorrhage. Nonspecific scattered white matter changes, most likely reflective of chronic small vessel ischemic changes in patient of this age. No significant mastoid effusion. No air fluid levels in paranasal sinuses. No acute fracture. IMPRESSION: No acute intracranial findings. Chronic changes as described. This document has been electronically signed by: Avni Forbes MD on 06/14/2025 02:42:[address] PROCEDURES Final Resu lt * (ABNORMAL) Blood Culture, Peripheral Draw #1 (06/14/2025 1:44 AM EDT) [facility] Culture, Blood Escherichia coli(AA) MACIE 06/16/2025 8:23 AM EDT [facility] Comment: Refer to previous culture for susceptibility ; 06/14/25 @ 0128 The organism value for this result has been updated. These results have been appended to the previously preliminary verified report. This is an edited result. Previous organism was Gram negative bacilli on 06/15/2025 at 0813 EDT. Gram Stain Result Aerobic and Anaerobic bottles Gram negative bacilli(AA) 06/16/2025 8:23 AM EDT [facility] Comment: This is an appended report. These results have been appended to a previously preliminary verified report. Corrected result: Previously reported as Anaerobic bottle Gram negative bacilli on 06/14/2025 at 1542 EDT. Blood Venous blood specimen / Unknown Venipuncture / Unknown 06/14/2025 1:44 AM EDT 06/14/2025 2:14 AM EDT Vickie GARCES LAB MICROBIOLOGY - GENERAL O RDERABLES Final Result [facility] [address] [address], * [id number], RSV, Influenza A and B qualitative RT-PCR (06/14/2025 1:44 AM EDT) Influenza A PCR Not Detected Not Detected LAB MICROBIOLOGY METHOD 06/14/2025 3:06 AM EDT [facility] Influenza B PCR Not Detected Not Detected LAB MICROBIOLOGY METHOD 06/14/2025 3:06 AM EDT [facility] RSV PCR Not Detected Not Detected LAB MICROBIOLOGY METHOD 06/14/2025 3:06 AM EDT [facility] SARS COV-2 Not Detected Not Detected LAB MICROBIOLOGY METHOD 06/14/2025 3:06 AM EDT [facility] Swab Both anterior nares / Unknown Non-blood Collection / Unknown 06/14/2025 1:44 AM EDT 06/14/2025 2:15 AM EDT Narrative [facility] - 06/14/2025 3:06 AM EDT Disclaimer: Testing was performed using the [employer] GeneXpert Xpress SARS-CoV-2 _Flu_RSV PLUS PCR assay. The manner in which this information is used to guide patient care is the responsibility of the healthcare provider. Results should be correlated with the clinical history, epidemiological data, and other data available to the clinician evaluating the patient. Negative results do not preclude infection. This test has been authorized by the FDA under an Emergency Use Authorization (EUA). This test is only authorized for the duration of time the declaration that circumstances exist justifying the authorization of the emergency use of in vitro diagnostic tests for detection of SARS-CoV-2 virus and/or diagnosis of COVID-19 infection under section 564 (b) (1) of the Act, 21 U.S.C 360bbb-3 (b) (1), unless the authorization is terminated or revoked sooner. Reference Range: Not Detected Fact sheet for Healthcare providers can be found at https://www.fda.gov/media/876591/download. Fact sheet for Healthcare patients can be found at https://www.fda.gov/media/968054/download. Vickie GARCES LAB MICROBIOLOGY - GENERAL O RDERABLES Final Result Performing Organization Address [facility]/ZIP Co de Phone Number [facility] [address] [place] [address], [place] [phone] * (ABNORMAL) Creatine kinase and CKMB (06/14/2025 1:39 AM EDT) Total CK 201 22 - 269 unit/L LAB CHEMISTRY METHOD 06/14/2025 5:57 PM EDT [facility] CK-MB <1.0(L) 1.0 - 3.6 ng/mL LAB CHEMISTRY METHOD 06/14/2025 5:57 PM EDT [facility] CK-MB Index <0.0(L) 0.0 - 5.0 LAB CHEMISTRY METHOD 06/14/2025 5:57 PM EDT [facility] Blood Venous blood specimen / Unknown Venipuncture / Unknown 06/14/2025 1:39 AM EDT 06/14/2025 2:13 AM EDT Bharti Garcia NP LAB BLOOD ORDERABLES Final Res ult Performing Organization Address [facility]/ZIP Co de Phone Number [facility] [address] [place] [address], [place] [phone] * (ABNORMAL) Procalcitonin (06/14/2025 1:39 AM EDT) Procalcitonin 10.60(H) <=0.16 ng/mL LAB CHEMISTRY METHOD 06/14/2025 9:27 AM EDT [facility] Blood Venous blood specimen / Unknown Venipuncture / Unknown 06/14/2025 1:39 AM EDT 06/14/2025 2:13 AM EDT Narrative [facility] - 06/14/2025 9:27 AM EDT Procalcitonin > 2.00 ng/ml: Procalcitonin Levels above 2.00 ng/ml, on the first day of ICU admission represent a high risk for progression to severe sepsis and/or septic shock. Procalcitonin < 0.50 ng/ml: Procalcitonin levels below 0.50 ng/ml on the first day of ICU admission represent a low risk for progression to severe sepsis and/or septic shock. Concentrations <0.5 ng/mL do not exclude an infection, on account of local ized infections (without systemic signs) which can be associated with such low concentrations, or a systemic infection in its initial stages (<6 hours). Furthermore, increased procalcitonin can occur without infection. PCT concentrations between 0.5 and 2.0 ng/mL should be interpreted taking into account the patient's history. It is recommended to retest PCT within 6-24 hours if any concentrations <2.0 ng/mL are obtained. Vickie GARCES LAB BLOOD ORDERABLES Final R esult [facility] [address] [place] [address], * (ABNORMAL) Sedimentation rate, automated (06/14/2025 1:39 AM EDT) Sed Rate 42(H) 0 - 20 mm/hr LAB HEMETOLOGY METHOD 06/14/2025 2:49 AM EDT [facility] Blood Venous blood specimen / Unknown Venipuncture / Unknown 06/14/2025 1:39 AM EDT 06/14/2025 2:13 AM EDT Vickie GARCES LAB BLOOD ORDERABLES Final R esult Performing Organization Address City/[facility]/ZIP Co de Phone Number [facility] [address] [place] [address], [place] [phone] * Lactate, with reflex (06/14/2025 1:39 AM EDT) [facility] LACTIC ACID 1.3 0.4 - 2.0 mmol/L LAB CHEMISTRY METHOD 06/14/2025 2:49 AM EDT [facility] Blood Venous blood specimen / Unknown Venipuncture / Unknown 06/14/2025 1:39 AM EDT 06/14/2025 2:10 AM EDT Vickie GARCES LAB BLOOD ORDERABLES Final R esult Performing Organization Address City/[facility]/ZIP Co de Phone Number [facility] [address] [place] [address], [place] [phone] * (ABNORMAL) CBC auto differential (06/14/2025 1:39 AM EDT) [facility] WBC 8.3 4.8 - 10.8 K/mcL LAB HEMETOLOGY METHOD 06/14/2025 2:50 AM EDT [facility] RBC 3.80(L) 4.50 - 5.50 M/[facility] LAB HEMETOLOGY METHOD 06/14/2025 2:50 AM EDT [facility] Hemoglobin 11.1(L) 13.5 - 17.5 g/dL LAB HEMETOLOGY METHOD 06/14/2025 2:50 AM EDT [facility] Hematocrit 33.9(L) 42.0 - 54.0 % LAB HEMETOLOGY METHOD 06/14/2025 2:50 AM EDT [facility] MCV 89.9 79.0 - 98.0 FL LAB HEMETOLOGY METHOD 06/14/2025 2:50 AM EDT [facility] MCH 29.4 27.0 - 32.0 pcg LAB HEMETOLOGY METHOD 06/14/2025 2:50 AM EDT [facility] MCHC 32.7 32.0 - 37.0 g/dL LAB HEMETOLOGY METHOD 06/14/2025 2:50 AM EDT [facility] RDW 13.7 11.0 - 15.0 % LAB HEMETOLOGY METHOD 06/14/2025 2:[address] [facility] Platelets 175 130 - 400 K/mcL LAB HEMETOLOGY [facility] MPV 12.1(H) 7.0 - 11.0 FL LAB HEMETOLOGY METHOD 06/14/2025 2:[address] [facility] NRBC 0.0 <1.0 % LAB HEMETOLOGY METHOD 06/14/2025 2:[address] [facility] NRBC Absolute 0.00 <0.10 K/mcL LAB HEMETOLOGY METHOD 06/14/2025 2:[address] [facility] Neutrophils Relative 79.3 % LAB HEMETOLOGY METHOD 06/14/2025 2:50 AM EDT [facility] Lymphocytes Relative 6.8 % LAB HEMETOLOGY METHOD [facility]/14[facility] Monocytes Relative 13.1 % LAB HEMETOLOGY METHOD 06/14/2025 2:50 AM T [facility] Eosinophils Relative 0.0 % LAB HEMETOLOGY METHOD 06/14/2025 2:50 AM EDT [facility] Basophils Relative 0.4 % LAB HEMETOLOGY METHOD 06/14/2025 2:50 AM EDT [facility] Immature Granulocytes Relative 0.4 % LAB HEMETOLOGY METHOD 06/14/2025 2:50 AM EDT [facility] Neutrophils Absolute 6.55 1.50 - 7.00 K/mcL LAB HEMETOLOGY METHOD 06/14/2025 2:50 AM EDT [facility] Lymphocytes Absolute 0.56(L) 1.00 - 5.00 K/mcL LAB HEMETOLOGY METHOD 06/14/2025 2:50 AM EDT [facility] Monocytes Absolute 1.08(H) 0.20 - 1.00 K/mcL LAB HEMETOLOGY METHOD 06/14/2025 2:50 AM EDT [facility] Eosinophils Absolute 0.00 0.00 - 0.50 K/mcL LAB HEMETOLOGY METHOD 06/14/2025 2:50 AM EDT [facility] Basophils Absolute 0.03 0.00 - 0.20 K/mcL LAB HEMETOLOGY METHOD 06/14/2025 2:50 AM EDT [facility] Immature Granulocytes Absolute 0.03 0.00 - 0.03 K/mcL LAB HEMETOLOGY METHOD 06/14/2025 2:50 AM EDT [facility] Blood Venous blood specimen / Unknown Venipuncture / Unknown 06/14/2025 1:39 AM EDT 06/14/2025 2:13 AM EDT us Vickie GARCES LAB BLOOD ORDERABLES Final R esult [facility] [address] [place] [address], * (ABNORMAL) B-type natriuretic peptide (06/14/2025 1:39 AM EDT) Pathologist [facility] BNP 659(H) <=100 pcg/mL LAB CHEMISTRY METHOD 06/14/2025 2:[address] [facility] Blood Venous blood specimen / Unknown Venipuncture / Unknown 06/14/2025 1:39 AM EDT 06/14/2025 2:13 AM EDT Vickie GARCES LAB BLOOD ORDERABLES Final R esult [facility] [address] [place] [address], [place] [phone] * (ABNORMAL) Comprehensive metabolic panel (06/14/2025 1:39 AM EDT) [facility] Sodium 139 133 - 145 mmol/L LAB CHEMISTRY METHOD 06/14/2025 2:[address] [facility] Potassium 4.0 3.5 - 5.5 mmol/L LAB CHEMISTRY METHOD 06/14/2025 2:[address] [facility] Chloride 107 96 - 110 mmol/L LAB CHEMISTRY METHOD 06/14/2025 2:[address] [facility] CO2 24 21 - 32 mmol/L LAB CHEMISTRY METHOD 06/14/2025 2:[address] [facility] Anion Gap 8 3 - 11 LAB CHEMISTRY METHOD 06/14/2025 2:[address] [facility] Glucose 145(H) 70 - 100 mg/dL LAB CHEMISTRY METHOD 06/14/2025 2:[address] [facility] BUN 45(H) 5 - 25 mg/dL LAB CHEMISTRY METHOD 06/14/2025 2:[address] [facility] Creatinine 3.35(H) 0.70 - 1.30 mg/dL LAB CHEMISTRY METHOD 06/14/2025 2:[address] [facility] eGFR 18(L) >=60 mL/min/1. 73m2 LAB CHEMISTRY METHOD 06/14/2025 2:56 AM EDT [facility] Comment:Calculation based on the Chronic Kidney Disease Epidemiology Collaboration (CKD-EPI) equation refit without adjustment for race. BUN/Creatinine Ratio 13.4 LAB CHEMISTRY METHOD 06/14/2025 2:56 AM T [facility] Calcium 8.9 8.5 - 10.5 mg/dL LAB CHEMISTRY METHOD 06/14/2025 2:[address] [facility] AST (SGOT) 66(H) 10 - 42 unit/L LAB CHEMISTRY METHOD 06/14/2025 2:[address] [facility] ALT (SGPT) 40 10 - 60 unit/L LAB CHEMISTRY METHOD 06/14/2025 2:[address] [facility] Alkaline Phosphatase 117 42 - 121 unit/L LAB CHEMISTRY METHOD 06/14/2025 2:[address] [facility] Total Protein 6.3 6.0 - 8.0 g/dL LAB CHEMISTRY METHOD 06/14/2025 2:[address] [facility] Albumin 2.9(L) 3.2 - 5.0 g/dL LAB CHEMISTRY METHOD 06/14/2025 2:[address] [facility] Total Bilirubin 0.5 0.0 - 1.4 mg/dL LAB CHEMISTRY METHOD 06/14/2025 2:56 AM T [facility] Blood Venous blood specimen / Unknown Venipuncture / Unknown 06/14/2025 1:39 AM EDT 06/14/2025 2:13 AM EDT us Vickie GARCES LAB BLOOD ORDERABLES Final R esult [facility] [address] [place] [address], * (ABNORMAL) Troponin I high sensitivity (06/14/2025 1:39 AM EDT) High Sensitivity Troponin I 111(H) <=79 ng/L LAB CHEMISTRY METHOD 06/14/2025 2:51 AM EDT [facility] Blood Venous blood specimen / Unknown Venipuncture / Unknown 06/14/2025 1:39 AM EDT 06/14/2025 2:13 AM EDT Narrative [facility] - 06/14/2025 2:51 AM EDT High levels of biotin in samples may falsely decrease hsTroponin values. Use caution when interpreting hsTroponin results in patients taking biotin who exhibit renal impairment (eGFR <60) or in patients taking more than 20 mg/day of biotin. Vickie GARCES LAB BLOOD ORDERABLES Final R esult [facility] [address] [place] [address], * XR Chest 1 View (06/14/2025 1:30 AM EDT) Anatomical Region Laterality Modality Body Radiographic Angy ging 06/14/2025 9:06 AM EDT Impressions 06/14/2025 9:07 AM EDT Impression: No active pulmonary process identified. Telekevin GARCES ([id number]) -------- FINAL REPORT -------- Dictated By: Lashae Karimi Dictated Date: 06/14/2025 09:06 ET Assigned Physician: Lashae Karimi Reviewed and Electronically Signed By: Lashae Karimi Signed Date: 06/14/2025 09:07 ET Workstation ID: [id number] Transcribed By: Self Edit Transcribed Date: 06/14/2025 09:06 ET Narrative 06/14/2025 9:07 AM EDT History: Dyspnea. Comparison: 10/28/10 Findings: Portable AP upright chest at 1:25 AM. The cardiac silhouette remains normal in size. Hilar contours and pulmonary vascularity are within normal limits. The lungs are grossly clear. Mild right hemidiaphragmatic elevation is similar to the previous study. Procedure Note Lashae Karimi MD - 06/14/2025 History: Dyspnea. Comparison: 10/28/10 Findings: Portable AP upright chest at 1:25 AM. The cardiac silhouette remainsnormal in size. Hilar contours and pulmonary vascularity are within normallimits. The lungs are grossly clear. Mild right hemidiaphragmatic elevation is similar to the previous study. IMPRESSION: Impression: No active pulmonary process identified. Telerad MILI ([id number]) -------- FINAL REPORT -------- Dictated By: Lashae Karimi Dictated Date: 06/14/2025 09:06 ET Assigned Physician: Lashae Karimi Reviewed and Electronically Signed By: Lashae Karimi Signed Date: 06/14/2025 09:07 ET Workstation ID: [id number] Transcribed By: Self Edit Transcribed Date: 06/14/2025 09:06 ET Rich Dia MD IMG XR PROCEDURES Final Res ult * (ABNORMAL) Blood culture pathogens molecular study (06/14/2025 1:28 AM EDT) [facility] Escherichia coli Detected (A) Not Detected LAB MICROBIOLOGY METHOD 06/14/2025 5:28 PM EDT [facility] Blood Venous blood specimen / Unknown Venipuncture / Unknown 06/14/2025 1:28 AM EDT 06/14/2025 2:14 AM EDT Vickie GARCES LAB MICROBIOLOGY - GENERAL O RDERABLES Final Result [facility] [address] [place] [address], * (ABNORMAL) Blood Culture, Peripheral Draw #2 (06/14/2025 1:28 AM EDT) [facility] Culture, Blood Escherichia coli(AA) MACIE 06/16/2025 8:19 AM EDT [facility] Comment: The organism value for this result has been updated. These results have been appended to the previously preliminary verified report. This is an edited result. Previous organism was Gram negative bacilli on 06/15/2025 at 0808 EDT. Gram Stain Result Aerobic and Anaerobic bottles Gram negative bacilli(AA) 06/16/2025 8:19 AM EDT [facility] Comment:This is an appended report. These results have been appended to a previously preliminary verified report. Blood Venous blood specimen / Unknown Venipuncture / Unknown 06/14/2025 1:28 AM EDT 06/14/2025 2:14 AM EDT Narrative Organism Antibiotic Method Susceptibility Escherichia coli Amoxicillin/Clavulanate MACIE <=2 ug/ml: Susceptible Escherichia coli Ampicillin/Sulbactam MACIE <=2 ug/ml: Susceptible Escherichia coli Piperacillin/Tazobactam MACIE <=4 ug/ml: Susceptible Escherichia coli Cefazolin (Other) MACIE 2 ug/ml: Susceptible Escherichia coli Cefoxitin MACIE <=4 ug/ml: Susceptible Escherichia coli Ceftazidime MACIE <=0.5 ug/ml: Susceptible Escherichia coli Ceftriaxone MACIE <=0.25 ug/ml: Susceptible Escherichia coli Cefepime MACIE <=0.12 ug/ml: Susceptible Escherichia coli Meropenem MACIE <=0.25 ug/ml: Susceptible Escherichia coli Amikacin MACIE 2 ug/ml: Susceptible Escherichia coli Gentamicin MACIE <=1 ug/ml: Susceptible Escherichia coli Ciprofloxacin MACIE <=0.06 ug/ml: Susceptible Escherichia coli Levofloxacin MACIE <=0.12 ug/ml: Susceptible Escherichia coli Trimethoprim/Sulfamethoxazole MACIE <=20 ug/ml: Susceptible us Vickie GARCES LAB MICROBIOLOGY - GENERAL O RDERABLES Final Result [facility] [address] [place] [address], * ECG 12 lead (06/14/2025 1:21 AM EDT) Ventricular Rate ECG 86 BPM GEMUSE Atrial Rate 86 BPM GEMUSE P-R Interval 128 ms GEMUSE QRS Duration 90 ms GEMUSE Q-T Interval 384 ms GEMUSE QTc 459 ms GEMUSE P Wave Ohlman 4 degrees GEMUSE R Ohlman -18 degrees GEMUSE T Ohlman -9 degrees GEMUSE ECG Interpretation Sinus rhythm with sinus arrhythmia with frequent Premature ventricular complexes Otherwise normal ECG When compared with ECG of 19-FEB-2024 06:41, Premature ventricular complexes are now Present Confirmed by TOM KIM ([id number]) on 06/15/2025 11:24:51 AM GEMUSE 06/14/2025 1:21 AM EDT 06/15/2025 11:24 AM EDT us Rich Dia MD ECG ORDERABLES Final Resul t GEMUSE documented in this encounter Visit Diagnoses Diagnosis Urinary tract infection- Primary Urinary tract infection, site not specified Urinary tract infection without hematuria, site unspecified Lightheadedness Dizziness and giddiness NSTEMI (non-ST elevated myocardial infarction) ([facility] V24, [facility] V28) Acute myocardial infarction, subendocardial infarction, episode of care unspecified Dizziness Dizziness and giddiness Essential hypertension, benign CKD (chronic kidney disease) stage 4, GFR 15-29 ml/min ([facility] V24, [facility] V28) Chronic kidney disease, Stage IV (severe) Fever, unspecified fever cause Fever Fever, unspecified documented in this encounter Admitting Diagnoses Diagnosis Urinary tract infection Urinary tract infection, site not specified documented in this encounter Administered Medications Inactive Administered Medications - up to 3 most recent administrations Medication Order MAR Action Action Date Dose Rate Site acetaminophen (TYLENOL) tablet 1,000 mg 1,000 mg, oral, Once, On Thu06/14/25 at 0117, For 1 dose Given 06/14/2025 1:29 AM EDT 1,000 mg acetaminophen (TYLENOL) tablet 650 mg 650 mg, oral, Every 4 hours PRN, mild pain, headaches, fever - temperature GREATER than 38 C (100.4 F), Starting on Thu06/14/25 at 0716 Given 06/14/2025 11:34 AM EDT 650 mg albuterol 2.5 mg /3 mL (0.083 %) nebulizer solution 2.5 mg 2.5 mg, nebulization, Every 1 hour PRN, wheezing, shortness of breath, Starting on Thu06/14/25 at 1103 Given 06/14/2025 11:11 AM EDT 2.5 mg amLODIPine (NORVASC) tablet 7.5 mg 7.5 mg, oral, Daily, First dose on Thu06/14/25 at 1015, Indications: hypertensionIndications:hyperte nsion Given 06/16/2025 8:52 AM EDT 7.5 mg Given 06/15/2025 9:38 AM EDT 7.5 mg Given 06/14/2025 11:34 AM EDT 7.5 mg aspirin chewable tablet 324 mg 324 mg, oral, Once, On Thu06/14/25 at 0256, For 1 dose Given 06/14/2025 3:37 AM EDT 324 mg aspirin EC tablet 81 mg 81 mg, oral, Daily, First dose on Thu06/15/25 at 0900, Do not crush, chew, or split. Given 06/16/2025 8:52 AM EDT 81 mg Given 06/15/2025 9:38 AM EDT 81 mg atorvastatin (LIPITOR) tablet 20 mg 20 mg, oral, Daily, First dose on Thu06/14/25 at 1015 Given 06/16/2025 8:53 AM EDT 20 mg Given 06/15/2025 9:38 AM EDT 20 mg Given 06/14/2025 11:35 AM EDT 20 mg azithromycin (ZITHROMAX) 500 mg in sodium chloride 0.9 % 250 mL IVPB 500 mg, intravenous, at 250 mL/hr, Administer over 60 Minutes, Every 24 hours, First dose on Thu06/14/25 at 1300, For 5 days, Indication: Other, Specify: Respiratory distress New Bag 06/14/2025 1:59 PM EDT 500 mg 2 50 mL/hr calcitrioL (ROCALTROL) capsule 0.25 mcg 0.25 mcg, oral, Daily, First dose on Thu06/14/25 at 1015 Given 06/16/2025 8:52 AM EDT 0.25 mcg Given 06/15/2025 9:38 AM EDT 0.25 mcg Given 06/14/2025 11:34 AM EDT 0.25 mcg calcium carbonate (TUMS) chewable tablet 1,000 mg 1,000 mg, oral, 4 times daily PRN, heartburn, indigestion, Starting on Thu06/15/25 at 1648, Ordered as calcium carbonate. 500 mg calcium carbonate = 200 mg elemental calcium. Given 06/15/2025 5:08 PM EDT 1,000 mg cefTRIAXone (ROCEPHIN) 1 g in sterile water 10 mL IV syringe 1 g, intravenous, Administer over 3 Minutes, Once, On Thu06/14/25 at 0442, For 1 dose, Do not administer simultaneously with any calcium containing solutions via a Y-site in any patient., Indication: Urinary Tract/Genitourinary Given 06/14/2025 4:56 AM EDT 1 g cefTRIAXone (ROCEPHIN) 1 g in sterile water 10 mL IV syringe 1 g, intravenous, Administer over 3 Minutes, Once, On Thu06/14/25 at 1615, For 1 dose, Do not administer simultaneously with any calcium containing solutions via a Y-site in any patient., Indication: Bacteremia Given 06/14/2025 6:04 PM EDT 1 g cefTRIAXone (ROCEPHIN) 2 g in sterile water 20 mL IV syringe 2 g, intravenous, Administer over 3 Minutes, Every 24 hours, First dose on Thu06/15/25 at 0500, For 5 days, Do not administer simultaneously with any calcium containing solutions via a Y-site in any patient., Indication: Bacteremia Given 06/16/2025 5:23 AM EDT 2 g Given 06/15/2025 4:53 AM EDT 2 g cloNIDine ([id number]) 0.2 mg/24 hr 1 patch 1 patch, transdermal, Administer over 7 Days, Weekly, First dose on Thu06/14/25 at 1015 Patch Applied 06/14/2025 2:00 PM EDT 1 patch R ight Arm famotidine (PEPCID) tablet 20 mg 20 mg, oral, Daily, First dose on Thu06/14/25 at 1030 Given 06/16/2025 8:53 AM EDT 20 mg Given 06/15/2025 9:38 AM EDT 20 mg Given 06/14/2025 11:35 AM EDT 20 mg furosemide (LASIX) 10 mg/mL injection - ADS Override Pull Starting on Thu06/14/25 at 1107, For 1 dose, Created by cabinet override furosemide (LASIX) 10 mg/mL injection - ADS Override Pull Starting on Thu06/14/25 at 1115, For 1 dose, Created by cabinet override Given 06/14/2025 11:37 AM EDT 20 mg furosemide (LASIX) injection 20 mg 20 mg, intravenous, Once, On Thu06/14/25 at 1130, For 1 dose Given 06/14/2025 11:19 AM EDT 20 mg Given 06/14/2025 11:09 AM EDT 20 mg furosemide (LASIX) injection 80 mg 80 mg, intravenous, Once, On Thu06/14/25 at 1200, For 1 dose Given 06/14/2025 11:50 AM EDT 80 mg gabapentin (NEURONTIN) capsule 200 mg 200 mg, oral, 2 times daily, First dose on Thu06/14/25 at 1015 Given 06/16/2025 8:54 AM EDT 200 mg Given 06/15/2025 10:53 PM EDT 200 mg Given 06/15/2025 9:38 AM EDT 200 mg guaiFENesin (MUCINEX) 12 hr tablet 600 mg 600 mg, oral, Every 12 hours scheduled, First dose on Thu06/14/25 at 1200, Administer with plenty of fluids to ensure proper action. Do not crush, chew, or split. Given 06/16/2025 8:52 AM EDT 600 mg Given 06/15/2025 10:53 PM EDT 600 mg Given 06/15/2025 9:38 AM EDT 600 mg heparin (UFH) injection 5,000 Units 5,000 Units, subcutaneous, Every 8 hours scheduled, First dose on Thu06/14/25 at 1400, Enter Indication for use of heparin (UFH) instead of enoxaparin (LOVENOX): (free text): acute on chronic renal failure, Indication: VTE Prophylaxis, Indications: Prophylaxis of Venous ThromboembolismIndications:Pr ophylaxis of Venous Thromboembolism Given 06/16/2025 5:23 AM EDT 5,000 Units Right Upper Abdomen Given 06/15/2025 10:53 PM EDT 5,000 Units Right Lower Abdomen Given 06/15/2025 3:28 PM EDT 5,000 Units L eft Lower Abdomen ipratropium-albuteroL (DUONEB) 0.5-2.5 mg/3 mL nebulizer solution 3 mL 3 mL, nebulization, Every 6 hours, First dose on Thu06/14/25 at 1200 Given 06/16/2025 7:57 AM EDT 3 mL Given 06/15/2025 8:01 PM EDT 3 mL Given 06/15/2025 1:35 PM EDT 3 mL lactated Ringer's infusion 100 mL/hr, intravenous, Continuous, Starting on Thu06/14/25 at 0745, For 10 hours Rate/Dose Verify 06/14/2025 10:03 AM EDT 100 mL/hr 100 mL/hr New Bag 06/14/2025 8:00 AM EDT 100 mL/hr 100 mL/hr methylPREDNISolone sodium succ (SOLU-Medrol) injection 125 mg 125 mg, intravenous, Once, On Thu06/14/25 at 1200, For 1 dose, Reconstitute each 125 mg vial with 2 mL sterile water for injection to a concentration of 62.5 mg/mL. Given 06/14/2025 11:50 AM EDT 125 mg methylPREDNISolone sodium succ (SOLU-Medrol) injection 60 mg 60 mg, intravenous, Every 6 hours scheduled, First dose on Thu06/14/25 at 1800, Reconstitute each 125 mg vial with 2 mL sterile water for injection to a concentration of 62.5 mg/mL. Given 06/15/2025 5:53 AM EDT 60 mg Given 06/15/2025 12:09 AM EDT 60 mg Given 06/14/2025 6:05 PM EDT 60 mg metoprolol tartrate (LOPRESSOR) tablet 50 mg 50 mg, oral, 2 times daily, First dose on Thu06/14/25 at 1015 Given 06/16/2025 8:52 AM EDT 50 mg Given 06/15/2025 10:53 PM EDT 50 mg Given 06/15/2025 9:38 AM EDT 50 mg nicotine (NICODERM CQ) 21 mg/24 hr patch 1 patch 1 patch, transdermal, Administer over 24 Hours, Daily, First dose on Thu06/14/25 at 0900 Patch Applied 06/16/2025 8:53 AM EDT 1 patch L eft Arm Patch Applied 06/15/2025 9:39 AM EDT 1 patch Left Arm Patch Applied 06/14/2025 8:00 AM EDT 1 patch Left Arm ondansetron (PF) (ZOFRAN) injection 4 mg 4 mg, intravenous, Every 8 hours PRN, vomiting, nausea, Starting on Thu06/14/25 at 0716, -ONLY give IV if patient is unable to take orally. -If inadequate response within 30 minutes, proceed to next-line agent or contact provider if no further options ordered. ondansetron ODT (ZOFRAN-ODT) disintegrating tablet 4 mg 4 mg, oral, Every 8 hours PRN, vomiting, nausea, Starting on Thu06/14/25 at 0716, -Give IV if patient is unable to take orally. -If inadequate response within 30 minutes, proceed to next-line agent or contact provider if no further options ordered. For ODT tablets: -Do not remove from blister pack until just before administering. -Patient should allow tablet to dissolve on tongue. perflutren lipid microsphere (DEFINMacrocosm) 1.3 mL in sodium chloride 0.9% 8.7 mL injection 10 mL, intravenous, Administer over 10 Minutes, Once in imaging, Starting on Thu06/14/25 at 1056, For 1 dose, CV Medication Orders Given 06/14/2025 10:56 AM EDT 10 mL polyethylene glycol (MIRALAX) packet 17 g 17 g, oral, Daily, First dose on Thu06/16/25 at 0600 Given 06/16/2025 5:43 AM EDT 17 g predniSONE (DELTASONE) tablet 40 mg 40 mg, oral, Daily, First dose on Thu06/15/25 at 1200, For 4 days Given 06/16/2025 8:52 AM EDT 40 mg Given 06/15/2025 12:34 PM EDT 40 mg prochlorperazine (COMPAZINE) injection 10 mg 10 mg, intravenous, Every 6 hours PRN, nausea, vomiting, Starting on Thu06/14/25 at 0716, 2nd Line Option: -ONLY give IV if patient is unable to take orally. -Give IM if patient does not have IV Access -If inadequate response within 30 minutes, proceed to next-line agent or contact provider if no further options ordered. prochlorperazine (COMPAZINE) suppository 25 mg 25 mg, rectal, Every 12 hours PRN, nausea, vomiting, Starting on Thu06/14/25 at 0716, 2nd Line Option: -ONLY give CO if patient is unable to take orally and cannot receive IV/IM. -If inadequate response within 30 minutes, proceed to next-line agent or contact provider if no further options ordered. prochlorperazine (COMPAZINE) tablet 10 mg 10 mg, oral, Every 6 hours PRN, nausea, vomiting, Starting on Thu06/14/25 at 0716, 2nd Line Option: -Give IV or IM if patient is unable to take orally. -If inadequate response within 30 minutes, proceed to next-line agent or contact provider if no further options ordered. senna (SENOKOT) tablet 17.2 mg 17.2 mg (2 tablet), oral, Nightly, First dose on Thu06/16/25 at 2100 sodium chloride 0.9 % bolus 1,000 mL 1,000 mL, intravenous, at 1,000 mL/hr, Administer over 1 Hours, Once, On Thu06/14/25 at 0349, For 1 dose New Bag 06/14/2025 3:56 AM EDT 1,000 mL 1000 mL/hr sodium chloride 0.9 % flush 10 mL 10 mL, intravenous, 2 times daily, First dose on Thu06/14/25 at 0900 Given 06/16/2025 8:57 AM EDT 10 mL Given 06/15/2025 11:06 PM EDT 10 mL Given 06/15/2025 9:39 AM EDT 10 mL sodium chloride 0.9 % flush 10 mL 10 mL, intravenous, As needed, line care, Starting on Thu06/14/25 at 0716 Given 06/14/2025 8:02 AM EDT 10 mL documented in this encounter Discontinued Medications Medication Sig Discontinue Reason Start Date End Da te amLODIPine (NORVASC) 5 mg tablet Take 1 tablet (5 mg total) by mouth 1 (one) time each day. 04/17/2025 06/16/2025 documented as of this encounter Active and Recently Administered Medications Times are shown in EDT. Scheduled Medication Order 06/14/2025 06/15/2025 06/16/2025 acetaminophen (TYLENOL) tablet 1,000 mg (COMPLETED) 1,000 mg, oral, Once, On Thu06/14/25 at 0117, For 1 dose 0129 (Given - Provider: Blanquita Nolasco, THOM - Comment: fever) amLODIPine (NORVASC) tablet 7.5 mg 7.5 mg, oral, Daily, First dose on Thu06/14/25 at 1015, Indications: hypertension 1134 (Given - Provider: Lakia Bennett, THOM) 0938 (Given - Provider: Meryl Vargas, THOM) 0852 (Given - Provider: Chelle Arce, THOM) aspirin chewable tablet 324 mg (COMPLETED) 324 mg, oral, Once, On Thu06/14/25 at 0256, For 1 dose 0337 (Given - Provider: Blanquita Nolasco, THOM) aspirin EC tablet 81 mg 81 mg, oral, Daily, First dose on Thu06/15/25 at 0900, Do not crush, chew, or split. 0938 (Given - Provider: Meryl Vargas RN) 0852 (Given - Provider: Chelle Arce RN) atorvastatin (LIPITOR) tablet 20 mg 20 mg, oral, Daily, First dose on Thu06/14/25 at 1015 1135 (Given - Provider: Lakia Bennett RN) 0938 (Given - Provider: Meryl Vargas RN) 0853 (Given - Provider: Chelle Arce RN) azithromycin (ZITHROMAX) 500 mg in sodium chloride 0.9 % 250 mL IVPB (CANCELED) 500 mg, intravenous, at 250 mL/hr, Administer over 60 Minutes, Every 24 hours, First dose on Thu06/14/25 at 1300, For 5 days, Indication: Other, Specify: Respiratory distress 1359 (New Bag - Provider: Lakia Bennett, RN)1459 (Stopped - Provider: Lakia Bennett RN) barium sulfate (READI-CAT 2) 2 % (w/v) suspension 450 mL 450 mL, oral, Once, On Thu06/14/25 at 1030, For 1 dose 1133 (Not Given - Provider: Lakia Bennett RN - Reason: Other - Comment: already had CT) calcitrioL (ROCALTROL) capsule 0.25 mcg 0.25 mcg, oral, Daily, First dose on Thu06/14/25 at 1015 1134 (Given - Provider: Lakia Bennett RN) 0938 (Given - Provider: Meryl Vargas, RN) 0852 (Given - Provider: Chelle Arce, THOM) cefTRIAXone (ROCEPHIN) 1 g in sterile water 10 mL IV syringe (COMPLETED) 1 g, intravenous, Administer over 3 Minutes, Once, On Thu06/14/25 at 0442, For 1 dose, Do not administer simultaneously with any calcium containing solutions via a Y-site in any patient., Indication: Urinary Tract/Genitourinary 0456 (Given - Provider: Blanquita Nolasco RN) cefTRIAXone (ROCEPHIN) 1 g in sterile water 10 mL IV syringe (COMPLETED) 1 g, intravenous, Administer over 3 Minutes, Once, On Thu06/14/25 at 1615, For 1 dose, Do not administer simultaneously with any calcium containing solutions via a Y-site in any patient., Indication: Bacteremia 1804 (Given - Provider: Lakia Bennett RN - Comment: pt off unit at [facility]) cefTRIAXone (ROCEPHIN) 2 g in sterile water 20 mL IV syringe 2 g, intravenous, Administer over 3 Minutes, Every 24 hours, First dose on Leora 06/15/25 at 0500, For 5 days, Do not administer simultaneously with any calcium containing solutions via a Y-site in any patient., Indication: Bacteremia 0453 (Given - Provider: Ibeth Dutton RN) 0523 (Given - Provider: Víctor Padilla RN) cloNIDine (IFDMROHO-BZL-7) 0.2 mg/24 hr 1 patch 1 patch, transdermal, Administer over 7 Days, Weekly, First dose on Thu06/14/25 at 1015 1400 (Patch Applied - Provider: Lakia Bennett RN) 1348 (Due: Patch Removed - Provider: Automatic Discharge Provider - Comment: Time automatically adjusted from order being discontinued) famotidine (PEPCID) tablet 20 mg(Linked Group 1) 20 mg, oral, Daily, First dose on Thu06/14/25 at 1030 1135 (Given - Provider: Lakia Bennett RN) 0938 (Given - Provider: Meryl Vargas, THOM) 0853 (Given - Provider: Chelle Arce RN) furosemide (LASIX) injection 20 mg (COMPLETED) 20 mg, intravenous, Once, On Thu06/14/25 at 1130, For 1 dose 1109 (Given - Provider: Lakia Bennett RN)1119 (Given - Provider: Lakia Bennett RN - Comment: pt is distress verbal order) furosemide (LASIX) injection 80 mg (COMPLETED) 80 mg, intravenous, Once, On Thu06/14/25 at 1200, For 1 dose 1150 (Given - Provider: Lakia Bennett RN) gabapentin (NEURONTIN) capsule 200 mg 200 mg, oral, 2 times daily, First dose on Thu06/14/25 at 1015 1134 (Given - Provider: Lakia Bennett RN)2155 (Given - Provider: Ibeth Dutton RN) 0938 (Given - Provider: Meryl Vargas RN)225 (Given - Provider: Víctor Padilla, THOM) 0854 (Given - Provider: Chelle Arce, THOM) guaiFENesin (MUCINEX) 12 hr tablet 600 mg 600 mg, oral, Every 12 hours scheduled, First dose on Thu06/14/25 at 1200, Administer with plenty of fluids to ensure proper action. Do not crush, chew, or split. 1151 (Given - Provider: Lakia Bennett RN)2155 (Given - Provider: Ibeth Dutton RN) 0938 (Given - Provider: Meryl Vargas RN)2253 (Given - Provider: Víctor Padilla, THOM) 0852 (Given - Provider: Chelle Arce, THOM) heparin (UFH) injection 5,000 Units 5,000 Units, subcutaneous, Every 8 hours scheduled, First dose on Thu06/14/25 at 1400, Enter Indication for use of heparin (UFH) instead of enoxaparin (LOVENOX): (free text): acute on chronic renal failure, Indication: VTE Prophylaxis, Indications: Prophylaxis of Venous Thromboembolism 1359 (Given - Provider: Lakia Bennett RN)2156 (Given - Provider: Ibeth Dutton RN) 0554 (Given - Provider: Ibeth Dutton RN)1528 (Given - Provider: Meryl Vargas RN)2253 (Given - Provider: Víctor Padilla RN) 0523 (Given - Provider: Víctor Padilla, THOM)1400 (Canceled Entry - Provider: Automatic Discharge Provider - Comment: Automatically canceled at discontinue of medication order) ipratropium-albuteroL (DUONEB) 0.5-2.5 mg/3 mL nebulizer solution 3 mL 3 mL, nebulization, Every 6 hours, First dose on Thu06/14/25 at 1200 1303 (Given - Provider: Magdy Cristina, CONSTRUCTION SPECIALIST)2047 (Given - Provider: Lakia Solorzano, CONSTRUCTION SPECIALIST) 0105 (Not Given - Provider: Elizabeth Cobos, CONSTRUCTION SPECIALIST - Reason: Other - Comment: Pt asleep on room air. VSS.)0845 (Given - Provider: Grisel Pritchard, CONSTRUCTION SPECIALIST)1335 (Given - Provider: Grisel Pritchard CONSTRUCTION SPECIALIST)2001 (Given - Provider: Shanna Hankins) 0251 (Not Given - Provider: Jean Carlos Phelps, CONSTRUCTION SPECIALIST - Reason: Patient/Resident/Agent refused - education provided )0757 (Given - Provider: Kristie Pro, CONSTRUCTION SPECIALIST)1400 (Canceled Entry - Provider: Automatic Discharge Provider - Comment: Automatically canceled at discontinue of medication order) methylPREDNISolone sodium succ (SOLU-Medrol) injection 125 mg (COMPLETED) 125 mg, intravenous, Once, On Thu06/14/25 at 1200, For 1 dose, Reconstitute each 125 mg vial with 2 mL sterile water for injection to a concentration of 62.5 mg/mL. 1150 (Given - Provider: Lakia Bennett RN) methylPREDNISolone sodium succ (SOLU-Medrol) injection 60 mg (CANCELED) 60 mg, intravenous, Every 6 hours scheduled, First dose on Thu06/14/25 at 1800, Reconstitute each 125 mg vial with 2 mL sterile water for injection to a concentration of 62.5 mg/mL. 1805 (Given - Provider: Lakia Bennett RN) 0009 (Given - Provider: Ibeth Dutton, THOM)0553 (Given - Provider: Ibeth Dutton, THOM) metoprolol tartrate (LOPRESSOR) tablet 50 mg 50 mg, oral, 2 times daily, First dose on Thu06/14/25 at 1015 1134 (Given - Provider: Lakia Bennett RN)2155 (Given - Provider: Ibeth Dutton RN) 0938 (Given - Provider: Meryl Vargas RN)2253 (Given - Provider: Víctor Padilla, THOM) 0852 (Given - Provider: Chelle Arce, THOM) nicotine (NICODERM CQ) 21 mg/24 hr patch 1 patch 1 patch, transdermal, Administer over 24 Hours, Daily, First dose on Thu06/14/25 at 0900 0800 (Patch Applied - Provider: Lakia Bennett, THOM) 0819 (Patch Removed - Provider: Meryl Vargas RN)0939 (Patch Applied - Provider: Meryl Vargas RN) 0853 (Patch Applied - Provider: Chelle Arce, THOM)0854 (Patch Removed - Provider: Chelle Arce RN)1348 (Due: Patch Removed - Provider: Automatic Discharge Provider - Comment: Time automatically adjusted from order being discontinued) perflutren lipid microsphere (DEFINITY) 1.3 mL in sodium chloride 0.9% 8.7 mL injection (COMPLETED) 10 mL, intravenous, Administer over 10 Minutes, Once in imaging, Starting on Thu06/14/25 at 1056, For 1 dose, CV Medication Orders 1056 (Given - Provider: Bridget Cherry) polyethylene glycol (MIRALAX) packet 17 g 17 g, oral, Daily, First dose on Thu06/16/25 at 0600 0543 (Given - Provider: Víctor Padilla, THOM) predniSONE (DELTASONE) tablet 40 mg 40 mg, oral, Daily, First dose on Thu06/15/25 at 1200, For 4 days 1234 (Given - Provider: Meryl Vargas RN) 0852 (Given - Provider: Chelle Arce RN) senna (SENOKOT) tablet 17.2 mg 17.2 mg (2 tablet), oral, Nightly, First dose on Thu06/16/25 at 2100 sodium chloride 0.9 % bolus 1,000 mL (COMPLETED) 1,000 mL, intravenous, at 1,000 mL/hr, Administer over 1 Hours, Once, On Thu06/14/25 at 0349, For 1 dose 0356 (New Bag - Provider: Blanquita Nolasco RN)0456 (Stopped - Provider: Lakia Bennett RN) sodium chloride 0.9 % flush 10 mL(Linked Group 2) 10 mL, intravenous, 2 times daily, First dose on Thu06/14/25 at 0900 0803 (Given - Provider: Lakia Bennett RN)2221 (Given - Provider: Ibeth Dutton, THOM) 0939 (Given - Provider: Meryl Vargas, RN)2306 (Given - Provider: Víctor Padilla, RN) 0857 (Given - Provider: Chelle Arce, THOM) Continuous Medication Order 06/14/2025 06/15/2025 06/16/2025 lactated Ringer's infusion (CANCELED) 100 mL/hr, intravenous, Continuous, Starting on Thu06/14/25 at 0745, For 10 hours 0800 (New Bag - Provider: Lakia Bennett RN)1003 (Rate/Dose Verify - Provider: Lakia Bennett RN)1154 (Stopped - Provider: Lakia Bennett RN) PRN Medication Order 06/14/2025 06/15/2025 06/16/2025 acetaminophen (TYLENOL) tablet 650 mg 650 mg, oral, Every 4 hours PRN, mild pain, headaches, fever - temperature GREATER than 38 C (100.4 F), Starting on Thu06/14/25 at 0716 1134 (Given - Provider: Lakia Bennett RN) albuterol 2.5 mg /3 mL (0.083 %) nebulizer solution 2.5 mg 2.5 mg, nebulization, Every 1 hour PRN, wheezing, shortness of breath, Starting on Thu06/14/25 at 1103 1111 (Given - Provider: Magdy Cristina, CONSTRUCTION SPECIALIST) calcium carbonate (TUMS) chewable tablet 1,000 mg 1,000 mg, oral, 4 times daily PRN, heartburn, indigestion, Starting on Leora 06/15/25 at 1648, Ordered as calcium carbonate. 500 mg calcium carbonate = 200 mg elemental calcium. 1708 (Given - Provider: Meryl Vargas, THOM) ondansetron (PF) (ZOFRAN) injection 4 mg(Linked Group 3) 4 mg, intravenous, Every 8 hours PRN, vomiting, nausea, Starting on Thu06/14/25 at 0716, -ONLY give IV if patient is unable to take orally. -If inadequate response within 30 minutes, proceed to next-line agent or contact provider if no further options ordered. ondansetron ODT (ZOFRAN-ODT) disintegrating tablet 4 mg(Linked Group 3) 4 mg, oral, Every 8 hours PRN, vomiting, nausea, Starting on Thu06/14/25 at 0716, -Give IV if patient is unable to take orally. -If inadequate response within 30 minutes, proceed to next-line agent or contact provider if no further options ordered. For ODT tablets: -Do not remove from blister pack until just before administering. -Patient should allow tablet to dissolve on tongue. prochlorperazine (COMPAZINE) injection 10 mg(Linked Group 4) 10 mg, intravenous, Every 6 hours PRN, nausea, vomiting, Starting on Thu06/14/25 at 0716, 2nd Line Option: -ONLY give IV if patient is unable to take orally. -Give IM if patient does not have IV Access -If inadequate response within 30 minutes, proceed to next-line agent or contact provider if no further options ordered. prochlorperazine (COMPAZINE) suppository 25 mg(Linked Group 4) 25 mg, rectal, Every 12 hours PRN, nausea, vomiting, Starting on Thu06/14/25 at 0716, 2nd Line Option: -ONLY give CO if patient is unable to take orally and cannot receive IV/IM. -If inadequate response within 30 minutes, proceed to next-line agent or contact provider if no further options ordered. prochlorperazine (COMPAZINE) tablet 10 mg(Linked Group 4) 10 mg, oral, Every 6 hours PRN, nausea, vomiting, Starting on Thu06/14/25 at 0716, 2nd Line Option: -Give IV or IM if patient is unable to take orally. -If inadequate response within 30 minutes, proceed to next-line agent or contact provider if no further options ordered. sodium chloride 0.9 % flush 10 mL(Linked Group 2) 10 mL, intravenous, As needed, line care, Starting on Thu06/14/25 at 0716 0802 (Given - Provider: Lakia Bennett, THOM) No Frequency Medication Order 06/14/2025 06/15/2025 06/16/2025 furosemide (LASIX) 10 mg/mL injection - ADS Override Pull (COMPLETED) Starting on Thu06/14/25 at 1115, For 1 dose, Created by cabinet override 1137 (Given - Provider: Lakia Bennett RN - Comment: pt had total of 40 mg IV during emergency) Linked Groups Order Group 1: famotidine (PEPCID) tablet 20 mgJump to med 20 mg, oral, Daily, First dose on Thu06/14/25 at 1030 Or famotidine (PF) (PEPCID) injection 10 mg (CANCELED) 10 mg, intravenous, Administer over 2 Minutes, Daily, First dose on Thu06/14/25 at 1030, Give if unable to take by mouth or feeding tube. Group 2: Insert peripheral IV (CANCELED) STAT, Once, On Thu06/14/25 at 0717, For 1 occurrence And Maintain IV access (CANCELED) Until discontinued, Starting on Thu06/14/25 at 0717, Until Specified And Saline lock IV (CANCELED) Routine, Once, On Thu06/14/25 at 0717, For 1 occurrence And sodium chloride 0.9 % flush 10 mLJump to med 10 mL, intravenous, 2 times daily, First dose on Thu06/14/25 at 0900 And sodium chloride 0.9 % flush 10 mLJump to med 10 mL, intravenous, As needed, line care, Starting on Thu06/14/25 at 0716 Group 3: ondansetron ODT (ZOFRAN-ODT) disintegrating tablet 4 mgJump to med 4 mg, oral, Every 8 hours PRN, vomiting, nausea, Starting on Thu06/14/25 at 0716, -Give IV if patient is unable to take orally. -If inadequate response within 30 minutes, proceed to next-line agent or contact provider if no further options ordered. For ODT tablets: -Do not remove from blister pack until just before administering. -Patient should allow tablet to dissolve on tongue. Or ondansetron (PF) (ZOFRAN) injection 4 mgJump to med 4 mg, intravenous, Every 8 hours PRN, vomiting, nausea, Starting on Thu06/14/25 at 0716, -ONLY give IV if patient is unable to take orally. -If inadequate response within 30 minutes, proceed to next-line agent or contact provider if no further options ordered. Group 4: prochlorperazine (COMPAZINE) tablet 10 mgJump to med 10 mg, oral, Every 6 hours PRN, nausea, vomiting, Starting on Thu06/14/25 at 0716, 2nd Line Option: -Give IV or IM if patient is unable to take orally. -If inadequate response within 30 minutes, proceed to next-line agent or contact provider if no further options ordered. Or prochlorperazine (COMPAZINE) injection 10 mgJump to med 10 mg, intravenous, Every 6 hours PRN, nausea, vomiting, Starting on Thu06/14/25 at 0716, 2nd Line Option: -ONLY give IV if patient is unable to take orally. -Give IM if patient does not have IV Access -If inadequate response within 30 minutes, proceed to next-line agent or contact provider if no further options ordered. Or prochlorperazine (COMPAZINE) suppository 25 mgJump to med 25 mg, rectal, Every 12 hours PRN, nausea, vomiting, Starting on Thu06/14/25 at 0716, 2nd Line Option: -ONLY give CO if patient is unable to take orally and cannot receive IV/IM. -If inadequate response within 30 minutes, proceed to next-line agent or contact provider if no further options ordered. documented in this encounter Orders Medications Ordered That Cali ht Not Have Been Administered Count Last Ordered Date First Ordered Date senna (SENOKOT) tablet 17.2 mg 1 06/16/2025 pantoprazole (PROTONIX) EC tablet 40 mg 1 0 06/15/2025 barium sulfate (READI-CAT 2) 2 % (w/v) suspension 450 mL 2 06/14/2025 cefTRIAXone (ROCEPHIN) 1 g i n sterile water 10 mL IV syringe 1 06/14/2025 famotidine (PEPCID) tablet 20 mg 1 06/14/20 famotidine (PF) (PEPCID) injection 10 mg 1 06/14/2025 ipratropium-albuteroL (DUONE B) 0.5-2.5 mg/3 mL nebulizer solution - ADS Override Pull 1 06/14/2025 ondansetron (PF) (ZOFRAN) injection 4 mg 1 06/14/2025 ondansetron ODT (ZOFRAN-ODT) disintegrating tablet 4 mg 1 06/14/2025 prochlorperazine (COMPAZINE) injection 10 mg 1 06/14/2025 prochlorperazine (COMPAZINE) suppository 25 mg 1 06/14/2025 prochlorperazine (COMPAZINE) tablet 10 mg 1 06/14/2025 sodium chloride 0.9 % infusion 1 06/14/2025 Nursing Count Last Ordered Date First Orde red Date BLADDER SCAN 1 06/14/2025 VITAL SIGNS 1 06/14/2025 Respiratory Care Count Last Ordered Date First Ordered Date OXYGEN THERAPY, ADULT 1 06/14/2025 Admission Count Last Ordered Date First Orde red Date ADMIT TO INPATIENT 1 06/14/2025 Transfer Count Last Ordered Date First Orde red Date ED TO FLOOR BED REQUEST 1 06/14/2025 Discharge Count Last Ordered Date First Orde red Date DISCHARGE PATIENT 1 06/16/2025 documented in this encounter Additional Health Concerns Infection Onset Date Last Indicated Resolved Time Respiratory Rule-Out 06/14/2025 06/14/2025 025 3:06 AM EDT COVID-19 Rule-Out 06/14/2025 06/14/2025 06/14/2025 3:06 AM EDT Assessment Noted Time PHQ-9 Depression Total Score: 0 12/07/19 25 11:27 AM EDT documented as of this encounter Care Teams Production Support Specialist Relationship Specialty Start Date End Date Jagruti Cardenas MD [address] [place] [address] PCP - General 05/19/1994 documented as of this encounter
--- NOTE | 2025-06-21 13:33 | A.OFFVIS_ITS ---
VS Expanded 06/21/25 13:34 Height 5 ft 8 in Weight 172 lb 6.424 oz BMI 26.2 Intake Visit Reasons: PreDM Nutrition Presentation Details: Pt presents for MNT f/u for PreDM Pt reports he has a glucometer but does not monitor his BG Pt reports working on reducing on pastries Assessment & Plan Assessment & Plan (1) Prediabetes: Comment: A1c at 6.5% on 03/2025, CKD stage 4 Code(s): R73.03 - Prediabetes Category: Medical Plan: Wt: 79 Kg ( 05/15 ), 78kg(07/15) Est kcal needs as per MSJ: 1800 (40% carb, 30% protein/fat) Est fluid needs as per 25-30 ml/d: 2400 Est prot per day as per 1 g/kg bw: 80 Recommend fiber intake : 8-10 g per day and gradually increase to 25-28 g per day for women and 35-38 g for men or as tolerated Recommend sodium intake per day : less than 2000 mg Educated patient on: ( R = reviewed V = verbalizes understanding N/R = needs review N/A = not applicable * Food sources of carbohydrate, adequate serving sizes and its role in various health conditions: R * Differences between complex carbohydrates a simple carbohydrates, role of fiber in diet: R * Lean protein sources of foods: R * Differences between types of fats and role in diet (mono on saturated fat fatty acids, saturated fatty acids, trans fats): R * Food sources of sodium in salt and healthy modifications for heart health in kidney health: R * Vitamins and minerals: R V N/R * Healthy plate method concept: R, V * Physical activity: Benefits a precaution: R * Hypoglycemia protocol (rule of 15): R V N/R * Dietary prevention of Hyperglycemia: R Patient Instructions: Have a fruit in place of pastries Include fish at least twice a week following healthy plate method Coding Level of Care Code Nutr Indiv Subseq (61033) Diagnoses Prediabetes R73.03 Time Spent (min) 30
[2025-06-21 13:34] VITALS: BMI 26.2
--- OUTSIDE RECORDS SUMMARY | 2025-06-21 14:32 | XMS_ITS | Clinical Summary ---
Author Organization [address] Address [address] [place] [phone] Phone Care Team Providers Care Stave Machine Tender Name Role Phone Jagruti Cardenas MD Primary Care Provider [phone] Allergies No known active allergies Medications fluticasone [...] inhaler, assist devices (BREATHERITE MDI SPACER MISC) SPACER/AERO-HO LDING CHAMBERS (BREATHERITE CECILIA SPACER ADULT) MISC 1 [...] day. 360 capsule 1 04/19/20 25 Active gabapentin (NEURONTIN) 100 mg capsule Take 2 capsules (200 mg total) by mouth 2 (two) times a day. 180 capsule 1 04/17/20 25 Active methocarbamoL (ROBAXIN) 750 mg tabletIndicati ons:Muscle spasm TAKE 1 TABLET BY MOUTH AT BEDTIME NEEDED (MUSCLE SPASM, WILL CAUSE SEDATION). 30 tablet 05/02/20 25 Active amLODIPine (NORVASC) 5 mg tabletIndicati ons:hypertensi on Take 1.5 tablets (7.5 mg total) by mouth 1 (one) time each day. 45 each 5 06/16/20 25 026 Active cefpodoxime (VANTIN) 200 mg tablet Take 1 tablet (200 mg total) by mouth 1 (one) time each day for 8 days. 8 each 06/16/20 25 025 Active amLODIPine (NORVASC) 5 mg tablet Take 1 tablet (5 mg total) by mouth 1 (one) time each day. 90 each 1 04/17/20 25 025 Discontinued predniSONE (DELTASONE) 20 mg tablet Take 2 tablets (40 mg total) by mouth 1 (one) time each day for 3 doses. 6 each 06/17/20 25 Active Problems Problem Noted Date Diagnosed Date Urinary tract infection 06/14/2025 CKD (chronic kidney disease) stage 4, GFR 15-29 ml/min (CMS/HCC V24, CMS/HCC V28) 11/16/2024 Gastroesophageal reflux dise ase with esophagitis without hemorrhage 08/28/2023 Assessment & Plan (08/15/2024 4:21 PM EST): He will continue famotidine for his GERD. Leg hematoma, left, sequela 03/23/2023 Overview (07/04/2024): after right fem to popliteal bypass, by Dr. Juan LAWSON (peripheral vascular dis ease) with claudication ([facility] V24) 01/24/2022 Overview (07/04/2024): Dr. Moore- failed grafting, anticoagulation dc'd Pure hypercholesterolemia 09/29/2012 Assessment & Plan (08/15/2024 4:21 PM EST): His LDL is less than 60. Orders: Complete blood count; Future Thyroid stimulating hormone; Future Hemoglobin A1c; Future 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 Overview (07/04/2024): Per pul note 2010, in the 70' Allergic rhinitis 11/25/2010 Asthmatic bronchitis , chronic ([facility] V24, [facility] V28) 11/25/2010 Disorder of kidney and ureter 04/07/2007 Overview (07/04/2024): CREATININE USUALLY AROUND 2.0, follows with Dr. Benji MAY update Chronic hepatitis ([facility] V24, [facility] V28) 11/2004 Overview (07/04/2024): hepatitis C by history. But serology test (-) 2010 Depression 06/23/2005 Essential hypertension, benign 04/25/2005 Assessment & Plan (08/15/2024 4:21 PM EST): He will continue on amlodipine for management of hypertension. Will follow renal function. Patient has upcoming follow-up with nephrology. Hyperpotassemia 12/09/2004 Resolved Problems Problem Noted Date Diagnosed Date Resolved Date Fever 06/14/2025 06/16/2025 Controlled type 2 diabetes leland ho with chronic kidney disease, without long-term current use of insulin ([facility] V24, [facility] V28) 08/25/2017 08/15/2024 CKD (chronic kidney disease) stage 3, GFR 30-59 ml/min ([facility] V24, [facility] V28) 09/13/2015 11/16/2024 Overview (07/04/2024): Follows with [...] Encounters Date Type Department Care Team Description 06/21/2025 Telephone Adult Medicine [address] [phone] Jagruti Cardenas MD 06/14/2025 12:54 AM EDT - 06/16/2025 1:48 PM EDT Hospital Encounter [facility]mediate Care Unit [address] [place] [address] Roberto Peguero MD Jones, Christopher, MD Shah, Princy, MD Zipagan, David Calero MD Urinary tract infection without hematuria, site unspecified (Primary Dx); Lightheadedness; NSTEMI (non-ST elevated myocardial infarction) ([facility] V24, [facility] V28); Dizziness; Essential hypertension, benign; CKD (chronic kidney disease) stage 4, GFR 15-29 ml/min ([facility] V24, [facility] V28); Fever, unspecified fever cause Discharge Disposition: Home-Health Care [facility] 05/25/2025 11:00 AM EDT Office Visit Orthopedic Surgery [facility] [address] [phone] Neville Jacome DPM PVD (peripheral vascular disease) ([facility] V24) (Primary Dx); Metatarsalgia of left foot; Hammertoes of both feet; Dermatophytosis, nail 04/17/2025 9:45 AM EDT Office Visit Adult Medicine [address] [phone] Jagruti Cardenas MD Pre-diabetes (Primary Dx); CKD (chronic kidney disease) stage 4, GFR 15-29 ml/min ([facility] V24, [facility]/HCC V28); Essential hypertension, benign; Postprocedural male urethral stricture; History of prostate cancer from Last 3 Months Immunizations Immunization Administration Dates Next Due Influenza Quadravalent, MDCK , 0.5ml, preservative free (Flucelvax) 6mo and older 10/01/2018 Influenza Quadravalent, MDCK , 0.5ml, with preservative (Flucelvax) 6mo and older 08/21/2017 Influenza trivalent, 0.5mL ( Fluad) 65yo and older 06/26/2023,06/03/2022,07/02/2021,06/21 Influenza trivalent, 0.5mL, preservative free (Fluarix; FluLaval; Fluzone) ages 6mo and older (Afluria) 3 years and older 05/30/2016,06/12/2015,07/05/2014,07/11,06/06/2012,07/08/2011,07/28/2005 Influenza, Unspecified 07/05/2019 Mobilitus SARS-CoV-2 COVID-19, mRNA, LNP-S, preservative free 07/22/2021 [...] NOMO KNEE ARTHROSCOPY W/ DEBRIDEMENT 12/03/04 PROCEDURE: NH ARTHRS KNEE DEBRIDEMENT/SHAVING ARTCLR CRTLG; COMMENT: L knee OTHER SURGICAL HISTORY PROCEDURE: NH CYSTOURETHROSCOPY INSERTION PERM URETHRAL STENT OTHER SURGICAL [...] (benign) of prostate Chronic hepatitis, unspecifi ed ([facility] V24, [facility] V28) DX:Chronic hepatitis, unspe cified (HCC); COMMENT: hepatitis C Personal history of alcoholi sm ([facility] V24, [facility] V28) DX:Personal history of alco holism (HCC) Personal history of malignan t neoplasm of prostate DX:Personal history of malig nant neoplasm of prostate Cellulitis and abscess of or al soft tissues DX:Cellulitis and abscess of oral soft tissues; COMMENT: septic arthritis L knee Peripheral vascular disease, unspecified ([facility] V24) 04/07/2007 DX:Peripheral vascular disea se, unspecified ([facility]) Unspecified disorder of kidn ey and ureter 04/07/2007 DX:Unspecified disorder of k idney and ureter; COMMENT: CREATININE USUALLY AROUND 2.0 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 DX:Positive PPD Pure hypercholesterolemia 09/29/2012 DX:Pur e hypercholesterolemia Hyperglycemia 06/05/2014 DX:Hyperglycemia CKD (chronic kidney disease) stage 3, GFR 30-59 ml/min ([facility] V24, [facility] V28) 09/13/2015 DX:CKD (chronic kidney disea se) stage 3, GFR 30-59 ml/min ([facility]); COMMENT: Follows with Dr. Leblanc Controlled type 2 diabetes m ellitus with chronic kidney disease, without long-term current use of insulin ([facility] V24, [facility] V28) 08/25/2017 Family History Medical History Relation [...] 0.5 61.7 Started: 09/21/1961 Smokeless Tobacco: Never Tobacco Cessation:Ready [...] Record ed Within the last 3 months, tj oakes many times did you visit the emergency [...] care for your loved ones. For example, housekeeper child care or elderly care for an older adult? [...] Mass Index 26.45 06/14/2025 10:55 AM EDT Plan of Treatment Upcoming Encounters Date Type Department Care Team (Late st Contact Info) Description 07/17/2025 9:15 AM EDT Appointment [facility] CT Scan [address] [place] [address] 07/27/2025 10:45 AM EST Office Visit Orthopedic Surgery - [place] [address] [facility] [address] [place] [phone] Neville Jacome, LEVI [address] [address] 08/10/2025 1:15 PM EST Office Visit Adult Medicine [facility] [address] [place] [phone] Jagruti Cardenas MD [address] [place] [address] Health Maintenance Due Date Last Done Comments Diabetes: Annual Retina Eye Exam 1955 Hepatitis A Vaccines (1 of 2 - Risk 2-dose series) 1966 Hepatitis B Vaccines (1 of 3 - Risk 3-dose series) 2007 Zoster Vaccines (1 of 2) 05/25/2012 03/30/2012 RSV Immunization Adult Patients (1 - 1-dose 75+ series) 2022 Medicare Annual Wellness Visit 08/27/2024 08/27/2023 Diabetes: Annual Foot Exam 08/28/2024 08/28/2023 COVID-19 Vaccine ( season) 2025 06/26/2023, 07/22/2021, 01/13/2021, Additional history exists Influenza Vaccine (#1) 2025 , 06/26/2023, 06/03/2022, Additional history exists Lung Cancer Screening (Low Dose CT) 07/18/2025 07/18/2024, 07/15/2023, 07/14/2022, Additional history exists Diabetes: Annual Urine Albumin-Creatinine Ratio (uACR) 08/09/2025 08/09/2024, 11/06/2022 Social Influencers of Health Screening 08/12/2025 08/12/2024 Diabetes: Blood Sugar Control Test (HGBA1C) 10/11/2025 04/10/2025, 04/04/2025, 12/08/2024, Additional history exists Diabetes: Annual GFR (Glomerular Filtration Rate) 06/16/2026 06/16/2025, 06/15/2025, 06/14/2025, Additional history exists Falls Risk Assessment 06/16/2026 06/16/2025, 024 Hypertension/CHF/CAD Annual BMP Blood Test 06/16/2026 06/16/2025, 06/15/2025, 06/14/2025, Additional history exists Cholesterol Screening (Lipid Panel) 06/15/2030 06/15/2025, 08/08/2024, 08/24/2023 DTaP,Tdap,and Td Vaccines (3 - Td or Tdap) 08/27/2033 08/27/2023, 08/03/2012 Hepatitis C Screening Completed 09/16/2011 Pneumococcal Vaccine: 50+ Years Completed 06/26/2023, 10/01/2018, 01/07/2017, Additional history exists Depression Screening Completed 12/06/2024, 08/27/20 HIB Vaccines Aged Out No longer eligi [...] Comments ECG OUTSIDE 06/17/2025 ECG ANNOTATED 06/17/2025 LAVENDER - EDTA Routine 06/16/2025 5:31 AM EDT EXTRA TUBES Routine 06/16/2025 5:31 AM EDT BASIC METABOLIC PANEL Timed 06/16/2025 5:31 AM EDT MAGNESIUM Timed 06/16/2025 5:31 AM EDT PHOSPHORUS Timed 06/16/2025 5:31 AM EDT SODIUM, URINE, RANDOM STAT 06/15/2025 11:53 PM EDT CREATININE, URINE, RANDOM Routine 06/15/2025 11:53 PM EDT PROTEIN, URINE, RANDOM Routine 06/15/2025 11:53 PM EDT TROPONIN I HIGH SENSITIVITY Routine 06/15/2025 7:05 AM EDT CBC WITH AUTO DIFFERENTIAL Routine 06/15/2025 7:05 AM EDT COMPLETE BLOOD COUNT Timed 06/15/2025 7:05 AM EDT LIPID PANEL WITH REFLEX TO DIRECT LDL Routine 06/15/2025 7:05 AM EDT CBC AND DIFFERENTIAL [...] PM EDT ARTERIAL BLOOD GAS Routine 06/14/2025 11:59 AM EDT OXYGEN THERAPY, ADULT Routine 06/14/2025 11:39 AM EDT XR CHEST 1 VIEW STAT 06/14/2025 11:32 AM EDT CREATINE KINASE AND CKMB Routine 06/14/2025 11:09 AM EDT TROPONIN I HIGH SENSITIVITY STAT 06/14/2025 11:09 AM EDT LAVENDER - EDTA Routine 06/14/2025 11:05 AM EDT EXTRA TUBES Routine 06/14/2025 11:05 AM EDT TRANSTHORACIC ECHOCARDIOGRAM (TTE) COMPLETE W/ CONTRAST Routine 06/14/2025 10:56 AM EDT Urinary tract infection without hematuria, site unspecified NSTEMI (non-ST elevated myocardial infarction) (CMS/HCC V24, CMS/HCC V28) Dizziness Essential hypertension, benign CKD (chronic kidney disease) stage 4, GFR 15-29 ml/min (CMS/HCC V24, CMS/HCC V28) Fever, unspecified fever cause ECG 12-LEAD STAT 06/14/2025 4:46 AM EDT TROPONIN I HIGH SENSITIVITY STAT 06/14/2025 3:44 AM EDT RESPIRATORY VIRUS PANEL MOLECULAR STUDY STAT 06/14/2025 3:44 AM EDT [place] URINE CULTURE TUBE STAT 06/14/2025 3:39 AM EDT URINALYSIS WITH REFLEX MICROSCOPIC AND CULTURE STAT 06/14/2025 3:39 AM EDT URINALYSIS WITH REFLEX MICROSCOPIC AND CULTURE STAT 06/14/2025 3:39 AM EDT CULTURE URINE STAT 06/14/2025 3:39 AM EDT ECG 12-LEAD STAT 06/14/2025 3:[address] HEAD WO CONTRAST STAT 06/14/2025 2 :17 AM EDT CULTURE BLOOD STAT 06/14/2025 1:44 AM EDT [id number], RSV, FLU A AND B QUALITATIVE RT-PCR, INTERNAL LAB STAT 06/14/2025 1:44 AM EDT CREATINE KINASE AND CKMB Add-On 06/14/2025 1:39 AM EDT PROCALCITONIN STAT 06/14/2025 1:39 AM EDT SEDIMENTATION RATE STAT 06/14/2025 1: 39 AM EDT LACTATE, WITH REFLEX STAT 06/14/2025 1:39 AM EDT CBC WITH AUTO DIFFERENTIAL STAT 06/14/2025 1:39 AM EDT B-TYPE NATRIURETIC PEPTIDE STAT 06/14/2025 1:39 AM EDT COMPREHENSIVE METABOLIC PANEL STAT 06/14/2025 1:39 AM EDT CBC AND DIFFERENTIAL STAT 06/14/2025 1:39 AM EDT TROPONIN I HIGH SENSITIVITY STAT 06/14/2025 1:39 AM EDT XR CHEST 1 VIEW STAT 06/14/2025 1:30 AM EDT BLOOD CULTURE PATHOGENS BY PCR Routine 06/14/2025 1:28 AM EDT CULTURE BLOOD STAT 06/14/2025 1:28 AM EDT ECG 12-LEAD Routine 06/14/2025 1:21 AM EDT BUN Routine 06/07/2025 9:44 AM EDT CKD (chronic kidney disease) stage 4, GFR 15-29 ml/min (CMS/HCC V24, CMS/HCC V28) Essential hypertension, benign Pure hypercholesterolemia CREATININE, SERUM Routine 06/07/2025 9:4 4 AM EDT CKD (chronic kidney disease) stage 4, GFR 15-29 ml/min (CMS/HCC V24, CMS/HCC V28) Essential hypertension, benign Pure hypercholesterolemia ELECTROLYTE PANEL Routine 06/07/2025 9:4 4 AM EDT CKD (chronic kidney disease) stage 4, GFR 15-29 ml/min (CMS/HCC V24, CMS/HCC V28) Essential hypertension, benign Pure hypercholesterolemia PROTEIN AND CREATININE WITH RATIO, URINE Routine 06/07/2025 9:44 AM EDT CKD (chronic kidney disease) stage 4, GFR 15-29 ml/min (CMS/HCC V24, CMS/HCC V28) Essential hypertension, benign Pure hypercholesterolemia PARATHYROID HORMONE INTACT Routine 06/07/2025 9:44 AM EDT CKD (chronic kidney disease) stage 4, GFR 15-29 ml/min (CMS/HCC V24, CMS/HCC V28) Chronic hepatitis (CMS/HCC V24, CMS/HCC V28) Gastroesophageal reflux disease with esophagitis without hemorrhage Essential hypertension, benign Prediabetes COMPLETE BLOOD COUNT Routine 04/10/2025 11:21 AM EDT CKD (chronic kidney disease) stage 4, GFR 15-29 ml/min (CMS/HCC V24, CMS/HCC V28) Chronic hepatitis (CMS/HCC V24, CMS/HCC V28) Gastroesophageal reflux disease with esophagitis without hemorrhage Essential hypertension, benign Prediabetes COMPREHENSIVE METABOLIC PANEL Routine 04/10/2025 11:21 AM EDT CKD (chronic kidney disease) stage 4, GFR 15-29 ml/min (CMS/HCC V24, CMS/HCC V28) Chronic hepatitis (CMS/HCC V24, CMS/HCC V28) Gastroesophageal reflux disease with esophagitis without hemorrhage Essential hypertension, benign Prediabetes HEMOGLOBIN A1C Routine 04/10/2025 11:21 AM EDT CKD (chronic kidney disease) stage 4, GFR 15-29 ml/min (CMS/HCC V24, CMS/HCC V28) Chronic hepatitis (CMS/HCC V24, [facility] V28) Gastroesophageal reflux disease with esophagitis without hemorrhage Essential hypertension, benign Prediabetes MICROALBUMIN CREATININE URINE RATIO Routine 08/09/2024 10:53 AM EST PVD (peripheral vascular disease) with claudication ([facility] V24) Allergic rhinitis Essential hypertension, benign Asthmatic bronchitis , chronic ([facility] V24, [facility] V28) Chronic hepatitis ([facility] V24, [facility] V28) Gastroesophageal reflux disease with esophagitis without hemorrhage CKD (chronic kidney disease) stage 3, GFR 30-59 ml/min ([facility] V24, [facility] V28) Controlled type 2 diabetes mellitus with chronic kidney disease, without long-term current use of insulin ([facility] V24, [facility] V28) Disorder of kidney and ureter Leg hematoma, left, sequela Pure hypercholesterolemia Hyperpotassemia Positive PPD Depression CT LUNG SCREENING LOW DOSE Routine 07/18/2024 9:12 AM EDT Personal history of nicotine dependence FALLS RISK ASSESSMENT Routine 05/12/2024 DIABETES FOOT EXAM Routine 08/28/2023 DEPRESSION SCREENING Routine 08/27/2023 HEPATITIS C SCREENING Routine 09/16/2011 from Last 3 Months or Most Recently Relevant to Health Maintenance Results * ECG-Outside (06/17/2025) us Provider Onbase MD ECG ORDERABLES Final Result * ECG-Annotated (06/17/2025) Only the most recent of2 resultswithin the time period is included. us Provider Onbase MD ECG ORDERABLES Final Result * Lavender tube (06/16/2025 5:31 AM EDT) Only the most recent of2 resultswithin the time period is included. Extra Tube Hold for add-ons. 06/16/2025 8:01 AM EDT [facility] Comment:Auto resulted. Blood Venous blood specimen / Unknown Venipuncture / Unknown 06/16/2025 5:31 AM EDT 06/16/2025 6:12 AM EDT us Jaspreet Ledesma MD LAB BLOOD ORDERABLES Final Resul t Performing Organization Address City/[facility]/ZIP Co de Phone Number [facility] [address] [place] [address], [place] [phone] * Phosphorus (06/16/2025 5:31 AM EDT) Phosphorus 3.4 2.5 - 4.5 mg/dL LAB CHEMISTRY METHOD 06/16/2025 6:50 AM EDT [facility] Blood Venous blood specimen / Unknown Venipuncture / Unknown 06/16/2025 5:31 AM EDT 06/16/2025 6:10 AM EDT us Jaspreet Ledesma MD LAB BLOOD ORDERABLES Final Resul t Performing Organization Address [facility]/ZIP Co de Phone Number [facility] [address] [place] [address], [place] [phone] * Magnesium (06/16/2025 5:31 AM EDT) Magnesium 2.2 1.9 - 2.6 mg/dL LAB CHEMISTRY METHOD 06/16/2025 6:50 AM EDT [facility] Blood Venous blood specimen / Unknown Venipuncture / Unknown 06/16/2025 5:31 AM EDT 06/16/2025 6:10 AM EDT us Jaspreet Ledesma MD LAB BLOOD ORDERABLES Final Resul t Performing Organization Address City/[facility]/ZIP Co de Phone Number [facility] [address] [place] [address], [place] [phone] * (ABNORMAL) Basic metabolic panel (06/16/2025 5:31 AM EDT) Only the most recent of2 resultswithin the time period is included. Sodium 139 133 - 145 mmol/L LAB CHEMISTRY METHOD 06/16/2025 6:50 AM [facility] Potassium 3.9 3.5 - 5.5 mmol/L LAB CHEMISTRY METHOD 06/16/2025 6:50 AM [facility] Chloride 107 96 - 110 mmol/L LAB CHEMISTRY METHOD 06/16/2025 6:50 AM [facility] CO2 24 21 - 32 mmol/L LAB CHEMISTRY METHOD 06/16/2025 6:50 AM [facility] Anion Gap 8 3 - 11 LAB CHEMISTRY METHOD 06/16/2025 6:50 AM [facility] Glucose 170(H) 70 - 100 mg/dL LAB CHEMISTRY METHOD 06/16/2025 6:50 AM [facility] BUN 63(H) 5 - 25 mg/dL LAB CHEMISTRY METHOD 06/16/2025 6:50 AM [facility] Creatinine 2.57(H) 0.70 - 1.30 mg/dL LAB CHEMISTRY METHOD 06/16/2025 6:50 AM [facility] eGFR 25(L) >=60 mL/min/1. 73m2 LAB CHEMISTRY METHOD 06/16/2025 6:50 AM [facility] Comment:Calculation based on the Chronic Kidney Disease Epidemiology Collaboration (CKD-EPI) equation refit without adjustment for race. BUN/Creatinine Ratio 24.5 LAB CHEMISTRY METHOD 06/16/2025 6:50 AM [facility] Calcium 8.8 8.5 - 10.5 mg/dL LAB CHEMISTRY METHOD 06/16/2025 6:50 AM [facility] Blood Venous blood specimen / Unknown Venipuncture / Unknown 06/16/2025 5:31 AM EDT 06/16/2025 6:10 AM EDT us Jaspreet Ledesma MD LAB BLOOD ORDERABLES Final Resul t Performing Organization Address [facility]/ZIP Co de Phone Number [facility] [address] [place] [address], [place] [phone] * Sodium, urine, random (06/15/2025 11:53 PM EDT) Sodium, Ur 18 mmol/L LAB CHEMISTRY METHOD 06/16/2025 1:10 AM EDT [facility] Urine Urine specimen from urethra / Unknown Non-blood Collection / Unknown 06/15/2025 11:53 PM EDT 06/16/2025 12:24 AM EDT us Jaspreet Ledesma MD LAB URINE ORDERABLES Final Resul t Performing Organization Address [facility] Co de Phone Number [facility] [address] [place] [address], [place] [phone] * Protein, urine, random (06/15/2025 11:53 PM EDT) Protein, Urine 95 mg/dL LAB CHEMISTRY METHOD 06/16/2025 1:05 AM EDT [facility] Urine Urine specimen obtained by clean catch procedure / Unknown Non-blood Collection / Unknown 06/15/2025 11:53 PM EDT 06/16/2025 12:24 AM EDT us Bharti Garcia NP LAB URINE ORDERABLES Final Res ult Performing Organization Address [facility]/ZIP Co de Phone Number [facility] [address] [place] [address], [place] [phone] * Creatinine, urine, random (06/15/2025 11:53 PM EDT) Creatinine, Urine 66.0 mg/dL LAB CHEMISTRY METHOD 06/16/2025 1:10 AM EDT [facility] Urine Urine specimen from urethra / Unknown Non-blood Collection / Unknown 06/15/2025 11:53 PM EDT 06/16/2025 12:24 AM EDT Bharti Garcia NP LAB URINE ORDERABLES Final Res ult Performing Organization Address [facility]/ZIP Co de Phone Number [facility] [address] [place] [address], [place] [phone] * (ABNORMAL) Troponin I high sensitivity (06/15/2025 7:05 AM EDT) Only the most recent of4 resultswithin the time period is included. Pathologist [facility] High Sensitivity Troponin I 95(H) <=79 ng/L LAB CHEMISTRY METHOD 06/15/2025 8:47 AM EDT [facility] Blood Venous blood specimen / Unknown Venipuncture / Unknown 06/15/2025 7:05 AM EDT 06/15/2025 7:20 AM EDT Narrative [facility] - 06/15/2025 8:47 AM EDT High levels of biotin in samples may falsely decrease hsTroponin values. Use caution when interpreting hsTroponin results in patients taking biotin who exhibit renal impairment (eGFR <60) or in patients taking more than 20 mg/day of biotin. Rich Dia MD LAB BLOOD ORDERABLES Final Result Performing Organization Address City/[facility]/ZIP Co de Phone Number [facility] [address] [place] [address], [place] [phone] * (ABNORMAL) Lipid panel with reflex to direct LDL (06/15/2025 7:05 AM EDT) Cholesterol 80 0 - 200 mg/dL LAB CHEMISTRY METHOD 06/15/2025 8:41 AM EDT [facility] Triglycerides 106 0 - 150 mg/dL LAB CHEMISTRY METHOD 06/15/2025 8:41 AM EDT [facility] HDL 14(L) >=40 mg/dL LAB CHEMISTRY METHOD 06/15/2025 8:41 AM EDT [facility] LDL Calculated 45 0 - 100 mg/dL LAB CHEMISTRY METHOD 06/15/2025 8:41 AM EDT [facility] Comment:Estimated LDL Calcul ated using equation: Total cholesterol - HDL cholesterol - (Triglycerides/5) VLDL Cholesterol Baltazar 21.2 mg/dL LAB CHEMISTRY METHOD 06/15/2025 8:41 AM EDT [facility] Non HDL Chol. (LDL+VLDL) 66 <145 mg/dL LAB [facility]STR[facility] Chol/HDL Ratio 5.7(H) 0.0 - 4.4 LAB CHEMISTRY METHOD 06/15/2025 8:41 AM [facility] Blood Venous blood specimen / Unknown Venipuncture / Unknown 06/15/2025 7:05 AM EDT 06/15/2025 7:20 AM EDT Bharti Garcia FIELD PROPERTY LOSS SPECIALIST LAB BLOOD ORDERABLES Final Res ult [facility] [address] [place] [address], * (ABNORMAL) CBC auto differential (06/15/2025 7:05 AM EDT) Only the most recent of2 resultswithin the time period is included. WBC 6.8 4.8 - 10.8 K/[facility] LAB HEMETOLOGY METHOD 06/15/2025 7:34 AM [facility] RBC 3.70(L) 4.50 - 5.50 M/[facility] LAB HEMETOLOGY METHOD 06/15/2025 7:34 AM EDT [facility] Hemoglobin 10.7(L) 13.5 - 17.5 g/dL LAB HEMETOLOGY METHOD 06/15/2025 7:34 AM [facility] Hematocrit 32.5(L) 42.0 - 54.0 % LAB HEMETOLOGY METHOD 06/15/2025 7:34 AM [facility] MCV 89.0 79.0 - 98.0 FL LAB HEMETOLOGY METHOD 06/15/2025 7:34 AM [facility] MCH 29.3 27.0 - 32.0 pcg LAB HEMETOLOGY METHOD 06/15/2025 7:34 AM [facility] MCHC 32.9 32.0 - 37.0 g/dL LAB HEMETOLOGY METHOD 06/15/2025 7:34 AM [facility] RDW 13.5 11.0 - 15.0 % LAB HEMETOLOGY METHOD 06/15/2025 7:34 AM [facility] Platelets 163 130 - 400 K/mcL LAB HEMETOLOGY METHOD 06/15/2025 7:34 AM [facility] MPV 12.0(H) 7.0 - 11.0 FL LAB HEMETOLOGY METHOD 06/15/2025 7:34 AM [facility] NRBC 0.0 <1.0 % LAB HEMETOLOGY METHOD 06/15/2025 7:34 AM [facility] NRBC Absolute 0.00 <0.10 K/mcL LAB HEMETOLOGY METHOD 06/15/2025 7:34 AM [facility] Neutrophils Relative 90.1 % LAB HEMETOLOGY METHOD 06/15/2025 7:34 AM [facility] Lymphocytes Relative 6.4 % LAB HEMETOLOGY METHOD 06/15/2025 7:34 AM [facility] Monocytes Relative 2.8 % LAB HEMETOLOGY METHOD 06/15/2025 7:34 AM EDT [facility] Eosinophils Relative 0.0 % LAB HEMETOLOGY METHOD 06/15/2025 7:34 AM [facility] Basophils Relative 0.1 % LAB HEMETOLOGY METHOD 06/15/2025 7:34 AM [facility] Immature Granulocytes Relative 0.6 % LAB HEMETOLOGY METHOD 06/15/2025 7:34 AM EDT [facility] Neutrophils Absolute 6.15 1.50 - 7.00 K/mcL LAB HEMETOLOGY METHOD 06/15/2025 7:34 AM EDT [facility] Lymphocytes Absolute 0.44(L) 1.00 - 5.00 K/mcL LAB [facility]EMETOLOGY [facility] Monocytes Absolute 0.19(L) 0.20 - 1.00 K/mcL LAB HEMETOLOGY METHOD 06/[facility] 7[facility] Eosinophils Absolute 0.00 0.00 - 0.50 K/mcL LAB HEMETOLOGY METHOD 06/15/2025 7:34 AM [facility] Basophils Absolute 0.01 0.00 - 0.20 K/mcL LAB HEMETOLOGY METHOD 06/15/2025 7:34 AM [facility] Immature Granulocytes Absolute 0.04(H) 0.00 - 0.03 K/mcL LAB HEMETOLOGY METHOD 06/15/2025 7:34 AM T [facility] Blood Venous blood specimen / Unknown Venipuncture / Unknown 06/15/2025 7:05 AM EDT 06/15/2025 7:21 AM EDT us Rich Dia MD LAB BLOOD ORDERABLES Final Result [facility] [address] [place] [address], * (ABNORMAL) CBC - Every 3 Days (06/15/2025 7:05 AM EDT) Only the most recent of2 resultswithin the time period is included. WBC 6.8 4.8 - 10.8 K/mcL LAB HEMETOLOGY METHOD 06/15/2025 7:34 AM [facility] RBC 3.70(L) 4.50 - 5.50 M/mcL LAB HEMETOLOGY METHOD 06/15/2025 7:34 AM [facility] Hemoglobin 10.7(L) 13.5 - 17.5 g/dL LAB HEMETOLOGY METHOD 06/15/2025 7:34 AM [facility] Hematocrit 32.5(L) 42.0 - 54.0 % LAB HEMETOLOGY METHOD 06/15/2025 7:34 AM [facility] MCV 89.0 79.0 - 98.0 FL LAB HEMETOLOGY METHOD 06/15/2025 7:34 AM [facility] MCH 29.3 27.0 - 32.0 pcg LAB HEMETOLOGY METHOD 06/15/2025 7:34 AM [facility] MCHC 32.9 32.0 - 37.0 g/dL LAB HEMETOLOGY METHOD 06/15/2025 7:34 AM [facility] RDW 13.5 11.0 - 15.0 % LAB HEMETOLOGY METHOD 06/15/2025 7:34 AM [facility] Platelets 163 130 - 400 K/mcL LAB HEMETOLOGY METHOD 06/15/2025 7:34 AM [facility] MPV 12.0(H) 7.0 - 11.0 FL LAB HEMETOLOGY METHOD 06/15/2025 7:34 AM [facility] NRBC 0.0 <1.0 % LAB HEMETOLOGY METHOD 06/15/2025 7:34 AM EDT [facility] NRBC Absolute 0.00 <0.10 K/mcL LAB HEMETOLOGY METHOD 06/15/2025 7:34 AM EDT [facility] Blood Venous blood specimen / Unknown Venipuncture / Unknown 06/15/2025 7:05 AM EDT 06/15/2025 7:21 AM EDT us Bharti Garcia FI[employer] PROP[employer] LOSS SPECIALIST LAB BLOOD ORDERABLES Final Res ult [facility] [address] [place] [address], * Vascular US duplex carotid bilateral (06/14/2025 9:38 PM EDT) Anatomical Region Laterality Modality Vascular, Abdomen Ultrasound 06/15/2025 9:19 AM EDT Impressions 06/15/2025 9:21 AM EDT No evidence of hemodynamically significant stenosis. -------- FINAL REPORT -------- Dictated By: Yonis Burris Dictated Date: 06/15/2025 09:19 ET Assigned Physician: Yonis Burris Reviewed and Electronically Signed By: Yonis Burris Signed Date: 06/15/2025 09:21 ET Workstation ID: [id number] Transcribed By: Self Edit Transcribed Date: 06/15/2025 [...] Signed Date: 06/15/2025 09:21 ET Workstation ID: [id number] Transcribed By: Self Edit Transcribed Date: 06/15/2025 09:19 ET us Bharti Garcia NP CV VASCULAR PROCEDURES Final R esult * US Retroperitoneal Complete (06/14/2025 9:38 PM EDT) Anatomical Region Laterality Modality Body Ultrasound 06/15/2025 9:21 AM EDT Impressions 06/15/2025 9:23 AM EDT Normal renal ultrasound. -------- FINAL REPORT -------- Dictated By: Yonis Burris Dictated Date: 06/15/2025 09:21 ET Assigned Physician: Yonis Burris Reviewed and Electronically Signed By: Yonis Burris Signed Date: 06/15/2025 09:23 ET Workstation ID: [id number] Transcribed By: Self Edit Transcribed Date: 06/15/2025 [...] Signed Date: 06/15/2025 09:23 ET Workstation ID: [id number] Transcribed By: Self Edit Transcribed Date: 06/15/2025 09:21 ET us Bharti Garcia NP IMG US PROCEDURES Final Result * MR [...] by: Jayme Cowart MD on 06/14/2025 18:22:10 us Bharti Garcia FIELD PROPERTY LOSS SPECIALIST IMG MRI PROCEDURES Final Resul t * CT [...] Signed Date: 06/14/2025 16:12 ET Workstation ID: [id number] Transcribed By: Self Edit Transcribed Date: 06/14/2025 [...] Signed Date: 06/14/2025 16:12 ET Workstation ID: [id number] Transcribed By: Self Edit Transcribed Date: 06/14/2025 16:07 ET Bharti Garcia FIELD PROPERTY LOSS SPECIALIST IMG CT PROCEDURES Final Result * (ABNORMAL) Arterial blood gas (06/14/2025 11:59 AM EDT) pH, Arterial 7.47(H) 7.35 - 7.45 pH 06/14/2025 12:16 PM EDT [facility] pCO2, Arterial 29(L) 35 - 45 mmHg 06/14/2025 12:16 PM EDT [facility] pO2, Arterial 88 80 - 100 mmHg 06/14/2025 12:16 PM EDT [facility] HCO3, Arterial 23.6 22.0 - 26.0 mmol/L 06/14/2025 12:16 PM EDT [facility] O2 Sat, Arterial 97.6 95.0 - 98.0 % 06/14/2025 12:16 PM EDT [facility] Base Excess, Arterial -1.6 -2.0 - 2.0 mmol/L 06/14/2025 12:16 PM EDT [facility] David Test Pass Pass, Unresponsi ve, Line 06/14/2025 12:16 PM EDT [facility] FIO2 40.00 06/14/2025 12:16 PM EDT [facility] Blood Arterial blood specimen / Unknown Arterial Puncture / Unknown 06/14/2025 11:59 AM EDT 06/14/2025 12:04 PM EDT us Jaspreet Ledesma MD LAB BLOOD ORDERABLES Final Resul t [facility] [address] [place] [address], * XR Chest 1 View (06/14/2025 11:32 AM EDT) Only the most recent of2 resultswithin the time period is included. Anatomical Region Laterality Modality Body Radiographic Angy ging 06/14/2025 11:3 4 AM EDT Impressions 06/14/2025 11:37 AM EDT Possible mild bibasilar atelectasis. -------- FINAL REPORT -------- Dictated By: Yonis Burris Dictated Date: 06/14/2025 11:34 ET Assigned Physician: Yonis Burris Reviewed and Electronically Signed By: Yonis Burris Signed Date: 06/14/2025 11:37 ET Workstation ID: [id number] Transcribed By: Self Edit Transcribed Date: 06/14/2025 [...] Signed Date: 06/14/2025 11:37 ET Workstation ID: [id number] Transcribed By: Self Edit Transcribed Date: 06/14/2025 11:34 ET Jaspreet Ledesma MD IMG XR PROCEDURES Final Result * (ABNORMAL) Creatine kinase and CKMB (06/14/2025 11:09 AM EDT) Only the most recent of2 resultswithin the time period is included. Total CK 365(H) 22 - 269 unit/L LAB CHEMISTRY METHOD 06/14/2025 1:12 PM EDT [facility] CK-MB 1.8 1.0 - 3.6 ng/mL LAB CHEMISTRY METHOD 06/14/2025 1:12 PM EDT [facility] CK-MB Index 0.0 0.0 - 5.0 LAB CHEMISTRY METHOD 06/14/2025 1:12 PM EDT [facility] Blood Venous blood specimen / Unknown Venipuncture / Unknown 06/14/2025 11:09 AM EDT 06/14/2025 11:16 AM EDT us Bharti Garcia NP LAB BLOOD ORDERABLES Final Res ult [facility] [address] [address], [place] [phone] * (ABNORMAL) TRANSTHORACIC ECHOCARDIOGRAM (TTE) COMPLETE W/ CONTRAST (06/14/2025 10:56 AM EDT) Left Atrium Minor Hay 5.3 cm CV PACS Left Atrium Major Hay 6.0 cm CV PACS LA Area Sys [...] Volume 55 mL CV PACS MV Deceleration Crittenden 9.5 m/s2 CV PACS E Wave Deceleration [...] patient in a supine position. Bharti Garcia FIELD PROPERTY LOSS SPECIALIST CV ECHO PROCEDURES Final Resul t * ECG 12 lead (06/14/2025 4:46 AM EDT) Only the most recent of3 resultswithin the time period is included. Ventricular Rate ECG 62 BPM GEMUSE Atrial Rate 62 BPM GEMUSE P-R Interval 144 ms GEMUSE QRS Duration 92 ms GEMUSE Q-T Interval 472 ms GEMUSE QTc 479 ms GEMUSE P Wave Hay 60 degrees GEMUSE R Hay -22 degrees GEMUSE T Hay -10 degrees GEMUSE ECG Interpretation Normal sinus rhythm Nonspecific ST and T wave abnormality Abnormal ECG When compared with ECG of 14-JUN-2025 03:18, (unconfirmed) No significant change was found Confirmed by TOM KIM ([id number]) on 06/15/2025 11:28:32 AM GEMUSE 06/14/2025 4:46 AM EDT 06/15/2025 11:28 AM EDT Hung Mujica MD ECG ORDERABLES Final Resu lt GEMUSE * Respiratory virus panel molecular study (06/14/2025 3:44 AM EDT) Adenovirus Detection by PCR Not Detected Not Detected LAB MICROBIOLOGY METHOD 06/14/2025 4:42 AM EDT [facility] Influenza A PCR Not Detected Not Detected LAB MICROBIOLOGY METHOD 06/14/2025 4:42 AM EDT [facility] Influenza B PCR Not Detected Not Detected LAB MICROBIOLOGY METHOD 06/14/2025 4:42 AM EDT [facility] Coronavirus 229E Not Detected Not Detected LAB MICROBIOLOGY METHOD 06/14/2025 4:42 AM EDT [facility] Coronavirus HKU1 Not Detected Not Detected LAB MICROBIOLOGY METHOD 06/14/2025 4:42 AM EDT [facility] Coronavirus OC43 Not Detected Not Detected LAB MICROBIOLOGY METHOD 06/14/2025 4:42 AM EDT [facility] Coronavirus NL63 Not Detected Not Detected LAB MICROBIOLOGY METHOD 06/14/2025 4:42 AM EDT [facility] Parainfluenza Virus 1 Not Detected Not Detected LAB MICROBIOLOGY METHOD 06/14/2025 4:42 AM EDT [facility] Parainfluenza Virus 2 Not Detected Not Detected LAB MICROBIOLOGY METHOD 06/14/2025 4:42 AM EDT [facility] Parainfluenza Virus 3 Not Detected Not Detected LAB MICROBIOLOGY METHOD 06/14/2025 4:42 AM EDT [facility] Parainfluenza Virus 4 Not Detected Not Detected LAB MICROBIOLOGY METHOD 06/14/2025 4:42 AM EDT [facility] RSV PCR Not Detected Not Detected LAB MICROBIOLOGY METHOD 06/14/2025 4:42 AM EDT [facility] Human Metapneumovirus A and B Not Detected Not Detected LAB MICROBIOLOGY METHOD 06/14/2025 4:42 AM EDT [facility] Rhinovirus/Entero virus Not Detected Not Detected LAB MICROBIOLOGY METHOD 06/14/2025 4:42 AM EDT [facility] Bordetella pertussis Not Detected Not Detected LAB MICROBIOLOGY METHOD 06/14/2025 4:42 AM EDT [facility] Bordetella parapertussis Not Detected Not Detected LAB MICROBIOLOGY METHOD 06/14/2025 4:42 AM EDT [facility] Mycoplasma pneumo by PCR Not Detected Not Detected LAB MICROBIOLOGY METHOD 06/14/2025 4:42 AM EDT [facility] Chlamydia pneumoniae Not Detected Not Detected LAB MICROBIOLOGY METHOD 06/14/2025 4:42 AM EDT [facility] SARS COV-2 Not Detected Not Detected LAB MICROBIOLOGY METHOD 06/14/2025 4:42 AM EDT [facility] Swab Both anterior nares / Unknown Non-blood Collection / Unknown 06/14/2025 3:44 AM EDT 06/14/2025 3:50 AM EDT [facility] - 06/14/2025 4:42 AM EDT Testing was performed using the [employer] Respiratory Pathogen PCR Assay. All results must [...] LAB MICROBIOLOGY - GENERAL ORDERABLES Final Result [facility] [address] [place] [address], * (ABNORMAL) Urinalysis with reflex microscopic and culture (06/14/2025 3:39 AM EDT) Specific [place] Urine 1.021 1.003 - 1.030 LAB URINALYSIS - AUTOMATED METHOD 06/14/2025 4:21 AM [facility] pH, Urine 5.5 5.0 - 8.0 pH LAB URINALYSIS - AUTOMATED METHOD 06/14/2025 4:21 AM [facility] Leukocytes, Urine Moderate(A) Negative LAB URINALYSIS - AUTOMATED METHOD 06/14/2025 4:21 AM [facility] Nitrite, Urine Negative Negative LAB URINALYSIS - AUTOMATED METHOD 06/14/2025 4:21 AM [facility] Protein, Urine 300(A) <=Trace mg/dL LAB URINALYSIS - AUTOMATED METHOD 06/14/2025 4:21 AM [facility] Glucose, Urine Negative Negative mg/dL LAB URINALYSIS - AUTOMATED METHOD 06/14/2025 4:21 AM [facility] Ketones, Urine Trace(A) Negative mg/dL LAB URINALYSIS - AUTOMATED METHOD 06/14/2025 4:21 AM [facility] Urobilinogen , Urine 1.0 0.2 - 1.0 mg/dL LAB URINALYSIS - AUTOMATED METHOD 06/14/2025 4:21 AM [facility] Bilirubin, Urine Negative Negative LAB URINALYSIS - AUTOMATED METHOD 06/14/2025 4:21 AM [facility] Blood, Urine Moderate(A) Negative LAB URINALYSIS - AUTOMATED METHOD 06/14/2025 4:21 AM [facility] RBC, Urine 15.1(H) 0 - 4 /HPF LAB URINALYSIS - AUTOMATED METHOD 06/14/2025 4:21 AM [facility] WBC, Urine 50(H) 0 - 4 /HPF LAB URINALYSIS - AUTOMATED METHOD 06/14/2025 4:21 AM EDT [facility] Squamous Epithelial, Urine 75(H) 0 - 60 /LPF LAB URINALYSIS - AUTOMATED METHOD 06/14/2025 4:21 AM EDT [facility] Bacteria, Urine Negative Negative /HPF LAB URINALYSIS - AUTOMATED METHOD 06/14/2025 4:21 AM EDT [facility] Hyaline Casts, Urine 2 0 - 3 /LPF LAB URINALYSIS - AUTOMATED METHOD 06/14/2025 4:21 AM EDT [facility] Urine Urine specimen obtained by clean catch procedure / Unknown Non-blood Collection / Unknown 06/14/2025 3:39 AM EDT 06/14/2025 3:50 AM EDT Vickie GARCES LAB URINE ORDERABLES Final R esult Performing Organization Address City/[facility]/ZIP Co de Phone Number [facility] [address] [place] [address], [place] [phone] * Camargo urine culture tube (06/14/2025 3:39 AM EDT) Extra Tube Hold for add-ons. 06/14/2025 5:01 AM EDT [facility] Comment:Auto resulted. Urine Urine specimen obtained by clean catch procedure / Unknown Non-blood Collection / Unknown 06/14/2025 3:39 AM EDT 06/14/2025 3:50 AM EDT Vickie GARCES LAB URINE ORDERABLES Final R esult [facility] [address] [place] [address], [place] [phone] * (ABNORMAL) Culture urine (06/14/2025 3:39 AM EDT) Culture, Urine >=100,000 CFU/mL Escherichia coli(A) MACIE 06/16/2025 11:02 AM EDT [facility] Urine Urine specimen obtained by [...] MICROBIOLOGY - GENERAL O RDERABLES Final Result [facility] [address] [place] [address], * CT Head wo Contrast (06/14/2025 2:17 [...] IMG CT PROCEDURES Final Resu lt * [id number], RSV, Influenza A and B qualitative RT-PCR (06/14/2025 1:44 AM EDT) Influenza A PCR Not Detected Not Detected LAB MICROBIOLOGY METHOD 06/14/2025 3:06 AM EDT [facility] Influenza B PCR Not Detected Not Detected LAB MICROBIOLOGY METHOD 06/14/2025 3:06 AM EDT [facility] RSV PCR Not Detected Not Detected LAB MICROBIOLOGY METHOD 06/14/2025 3:06 AM EDT [facility] SARS COV-2 Not Detected Not Detected LAB MICROBIOLOGY METHOD 06/14/2025 3:06 AM EDT [facility] Swab Both anterior nares / Unknown Non-blood Collection / Unknown 06/14/2025 1:44 AM EDT 06/14/2025 2:15 AM EDT Narrative [facility] - 06/14/2025 3:06 AM EDT Disclaimer: Testing was performed using the [employer] GeneXpert Xpress SARS-CoV-2 _Flu_RSV PLUS PCR assay. [...] for Healthcare providers can be found at https://www.fda.gov/media/711828/download. Fact sheet for Healthcare patients can be found at https://www.fda.gov/media/124202/download. Vickie GARCES LAB MICROBIOLOGY - GENERAL O RDERABLES Final Result [facility] [address] [place] [address], * (ABNORMAL) Blood Culture, Peripheral Draw #1 (06/14/2025 1:44 AM EDT) Only the most recent of2 resultswithin the time period is included. [facility] Culture, Blood Escherichia coli(AA) MACIE 06/16/2025 8:23 AM EDT [facility] Comment: Refer to previous culture for susceptibility ; 06/14/25 @ 0128 The organism value for this result has been updated. These results have been appended to the previously preliminary verified report. This is an edited result. Previous organism was Gram negative bacilli on 06/15/2025 at 0813 EDT. Gram Stain Result Aerobic and Anaerobic bottles Gram negative bacilli(AA) 06/16/2025 8:23 AM EDT [facility] Comment: This is an appended [...] O RDERABLES Final Result Performing Organization Address [facility] Co de Phone Number [facility] [address] [place] [address], [place] [phone] * Lactate, with reflex (06/14/2025 1:39 AM EDT) LACTIC ACID 1.3 0.4 - 2.0 mmol/L LAB CHEMISTRY METHOD 06/14/2025 2:49 AM EDT [facility] Blood Venous blood specimen / Unknown Venipuncture / Unknown 06/14/2025 1:39 AM EDT 06/14/2025 2:10 AM EDT Vickie GARCES LAB BLOOD ORDERABLES Final R esult Performing Organization Address [facility]/ZIP Co de Phone Number [facility] [address] [place] [address], [place] [phone] * (ABNORMAL) Procalcitonin (06/14/2025 1:39 AM EDT) Procalcitonin 10.60(H) <=0.16 ng/mL LAB CHEMISTRY METHOD 06/14/2025 9:27 AM EDT [facility] Blood Venous blood specimen / Unknown Venipuncture / Unknown 06/14/2025 1:39 AM EDT 06/14/2025 2:13 AM EDT Narrative [facility] - 06/14/2025 9:27 AM EDT [...] ORDERABLES Final R esult Performing Organization Address City/[facility]/ZIP Co de Phone Number [facility] [address] [place] [address], * (ABNORMAL) Sedimentation rate, automated (06/14/2025 1:39 AM EDT) Sed Rate 42(H) 0 - 20 mm/hr LAB HEMETOLOGY METHOD 06/14/2025 2:49 AM EDT [facility] Blood Venous blood specimen / Unknown Venipuncture / Unknown 06/14/2025 1:39 AM EDT 06/14/2025 2:13 AM EDT Vickie GARCES LAB BLOOD ORDERABLES Final R esult Performing Organization Address City/[facility]/ZIP Co de Phone Number [facility] [address] [place] [address], [place] [phone] * (ABNORMAL) B-type natriuretic peptide (06/14/2025 1:39 AM EDT) Pathologist [facility] BNP 659(H) <=100 pcg/mL LAB CHEMISTRY METHOD 06/14/2025 2:57 AM EDT [facility] Blood Venous blood specimen / Unknown Venipuncture / Unknown 06/14/2025 1:39 AM EDT 06/14/2025 2:13 AM EDT Vickie GARCES LAB BLOOD ORDERABLES Final R esult [facility] [address] [place] [address], [place] [phone] * (ABNORMAL) Comprehensive metabolic panel (06/14/2025 1:39 AM EDT) Only the most recent of2 resultswithin the time period is included. [facility] Sodium 139 133 - 145 mmol/L LAB CHEMISTRY METHOD 06/14/2025 2:56 AM [facility] Potassium 4.0 3.5 - 5.5 mmol/L LAB CHEMISTRY METHOD 06/14/2025 2:56 AM [facility] Chloride 107 96 - 110 mmol/L LAB CHEMISTRY METHOD 06/14/2025 2:56 AM [facility] CO2 24 21 - 32 mmol/L LAB CHEMISTRY METHOD 06/14/2025 2:56 AM [facility] Anion Gap 8 3 - 11 LAB CHEMISTRY METHOD 06/14/2025 2:56 AM [facility] Glucose 145(H) 70 - 100 mg/dL LAB CHEMISTRY METHOD 06/14/2025 2:56 AM [facility] BUN 45(H) 5 - 25 mg/dL LAB CHEMISTRY METHOD 06/14/2025 2:56 AM [facility] Creatinine 3.35(H) 0.70 - 1.30 mg/dL LAB CHEMISTRY METHOD 06/14/2025 2:56 AM [facility] eGFR 18(L) >=60 mL/min/1. 73m2 LAB CHEMISTRY METHOD 06/14/2025 2:56 AM [facility] Comment:Calculation based on the Chronic Kidney Disease Epidemiology Collaboration (CKD-EPI) equation refit without adjustment for race. BUN/Creatinine Ratio 13.4 LAB CHEMISTRY METHOD 06/14/2025 2:56 AM [facility] Calcium 8.9 8.5 - 10.5 mg/dL LAB CHEMISTRY METHOD 06/14/2025 2:56 AM [facility] AST (SGOT) 66(H) 10 - 42 unit/L LAB CHEMISTRY METHOD 06/14/2025 2:56 AM [facility] ALT (SGPT) 40 10 - 60 unit/L LAB CHEMISTRY METHOD 06/14/2025 2:56 AM [facility] Alkaline Phosphatase 117 42 - 121 unit/L LAB CHEMISTRY METHOD 06/14/2025 2:56 AM [facility] Total Protein 6.3 6.0 - 8.0 g/dL LAB CHEMISTRY METHOD 06/14/2025 2:56 AM [facility] Albumin 2.9(L) 3.2 - 5.0 g/dL LAB CHEMISTRY METHOD 06/14/2025 2:56 AM [facility] Total Bilirubin 0.5 0.0 - 1.4 mg/dL LAB CHEMISTRY METHOD 06/14/2025 2:56 AM [facility] Blood Venous blood specimen / Unknown Venipuncture / Unknown 06/14/2025 1:39 AM EDT 06/14/2025 2:13 AM EDT Vickie GARCES LAB BLOOD ORDERABLES Final R esult [facility] [address] [place] [address], [place] [phone] * (ABNORMAL) Blood culture pathogens molecular study (06/14/2025 1:28 AM EDT) Pathologist [facility] Escherichia coli Detected (A) Not Detected LAB MICROBIOLOGY METHOD 06/14/2025 5:28 PM EDT [facility] Blood Venous blood specimen / Unknown Venipuncture / Unknown 06/14/2025 1:28 AM EDT 06/14/2025 2:14 AM EDT Vickie GARCES LAB MICROBIOLOGY - GENERAL O RDERABLES Final Result Performing Organization Address [facility] Co de Phone Number [facility] [address] [place] [address], [place] [phone] * (ABNORMAL) Protein and creatinine with ratio, urine (06/07/2025 9:44 AM EDT) Pathologist [facility] Protein, Urine 76 mg/dL LAB CHEMISTRY METHOD 06/07/2025 12:47 PM EDT [facility] Prot/Creat, Ur 0.95(H) <=0.20 mg/mg creat LAB CHEMISTRY METHOD 06/07/2025 12:47 PM EDT [facility] Creatinine, Urine 80.0 mg/dL LAB CHEMISTRY METHOD 06/07/2025 12:47 PM EDT [facility] Urine Urine specimen obtained by clean catch procedure / Unknown Non-blood Collection / Unknown 06/07/2025 9:44 AM EDT 06/07/2025 9:44 AM EDT Dave Leblanc MD LAB URINE ORDERABLES Final Resu lt Performing Organization Address [facility]/ZIP Co de Phone Number [facility] [address] [place] [address], [place] [phone] * (ABNORMAL) Creatinine (06/07/2025 9:44 AM EDT) Creatinine 2.30(H) 0.70 - 1.30 mg/dL LAB CHEMISTRY METHOD 06/07/2025 12:17 PM EDT [facility] eGFR 29(L) >=60 mL/min/1. 73m2 LAB CHEMISTRY METHOD 06/07/2025 12:17 PM EDT [facility] Comment:Calculation based on the Chronic Kidney Disease Epidemiology Collaboration (CKD-EPI) equation refit without adjustment for race. Blood Venous blood specimen / Unknown Venipuncture / Unknown 06/07/2025 9:44 AM EDT 06/07/2025 9:44 AM EDT us Dave Leblanc MD LAB BLOOD ORDERABLES Final Resu lt Performing Organization Address City/[facility]/ZIP Co de Phone Number [facility] [address] [place] [address], [place] [phone] * BUN (06/07/2025 9:44 AM EDT) BUN 23 5 - 25 mg/dL LAB CHEMISTRY METHOD 06/07/2025 12:17 PM EDT [facility] Blood Venous blood specimen / Unknown Venipuncture / Unknown 06/07/2025 9:44 AM EDT 06/07/2025 9:44 AM EDT us Dave Leblanc MD LAB BLOOD ORDERABLES Final Resu lt [facility] [address] [place] [address], [place] [phone] * Parathyroid hormone intact (06/07/2025 9:44 AM EDT) PTH 51.8 18.5 - 88.0 pcg/mL LAB CHEMISTRY METHOD 06/07/2025 12:53 PM EDT [facility] Blood Venous blood specimen / Unknown Venipuncture / Unknown 06/07/2025 9:44 AM EDT 06/07/2025 9:44 AM EDT us Dave Leblanc MD LAB BLOOD ORDERABLES Final Resu lt Performing Organization Address City/[facility]/ZIP Co de Phone Number [facility] [address] [place] [address], [place] [phone] * Electrolyte panel (06/07/2025 9:44 AM EDT) Sodium 141 133 - 145 mmol/L LAB CHEMISTRY METHOD 06/07/2025 12:17 PM EDT [facility] Potassium 4.5 3.5 - 5.5 mmol/L LAB CHEMISTRY METHOD 06/07/2025 12:17 PM [facility] Chloride 108 96 - 110 mmol/L LAB CHEMISTRY METHOD 06/07/2025 12:17 PM T [facility] CO2 26 21 - 32 mmol/L LAB CHEMISTRY METHOD 06/07/2025 12:17 PM EDT [facility] Anion Gap 7 3 - 11 LAB CHEMISTRY METHOD 06/07/2025 12:17 PM T [facility] Blood Venous blood specimen / Unknown Venipuncture / Unknown 06/07/2025 9:44 AM EDT 06/07/2025 9:44 AM EDT us Dave Leblanc MD LAB BLOOD ORDERABLES Final Resu lt [facility] [address] [place] [address], [place] [phone] * (ABNORMAL) Hemoglobin A1c (04/10/2025 11:21 AM EDT) Hemoglobin A1C 6.6(H) <6.5 % LAB CHEMISTRY METHOD 04/10/2025 9:06 PM EDT [facility] Mean Bld Glu Estim. 143 mg/dL LAB CHEMISTRY METHOD 04/10/2025 9:06 PM EDT [facility] Blood Venous blood specimen / Unknown Venipuncture / Unknown 04/10/2025 11:21 AM EDT 04/10/2025 11:21 AM EDT Mike GARCES LAB BLOOD ORDERABLES Fin al Result Performing Organization Address City/[facility]/ZIP Co de Phone Number [facility] [address] [place] [address], [place] [phone] * (ABNORMAL) Microalbumin creatinine urine ratio (08/09/2024 10:53 AM EST) Creatinine, Urine 84.0 mg/dL LAB CHEMISTRY METHOD 08/09/2024 2:43 PM EST [facility] Microalb, Ur 737.0(H) 0.0 - 29.0 mg/L LAB CHEMISTRY METHOD 08/09/2024 2:43 PM EST [facility] Microalb/Crea t Ratio 877(H) <30 mg/g creat LAB CHEMISTRY METHOD 08/09/2024 2:43 PM EST [facility] Urine Urine specimen obtained by clean catch procedure / Unknown Non-blood Collection / Unknown 08/09/2024 10:53 AM EST 08/09/2024 10:53 AM EST Jagruti Cardenas MD LAB URINE ORDERABLES Final Resul t [facility] [address] [place] [address], [place] [phone] * CT LUNG SCREENING LOW DOSE (07/18/2024 9:12 AM EDT) Anatomical Region Laterality Modality Computed Tomogra phy 07/16/2024 8:43 AM EDT Narrative 07/18/2024 9:12 AM EDT [facility] Diagnostic Imaging Department [address] [place] [address] Patient: JOSHUA DTUTA JR. CamachoO.B./Age/Sex: 1945 - 78 - M Unit#: [id number] Location/Status: SPDICATLS/REG CLI Mnemonic/Ordering [facility] Order[facility] Physician: COURTNEY DAVIES MD CT Lung [...] CT in 12 months. Dictating Physician: LAURO CEDILLO MD Electronically Signed by: LAURO CEDILLO MD Dic Date/Time: 07/18/24901 Sign date/Time: 07/18/24911 Procedure Note Lauro Cedillo MD - 07/23/2024 [facility] Diagnostic Imaging Department [address] [place] [address] Patient: JOSHUA DUTTA JR. Fitzgerald./Age/Sex: 1945 - 78 - M Unit#: [id number] [facility] CLI Mnemonic/Ordering Site: [facility] Ordering Physician: COURTNEY DAVIES MD CT Lung [...] CT in 12 months. Dictating Physician: LAURO CEDILLO MD Electronically Signed by: LAURO CEDILLO MD Dic Date/Time: 07/18/24901 Sign date/Time: 07/18/24911 Result [facility] Courtney Davies MD IMG CT PROCEDURES Final Result * Falls Risk Assessment (05/12/2024) [facility] Falls Risk Assessment Abstracted Result [facility] Historical Provider HEALTH MAINTENANCE Final Result * Diabetes Foot Exam (08/28/2023) [facility] Diabetes: Annual Foot Exam Abstracted Result [facility] Historical Provider HEALTH MAINTENANCE Final Result * Depression Screening (08/27/2023) Pathologist [facility] Depression Screening Abstracted Result [facility] Historical Provider HEALTH MAINTENANCE Final Result * Hepatitis C Screening (09/16/2011) Pathologist [facility] Hepatitis C Screening Abstracted Result [facility] Provider HEALTH MAINTENANCE Final Result from Last 3 Months or Most Recently Relevant to Health Maintenance Insurance MEDICARE [facility] Advance Directives * Full Code - Default (Latest Code Status on File) Date Activated Date Inactivated Comments 06/14/2025 7:17 AM 06/16/2025 3:58 PM This is orde r is used when code status has not been discussed with the patient, or code status is otherwise unknown/unconfirmed To update the patient's code status, place a code status order. Do not modify or discontinue any currently active code status orders. Care Teams Stave Machine Tender Relationship Specialty Start Date End Date Jagruti Cardenas MD [address] [place] [address] PCP - General 05/19/1994
--- OUTSIDE RECORDS SUMMARY | 2025-06-21 14:32 | XMS_ITS ---
Author Organization [address] Address [address] [place] [address] Phone Care Team Providers Care Electrical Assemblies Supervisor Name Role Phone Jagruti Cardenas MD Primary Care Provider [phone] Transitional Care Management Status:Identified (Enrolling) Start date:06/16/2025 Enrollment reason:Identified using hospital discharge data Case Team Name Relationship Phone Traci Castillo LPN(Responsible Staff) Care Manag er [phone] Continued Care and Services Coordination
--- OUTSIDE RECORDS SUMMARY | 2025-06-21 14:32 | XMS_ITS | Encounter Summary ---
Author Organization [facility] [place] [address] Care Team Providers Care Casino Accountant Name Role Phone Jagruti Cardenas MD Primary Care Provider [phone] Reason for Visit * Reason Onset Date Comments [facility] 06/21/2025 Encounter Details Date Type Department Care Team ([facility] st Contact Info) Description 06/21/2025 Telephone Adult Medicine [facility] [address] [place] [phone] Jagruti Cardenas MD [address] [place], [place] [phone] Social History Tobacco Use Types Packs/Day Years [...] care for your loved ones. For example, children's nursery assistant or elderly care for an older adult? [...] PM EST documented as of this encounter Progress Notes * Greg Short LPN - 06/21/2025 12:26 PM EDT See FYI from [facility] * Lexie Brush - 06/21/2025 12:04 PM EDT [facility] CALL Which [facility] office is calling? [facility] Full name of caller: [place] The caller is Admin Is the caller at the patients home?: no Reason for call: no response from patient, tried multiple times. Non admit him Does caller need an urgent call back? no Was CONTACT Telephone # obtained above?: no Fax #: n/a documented in this encounter Plan of Treatment Upcoming Encounters Date Type Department Care Team (Late st Contact Info) Description 07/17/2025 9:15 AM EDT Appointment [facility] CT Scan [address] [place] [address] 07/27/2025 10:45 AM EST Office Visit Orthopedic Surgery [place] [address] [phone] Neville Jacome, LEVI [address] [address] 08/10/2025 1:15 PM EST Office Visit Adult Medicine [address] [address] Jagruti Cardenas MD [address] [place] [address] documented as of this encounter Visit Diagnoses Not on filedocumented in this encounter Additional Health Concerns Assessment Noted Time PHQ-9 Depression Total Score: 0 12/07/19 25 11:27 AM EDT documented as of this encounter Care Teams Casino Accountant Relationship Specialty Start Date End Date Jagruti Cardenas MD [address] [place] [address] PCP - General 05/19/1994 documented as of this encounter
--- OUTSIDE RECORDS SUMMARY | 2025-06-21 14:32 | XMS_ITS | Encounter Summary ---
Author Organization [facility] Address [address] [place] [facility] [address] [place] [address] Phone Care Team Providers Care Appellate Court Clerk Name Role Phone Jagruti Cardenas MD Primary Care Provider [phone] Encounter Details Date Type Department Care Team ([facility] st Contact Info) Description 12/17/2022 Telephone [facility] [address] [facility] [address] [place] [address] Ghada Ellis Social History Tobacco [...] - 12/17/2022 9:53 AM EDT Clifton from [facility] called regarding a scheduled CT scan tomorrow 12/18/22. Radiology is looking for an order consenting for PT to have contrast dye. Clifton: [phone] Clifton called again in regards to the IV with contrast, she is looking for an order for this to be done. documented in this encounter Plan of Treatment Not on file documented as of this encounter Visit Diagnoses Not on filedocumented in this encounter Care Teams Appellate Court Clerk Relationship Specialty Start Date End Date Jagruti Cardenas MD [address] [place] [address] PCP - General Internal Medicine 06/19/25 documented as of this encounter
--- OUTSIDE RECORDS SUMMARY | 2025-06-21 14:33 | XMS_ITS | Clinical Summary ---
Author Organization [facility] Address [address] [address] Phone Care Team Providers Care Manager Library Name Role Phone Jagruti Cardenas MD Primary Care Provider [phone] Medications losartan (COZAAR) 50 MG tablet TAKE 1 TABLET BY MOUTH 1 TIME EACH DAY. 90 tablet 3 12/22/2022 Active calcitriol (ROCALTROL) 0.25 MCG capsule TAKE 1 CAPSULE (0.25 MCG TOTAL) BY MOUTH 1 (ONE) TIME EACH DAY 90 capsule 3 07/04/2024 5 Active Encounters Date Type Department Care Team Description 06/07/2025 Orders Only [facility] [address] [address] Dave Leblanc MD from Last 3 Months Social History Tobacco Use Types Packs/Day Years Used Date Smoking Tobacco: Never Assessed Sex and Gender Information Value Date Recorded Sex Assigned at Not on file Legal Sex Male 5:01 PM EST Gender Identity Not on file Sexual Orientation Not on file Plan of Treatment Health Maintenance Due Date Last Done Comments Hepatitis B Vaccine (1 of 3 - Risk 3-dose series) 2007 Influenza Vaccine (#1) 2025 4, 06/26/2023, 06/03/2022, Additional history exists Diabetes: Ophthalmology Exam 06/08/2025 Diabetes: Pedal Pulse Checked 06/08/2025 Diabetes: Sensory Foot Exam 06/08/2025 Diabetes: Visual Foot Exam 06/08/2025 Diabetes: Hemoglobin A1C 07/11/2025 04/10/2025, 03/21 Pneumococcal Vaccine: 50+ Years Completed 10/01/2018, 01/07/2017, 01/10/2011 Pneumococcal Vaccine: Peds ( 0 to 5 Years) and At-Risk Patients (6 to 49 Years) Discontinued 10/01/2018, 01/07/2017, 01/10/2011 Procedures Procedure Name Priority Date/Time Associated Diagnosis Comments PTH, INTACT Routine 06/07/2025 9:44 AM EDT PROTEIN / CREATININE RATIO, URINE Routine 06/07/2025 9:44 AM EDT CREATININE, SERUM Routine 06/07/2025 9:4 4 AM EDT ELECTROLYTE PANEL Routine 06/07/2025 9:4 4 AM EDT BUN Routine 06/07/2025 9:44 AM EDT from Last 3 Months Results * (ABNORMAL) Protein, Total, Random Urine w/Creatinine (Protein/Creat Ratio) (06/07/2025 9:44 AM EDT) Protein, Ur 76 mg/dL [facility] Urine Protein/Creati nine Ratio 0.95(H) <=0.20 mg/mg creat [facility] Creatinine, Urine 80.0 mg/dL [facility] 06/07/2025 9:44 AM EDT 06/07/2025 11:51 AM EDT us Dave Leblanc MD LAB URINE ORDERABLES Final Resu lt [facility] [address] [place] [address] * BUN (06/07/2025 9:44 AM EDT) BUN 23 5 - 25 mg/dL [facility] 06/07/2025 9:44 AM EDT 06/07/2025 11:51 AM EDT us Dave Leblanc MD LAB BLOOD ORDERABLES Final Resu lt Performing Organization Address [facility] Co de Phone Number [facility] [address] [place] [address] * PTH, Intact (06/07/2025 9:44 AM EDT) PTH 51.8 18.5 - 88.0 pcg/mL [facility] 06/07/2025 9:44 AM EDT 06/07/2025 11:51 AM EDT us Dave Leblanc MD LAB BLOOD ORDERABLES Final Resu lt Performing Organization Address [facility] Phone Number [facility] [address] [place] [address] * (ABNORMAL) Creatinine, serum (06/07/2025 9:44 AM EDT) Creatinine Serum 2.30(H) 0.70 - 1.30 mg/dL [facility] eGFR 29(L) >=60 mL/min/1. 73m2 [facility] Comment:Calculation based on the Chronic Kidney Disease Epidemiology Collaboration (CKD-EPI) equation refit without adjustment for race. 06/07/2025 9:44 AM EDT 06/07/2025 11:51 AM EDT us Dave Leblanc MD LAB BLOOD ORDERABLES Final Resu lt Performing Organization Address [facility] Co de Phone Number [facility] [address] [place] [address] * Electrolyte panel (06/07/2025 9:44 AM EDT) Sodium 141 133 - 145 mmol/L [facility] Potassium 4.5 3.5 - 5.5 mmol/L [facility] Chloride 108 96 - 110 mmol/L [facility] Bicarbonate (CO2) 26 21 - 32 mmol/L [facility] Anion Gap 7 3 - 11 [facility] 06/07/2025 9:44 AM EDT 06/07/2025 11:51 AM EDT us Dave Leblanc MD LAB BLOOD ORDERABLES Final Resu lt [facility]) [facility] [address] [place] [address] from Last 3 Months Insurance [place] [address] Medicare Pending Sale To [facility] Care Teams Manager Library Relationship Specialty Start Date End Date Jagruti Cardenas MD [address] [place] [address] PCP - General Internal Medicine 06/19/25
== END 2025-06-21 13:59 | disposition home or self-care (01) ==
LOC: HO.ENCR 13:21
PROVIDERS: Visit Provider Dietitian, Registered
DX: R73.03 Prediabetes (principal)

== ENCOUNTER → 2025-06-21 13:20 | Outpatient (BNVA) | payer MEDICARE, SELFPAY | PROVIDERS: Visit Provider Dietitian, Registered | DX: R73.03 Prediabetes (principal); Z71.3 Dietary counseling and surveillance | CPT/HCPCS: 97803 ==

== ENCOUNTER 2025-08-28 12:24 | Outpatient (AMB) | payer MEDICARE, SELFPAY ==
--- NOTE | 2025-08-28 12:36 | A.OFFVIS_ITS ---
VS Expanded 08/28/25 12:37 Height 5 ft 8 in Weight 172 lb 4 oz BMI 26.2 Intake Visit Reasons: PreDM Nutrition Presentation Details: Pt presents for MNT for pre DM Pt reports doing well. Patient reports has been contemplating joining activities at the [employer] close to his house. Reports working on choosing lower sugars cereals Patient reports also working on reducing on empty calorie foods (pastries in cookies and trying to incorporate more fruits into the diet Chooses juices and sodas for beverages, today will review low phosphorus on food options and beverages related to history of CKD Assessment & Plan Assessment & Plan (1) Prediabetes: Comment: A1c at 6.4% on 08/2025, CKD stage 4 Code(s): R73.03 - Prediabetes Category: Medical Plan: Wt: 79 Kg ( 05/15 ), 78kg(07/15), (09/14 Est kcal needs as per MSJ: 1800 (40% carb, 30% protein/fat) Est fluid needs as per 25-30 ml/d: 2400 Est prot per day as per 1 g/kg bw: 80 Recommend fiber intake : 8-10 g per day and gradually increase to 25-28 g per day for women and 35-38 g for men or as tolerated Recommend sodium intake per day : less than 2000 mg Educated patient on: ( R = reviewed V = verbalizes understanding N/R = needs review N/A = not applicable * Food sources of carbohydrate, adequate serving sizes and its role in various health conditions: R * Differences between complex carbohydrates a simple carbohydrates, role of fiber in diet: R * Lean protein sources of foods: R * Differences between types of fats and role in diet (mono on saturated fat fatty acids, saturated fatty acids, trans fats): R * Food sources of sodium in salt and healthy modifications for heart health in kidney health: R * Vitamins and minerals: R V N/R * Healthy plate method concept: R, V * Physical activity: Benefits a precaution: R * Hypoglycemia protocol (rule of 15): R V N/R * Dietary prevention of Hyperglycemia: R Patient Instructions: Choose low phosphorus beverages, dilute juices with water (grape juice, apple juice, lemonade, root beer) Continue working on following healthy plate method and choosing low-sodium foods and snacks Coding Level of Care Code Nutr Indiv Subseq (05814) Diagnoses Prediabetes R73.03 Time Spent (min) 30
[2025-08-28 12:37] VITALS: BMI 26.2
--- OUTSIDE RECORDS SUMMARY | 2025-08-28 20:28 | XMS_ITS | Encounter Summary ---
Author Organization [facility] [facility] Prior to 07/22/2024 Address [address] [place] [address] Care Team Providers Care Directional Drill Operator Name Role Phone Jagruti Cardenas MD Primary Care Provider [phone] Encounter Details Date Type Department Care Team Description 09/10/2021 Refill Nephrology - [address] [phone] Kaveh Hamilton MD [address] [place] [address] [phone] Social History Tobacco Use Types Packs/Day Years Used Date Smoking Tobacco: Every Day Cigarettes 0.5 45 Started: 09/21/1961 Smokeless Tobacco: Never Comments:started at 18 Alcohol Use Standard Drinks/Week Comments No 0 (1 standard drink = 0.6 oz pur e alcohol) Sex Assigned at Date Recorded Not on file Job Start Date Occupation Industry Not on file Not on file Not on file COVID-19 Exposure Response Date Recorded In the last month, have you been in contact with someone who was confirmed or suspected to have Coronavirus / COVID-19? No / Unsure 09/05/2021 10:55 AM EST documented as of this encounter Plan of Treatment Not on file documented as of this encounter Visit Diagnoses Not on filedocumented in this encounter Care Teams Directional Drill Operator Relationship Specialty Start Date End Date Jagruti Cardenas MD [address] [place] [phone] PCP - General 05/19/1994 documented as of this encounter
--- OUTSIDE RECORDS SUMMARY | 2025-08-28 20:28 | XMS_ITS | Encounter Summary ---
Author Organization [facility] [employer] [facility] Prior to 07/22/2024 Address [address] [place] [address] Care Team Providers Care Online Project Manager Name Role Phone Jagruti Cardenas MD Primary Care Provider [phone] Reason for Visit * Reason Comments E-prescribe Rx Request Encounter Details Date Type Department Care Team Description 07/02/2024 Refill Nephrology - [address] [phone] Dave Leblanc MD [address] [place] [address] [phone] E-prescribe Rx Request Social History Tobacco Use Types Packs/Day Years Used Date Smoking Tobacco: Every Day Cigarettes 0.5 47 Started: 09/21/1961 Smokeless Tobacco: Never Comments:started at 18 Alcohol Use Standard Drinks/Week Comments No 0 (1 standard drink = 0.6 oz pur e alcohol) Sex Assigned at Date Recorded Not on file Job Start Date Occupation Industry Not on file Not on file Not on file documented as of this encounter Plan of Treatment Not on file documented as of this encounter Visit Diagnoses Not on filedocumented in this encounter Care Teams Online Project Manager Relationship Specialty Start Date End Date Jagruti Cardenas MD [address] [place] [address] [phone] PCP - General 05/19/1994 documented as of this encounter
--- OUTSIDE RECORDS SUMMARY | 2025-08-28 20:28 | XMS_ITS | Encounter Summary ---
Author Organization [facility] Prior to 07/22/2024 Address [address] [place] [address] Care Team Providers Care Mop Worker Name Role Phone Jagruti Cardenas MD Primary Care Provider [phone] Reason for Visit * Reason Comments E-prescribe Rx Request Encounter Details Date Type Department Care Team Description 01/04/2022 Refill Adult Medicine [address] [address] Stephanie Dia NP E-prescribe Rx Request Social History Tobacco Use [...] encounter Miscellaneous Notes * Telephone Encounter - Nati Harjeet - 01/07/2022 11:19 AM EDT Patient would like script to be: E-PRESCRIBED/FAXED TO PHARMACY WHEN WAS THE PATIENT'S LAST APPOINTMENT IN ADULT MEDICINE? 10/02/21 WHEN WAS THE LAST TIME THE PATIENT SAW THEIR PCP? Same as above Does patient have an upcoming appointment? Yes 01/23/22 (THE MEDICATION REQUESTED IS ON THE MED LIST ABOVE) One or some of the medications requested were on the HISTORICAL MED list Did you check the Pharmacy information above?: YES Patient wants: 90 -day supply Is this a mail order prescription request ? NO If the refill is from a FAXED refill request what is the RX # listed on the fax? N/A Patients current insurance carrier is: [place] / [place] / Product Type: MED[place]ARE [id number] documented in this encounter Plan of Treatment Not on file documented as of this encounter Visit Diagnoses Not on filedocumented in this encounter Care Teams Mop Worker Relationship Specialty Start Date End Date Jagruti Cardenas MD [address] [place] [address] PCP - General 05/19/1994 documented as of this encounter
--- OUTSIDE RECORDS SUMMARY | 2025-08-28 20:28 | XMS_ITS | Encounter Summary ---
Author Organization [employer] [employer] [facility] Prior to 07/22/2024 Address [address] [place] [address] Care Team Providers Care Blending Plant Operator Name Role Phone Jagruti Cardenas MD Primary Care Provider [phone] Encounter Details Date Type Department Care Team Description 03/31/2011 Refill Nephrology - [address] [address] Dave Leblanc MD [address] [place] [address] [phone] Social History Tobacco Use Types Packs/Day Years Used Date Smoking Tobacco: Every Day Cigarettes 1 45 Comments:started at 18 Alcohol Use Standard Drinks/Week [...] on filedocumented in this encounter Care Teams Blending Plant Operator Relationship Specialty Start Date End Date Jagruti Cardenas MD [address] [place] [address] [phone] PCP - General 05/19/1994 documented as of this encounter
--- OUTSIDE RECORDS SUMMARY | 2025-08-28 20:28 | XMS_ITS | Clinical Summary ---
Author Organization [employer] [employer] [facility] Prior to 07/22/2024 Address [address] [place] [address] Care Team Providers Care Technical Sales Support Manager Name Role Phone Jagruti Cardenas MD Primary Care Provider [phone] Allergies No known active allergies Medications Medication Sig Dispensed Refills Start Date End Date Status ASPIRIN 81 MG OR TABS 1 TABLET DAILY 0 Active Spacer/Aero-Hold ing Chambers (BREATHERITE CECILIA SPACER ADULT) MISC 1 Device by Does not apply route as needed. use w flovent 1 Each 3 11/25/2010 Active Cholecalciferol (VITAMIN D) 2000 UNITS Cap Take 1 Cap by mouth daily. 30 Cap 0 03/11/2018 Active calcitRIOL (ROCALTROL) 0.25 MCG capsule Take 1 Capsule by mouth daily for 360 days. 90 Capsule 3 07/01/2022 Active Lancets (OneTouch Delica Plus Kcqcap20C) Misc Apply 1 Stick topically daily. 100 Each 1 12/22/2022 Active Blood Glucose Monitoring Suppl (ONE TOUCH ULTRA 2) w/Device Kit USE TO TEST FASTING BLOOD SUGAR ONCE DAILY 1 Kit 0 12/22/2022 Active OneTouch Verio strip USE TO TEST FASTING BLOOD SUGAR ONCE DAILY 100 Strip 1 06/17/2023 Active famotidine (Pepcid) 20 MG tablet Take 1 Tablet by mouth 2 times daily. 60 Tablet 12 08/27/2023 Active cloNIDine 0.2 MG/24HR PATCH WEEKLY Place 1 Patch onto the skin every 7 days. 13 Patch 3 10/14/2023 Active ALBUTEROL SULFATE 108 (90 Base) MCG/ACT Aero Soln Inhale 2 Puffs into the lungs every 4 hours as needed for Cough or Wheezing. 8.5 g 0 12/28/2023 Active fluticasone 50 MCG/ACT nasal spray 2 Sprays by Nasal route daily. 48 mL 1 12/28/2023 Active Metoprolol Succinate 50 MG Capsule ER 24 Hour SprinkleIndicati ons:Chronic kidney disease, stage IV (severe) (HCC) Take 1 capsule.old by mouth daily. 90 Capsule 3 03/15/2024 Active methocarbamol (ROBAXIN) 750 MG tablet Take 1 Tablet by mouth at bedtime as needed (muscle spasm, will cause sedation). 30 Tablet 1 06/14/2024 Active atorvastatin (LIPITOR) 20 MG tablet TAKE 1 TABLET BY MOUTH EVERY DAY 90 Tablet 1 06/24/2024 Active amlodipine (NORVASC) 5 MG tablet TAKE 1 AND 1/2 TABLETS DAILY BY MOUTH 135 Tablet 3 07/05/2024 Active gabapentin (NEURONTIN) 100 MG capsule TAKE 2 CAPSULES BY MOUTH TWICE A DAY 360 Capsule 1 07/05/2024 Active omeprazole (PRILOSEC OTC) 20 MG tablet Take 1 Tab by mouth daily as needed (Indigestion or reflux). 30 Tab 1 07/18/2016 07/18/2024 Discontinue d(reorder) Active Problems Problem Noted Date Gastroesophageal reflux disease with eso phagitis without hemorrhage 08/28/2023 Leg hematoma, left, sequela 03/23/2023 Overview: after right fem to popliteal bypass, by Dr. Juan LAWSON (peripheral vascular disease) with c laudication 01/24/2022 Overview: Dr. Moore- failed grafting, anticoagulation dc'd History of prostate cancer 04/30/2021 Tobacco use 04/01/2018 Controlled type 2 diabetes m jorge albertoitus with chronic kidney disease, without long-term current use of insulin 08/25/2017 CKD (chronic kidney disease) stage 3, GF R 30-59 ml/min 09/13/2015 Overview: Follows with Dr. Leblanc Anticoagulated on Coumadin 02/28/2014 Overview: RENNY. Pure hypercholesterolemia 09/29/2012 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 Overview: Per pul note 2010, in the 70' Allergic rhinitis 11/25/2010 Asthmatic bronchitis , chronic 1 CHRONIC RENAL INSUFFICIENCY 04/07/2007 Overview: CREATININE USUALLY AROUND 2.0, follows with Dr. Benji MAY update Chronic hepatitis 06/23/2005 Overview: hepatitis C by history. But serology test (-) 2010 DEPRESSION 06/23/2005 Personal history of alcoholism 5 Overview: Stopped completely 1993 Essential hypertension, benign 5 Hyperpotassemia 12/09/2004 Resolved Problems Problem Noted Date Resolved Date Hyperglycemia 06/05/2014 08/21/2017 Acute venous embolism and th rombosis of deep vessels of proximal lower extremity 05/07/2009 02/04/2010 PERIPHERAL VASCULAR DISEASE 04/07/200710/22 Overview: S/P right LE BYPASS WITH RECENT(08/2008 ANGIOPLASTY) and then occlusion in April 2009 with repeat baloon angioplasty and TPA. Subsequent coumadin. Reocclusion 01/2013, needs life long coumadin per vascular Primary localized osteoarthrosis, lower leg 10/200404/07/2007 Immunizations Name Administration Dates Next Due COVID-19 (Moderna Booster) 06/26/2023 COVID-19 (Pfizer) 01/13/2021,12/22/2020 COVID-19 (Pfizer) Pt Reported 07/22/2021 Influenza (> 6 Months) 05/30/2016,2014,07/05/2014,07/11,06/06/2012,07/08/2011,07/28/2005 Influenza Flu (PT Reported) 07/05/2019 Influenza Vaccine-preservati ve Free-quadrivalent 4 Years 10/01/2018 Influenza Vaccine-quadrivale nt 4 Years Plus 08/21/2017 Influenza vaccine high dose age 65 and over 06/26/2023,06/03/2022,07/02/2021,06/21 Pneumoccoccal(Adult) Polysac charide PPSV23 10/01/2018,01/10/2011 Pneumococcal Conjugate PCV-13 01/07/2017 Pneumococcal Conjugate PCV-20 06/26/2023 TD (STATE SUPPLIED FOR ADULT S AND CHILDREN) 08/27/2023 Tdap 08/03/2012 Zostavax (Patient Reported) 03/30/2012 Family History Medical History Relation Name Comments shot Brother No Known Problems Father No Known Problems Mother No Known Problems Sister 2 weak heart Sister 3 Relation Name Status Comments Brother Father Mother Sister 1 Alive Sister 2 Sister 3 Social History Tobacco Use Types Packs/Day Years Used Date Smoking Tobacco: Every Day Cigarettes 0.5 45 Started: 09/21/1961 Smokeless Tobacco: Never Tobacco Cessation:Ready to Q uit: Not Asked; Counseling Given: Not Answered Comments:started at 18 Alcohol Use Standard Drinks/Week Comments No 0 (1 standard drink = 0.6 oz pur e alcohol) Sex Assigned at Date Recorded Not on file Job Start Date Occupation Industry Not on file Not on file Not on file Last Filed Vital Signs Vital Sign Reading Time Taken Comments Blood Pressure 128/58 07/18/2024 1:35 PM EDT Pulse 64 07/18/2024 1:35 PM EDT Temperature 36.1 C (96.9 F) 07/18/2024 1:35 PM EDT Respiratory Rate 14 07/18/2024 1:35 PM EDT Oxygen Saturation 98% 12/24/2023 11:27 AM EDT Inhaled Oxygen Concentration - - Weight 80.7 kg (178 lb) 07/18/2024 1:35 PM EDT Height 172.7 cm (5' 8 ) 07/18/2024 1:35 PM EDT Body Mass Index 27.06 07/18/2024 1:35 PM EDT Plan of Treatment Health Maintenance Due Date Last Done Comments SHINGLES VACCINE (1 of 2) 05/25/2012 SPIROMETRY (BREATHING CAPACI TY TEST) FOR COPD 07/29/2015 07/29/2013, 07/29/2013, 11/07/2010, Additional history exists DIABETES: ANNUAL EYE EXAM 10/08/20232022 (External Completion), 09/21/2018 (Completed) DIABETES: ANNUAL URINE PROTE IN TEST (MICROALBUMIN) 11/06/2023 11/06/2022, 05/06/2022, 09/23/2021, Additional history exists TOBACCO CHECK/ADVISE 01/25/2024 01/24/2022, 10/03/2019, 07/01/2019 DIABETES: BLOOD SUGAR CONTRO L TEST (HGBA1C) 07/05/2024 04/04/2024, 08/24/2023, 04/22/2023, Additional history exists DIABETES/HEART DISEASE: ARNALDO LUNA CHOLESTEROL (LDL) 08/24/2024 08/24/2023, 05/06/2022, 09/23/2021, Additional history exists DEPRESSION SCREEN 08/27/2024 08/27/2023, , 08/02/2015 DIABETES: ANNUAL FOOT EXAM 08/28/202408/28, 06/05/2022, 03/31/2019 (Completed) BMI CHECK/ADVISE 09/21/2024 07/18/2024, , 12/28/2023, Additional history exists FALL RISK ASSESSMENT 05/12/2025 05/12/2024, 06/03/2022, 06/03/2022, Additional history exists Covid-19 Vaccine (2022- 4 season) 2025 06/26/2023, 07/22/2021, 01/13/2021, Additional history exists INFLUENZA (#1) 2025 06/26/2023, 05/22, 07/02/2021, Additional history exists DTAP/TDAP/TD (3 - Td or Tdap) 08/27/2033 08/27/2023, 08/03/2012 HEPATITIS C SCREENING Completed 09/16/2011, 009 PNEUMOCOCCAL VACCINE Completed 06/26/2023, 10/01/2018, 01/07/2017, Additional history exists Care Teams Technical Sales Support Manager Relationship Specialty Start Date End Date Jagruti Cardenas MD [address] [place] [id number] PCP - General 05/19/1994
--- OUTSIDE RECORDS SUMMARY | 2025-08-28 20:28 | XMS_ITS | Encounter Summary ---
Author Organization [facility] [employer] [facility] Prior to 07/22/2024 Address [address] [place] [address] Care Team Providers Care Core Stacker Name Role Phone Jagruti Cardenas MD Primary Care Provider Encounter Details Date Type Department Care Team Description 06/30/2017 Orders Only Nephrology - [place] [address] [place] [address] Dave Leblanc MD [address] [place] [address] [phone] Social History Tobacco Use Types Packs/Day Years [...] on filedocumented in this encounter Care Teams Core Stacker Relationship Specialty Start Date End Date Jagruti Cardenas MD [address] [place] [address] [phone] PCP - General 05/19/1994 documented as of this encounter
--- OUTSIDE RECORDS SUMMARY | 2025-08-28 20:28 | XMS_ITS | Encounter Summary ---
Author Organization [facility] Prior to 07/22/2024 Address [address] [place] [address] Care Team Providers Care Jailor Name Role Phone Jagruti Cardenas MD Primary Care Provider [phone] Encounter Details Date Type Department Care Team Description 08/24/2012 Refill [facility] MyChart [address] [place] [address] Md Trey Social History Tobacco Use Types Packs/Day Years Used Date Smoking Tobacco: Every Day Cigarettes 0.5 45 Comments:started at 18 Alcohol Use Standard Drinks/Week Comments No 0 (1 standard drink = 0.6 oz pur e alcohol) Sex Assigned at Date Recorded Not on file Job Start Date Occupation Industry Not on file Not on file Not on file documented as of this encounter Miscellaneous Notes * Telephone Encounter - Joselin Staples M.A. - 08/24/2012 5:53 PM ESTFrom: JOSHUA RUBIO JR Sent: ThuAug 24, 2012 11:23 AM Subject: Request Refill Not On Medication List Request submitted by Joshua Rubio Jr. [<[id number]>] on 08/24/2012 at 11:14:57 AM Form Title: Request Refill Not On Medication List Submitted Data From: Joshua Rubio Jr. Primary care provider: Jagruti Cardenas MD --- Contact Information --- Contact Phone #: [phone] --- Medication Request Information --- Medication name: Losartan Potassium Dosage: 50MG Tab instructions: Take one tablet by mouth every day # Dispensed: 90 Ordering Provider: Dr. Dave Leblanc Pharmacy: [address] [facility]. [id number] Other Details: Ihave enough meds left for one more week. documented in this encounter Plan of Treatment Not on file documented as of this encounter Visit Diagnoses Not on filedocumented in this encounter Care Teams Jailor Relationship Specialty Start Date End Date Jagruti Cardenas MD [address] [place] [address] PCP - General 05/19/1994 documented as of this encounter
--- OUTSIDE RECORDS SUMMARY | 2025-08-28 20:28 | XMS_ITS | Encounter Summary ---
Author Organization [facility] [employer] [facility] Prior to 07/22/2024 Address [address] [place] [address] Care Team Providers Care Lockstitch Lining Setter Name Role Phone Jagruti Cardenas MD Primary Care Provider [phone] Encounter Details Date Type Department Care Team Description 12/20/2021 Tumblers Supervisor Report Medical Records [address] [place] [id number] Social History Tobacco Use Types Packs/Day Years [...] on filedocumented in this encounter Care Teams Lockstitch Lining Setter Relationship Specialty Start Date End Date Jagruti Cardenas MD [address] [place] [phone] PCP - General 05/19/1994 documented as of this encounter
--- OUTSIDE RECORDS SUMMARY | 2025-08-28 20:28 | XMS_ITS | Encounter Summary ---
Author Organization [employer] [employer] [facility] Prior to 07/22/2024 Address [address] [place] [address] Care Team Providers Care Economics Faculty Member Name Role Phone Jagruti Cardenas MD Primary Care Provider Encounter Details Date Type Department Care Team Description 03/02/2013 Prepress Supervisor Report Medical Records [address] [place] [address] Aakash Moctezuma MD Social History Tobacco Use Types Packs/Day Years [...] on filedocumented in this encounter Care Teams Economics Faculty Member Relationship Specialty Start Date End Date Jagruti Cardenas MD [address] [place] [address] [phone] PCP - General 05/19/1994 documented as of this encounter
--- OUTSIDE RECORDS SUMMARY | 2025-08-28 20:28 | XMS_ITS | Encounter Summary ---
Author Organization [employer] [facility] Prior to 07/22/2024 Address [address] [place] [address] Care Team Providers Care Feed Crusher Operator Name Role Phone Jagruti Cardenas MD Primary Care Provider [phone] Encounter Details Date Type Department Care Team Description 04/22/2011 Methods Specialist Engineer Report Medical Records [address] [place] [address] Surinder Castillo MD, MD Social History Tobacco Use Types Packs/Day [...] on filedocumented in this encounter Care Teams Feed Crusher Operator Relationship Specialty Start Date End Date Jagruti Cardenas MD [address] [place] [address] [phone] PCP - General 05/19/1994 documented as of this encounter
--- OUTSIDE RECORDS SUMMARY | 2025-08-28 20:28 | XMS_ITS | Encounter Summary ---
Author Organization [facility] [employer] [facility] Prior to 07/22/2024 Address [address] [place] [address] Care Team Providers Care Manager Of Financial Planning Name Role Phone Jagruti Cardenas MD Primary Care Provider [phone] Encounter Details Date Type Department Care Team Description 07/17/2017 Electrical Instrumentation Technician Report Medical Records [address] [place] [address] Claribel Mtz Social History Tobacco Use Types Packs/Day Years [...] on filedocumented in this encounter Care Teams Manager Of Financial Planning Relationship Specialty Start Date End Date Jagruti Cardenas MD [address] [place], [place] [phone] PCP - General 05/19/1994 documented as of this encounter
--- OUTSIDE RECORDS SUMMARY | 2025-08-28 20:28 | XMS_ITS | Encounter Summary ---
Author Organization [facility] Prior to 07/22/2024 Address [address] [place] [address] Care Team Providers Care Geothermal Hvac Technician Name Role Phone Jagruti Cardenas MD Primary Care Provider [phone] Reason for Visit * Reason Comments E-prescribe Rx Request Encounter Details Date Type Department Care Team Description 12/26/2023 Refill Adult Medicine [facility] [address] [place] [address] [phone] Jagruti Cardenas MD [address] [place] [address] [phone] E-prescribe Rx Request Social History Tobacco Use [...] encounter Miscellaneous Notes * Telephone Encounter - Hollie Bassett M.A. - 12/29/2023 1:49 PM EDT Lab Results Component Value Date NA 144 08/24/2023 K 5.6 08/24/2023 CO2 29 08/24/2023 CL 110 08/24/2023 BUN 21 08/24/2023 CREAT 2.18 08/24/2023 GLU 111 08/24/2023 CA 9.9 08/24/2023 GFR 31 08/24/2023 Pending appt 04/2024 Last appt yesterday * Telephone Encounter - Donna Bree - 12/29/2023 12:01 PM EDT Patient would like script to be: E-PRESCRIBED/FAXED TO PHARMACY WHEN WAS THE PATIENT'S LAST APPOINTMENT IN ADULT MEDICINE? 12/28/23 WHEN WAS THE LAST TIME THE PATIENT SAW THEIR PCP? Same as above Does patient have an upcoming appointment? Yes 05/12/24 (THE MEDICATION REQUESTED IS ON THE MED LIST ABOVE) All of the medications requested were on the CURRENT MEDS list Did you check the Pharmacy information above?: YES Patient wants: 90 -day supply Is this a mail order prescription request ? NO If the refill is from a FAXED refill request what is the RX # listed on the fax? N/A Patients current insurance carrier is: [place] / [place] / Product Type: MEDICARE [id number] documented in this encounter Plan of Treatment Not on file documented as of this encounter Visit Diagnoses Not on filedocumented in this encounter Care Teams Geothermal Hvac Technician Relationship Specialty Start Date End Date Jagruti Cardenas MD [address] [place] [address] [phone] PCP - General 05/19/1994 documented as of this encounter
--- OUTSIDE RECORDS SUMMARY | 2025-08-28 20:28 | XMS_ITS | Encounter Summary ---
Author Organization [facility] [employer] [facility] Prior to 07/22/2024 Address [address] [place] [address] Care Team Providers Care Core Fitter Name Role Phone Jagruti Cardenas MD Primary Care Provider [phone] Encounter Details Date Type Department Care Team Description 11/29/2020 Clarifier Report Medical Records [address] [place] [id number] Abstract, Provider Social History Tobacco Use Types Packs/Day Years [...] have Coronavirus / COVID-19? No / Unsure 11/22/2020 11:01 AM EST documented as of this encounter Plan of Treatment Not on file documented as of this encounter Visit Diagnoses Not on filedocumented in this encounter Care Teams Core Fitter Relationship Specialty Start Date End Date Jagruti Cardenas MD [address] [place] [address] [phone] PCP - General 05/19/1994 documented as of this encounter
--- OUTSIDE RECORDS SUMMARY | 2025-08-28 20:28 | XMS_ITS | Encounter Summary ---
Author Organization [facility] Prior to 07/22/2024 Address [address] [place] [address] Care Team Providers Care County Treasurer Name Role Phone Jagruti Cardenas MD Primary Care Provider [phone] Reason for Visit * Reason Comments other Encounter Details Date Type Department Care Team Description 11/25/2004 Telephone Orthopedics-[address] [phone] Brayden Nicolas PA other Social History Tobacco Use Types Packs/Day Years Used Date Smoking Tobacco: Never Assessed Sex Assigned at Date Recorded Not on file Job Start Date Occupation Industry Not on file Not on file Not on file documented as of this encounter Miscellaneous Notes * Telephone Encounter - 11/25/2004 9:32 AM ESTCALL RECEIVED. Contact: Self PT called on thursday to try to get an appt with Mr. Boggs. He came in last Thu. for an inj and yesterday he work up and couldnt walk. It is very tender behind his knee. We gave him an appt on Thu ut if he can get in sooner please call him. documented in this encounter Plan of Treatment Not on file documented as of this encounter Visit Diagnoses Not on filedocumented in this encounter Care Teams County Treasurer Relationship Specialty Start Date End Date Jagruti Cardenas MD [address] [place] [address] PCP - General 05/19/1994 documented as of this encounter
--- OUTSIDE RECORDS SUMMARY | 2025-08-28 20:28 | XMS_ITS | Encounter Summary ---
Author Organization [employer] [employer] [facility] Prior to 07/22/2024 Address [address] [place] [address] Care Team Providers Care Dip Tube Assembler Machine Name Role Phone Jagruti Cardenas MD Primary Care Provider [phone] Encounter Details Date Type Department Care Team Description 03/12/2024 Pt. Non Urgent Medical Question Nephrology - [address] [address] Dave Leblanc MD [address] [place] [address] [phone] Social History Tobacco Use Types Packs/Day Years [...] on filedocumented in this encounter Care Teams Dip Tube Assembler Machine Relationship Specialty Start Date End Date Jagruti Cardenas MD [address] [place] [phone] PCP - General 05/19/1994 documented as of this encounter
--- OUTSIDE RECORDS SUMMARY | 2025-08-28 20:28 | XMS_ITS | Encounter Summary ---
Author Organization [employer] [employer] [facility] Prior to 07/22/2024 Address [address] [place] [address] Care Team Providers Care Extrusion Former Name Role Phone Jagruti Cardenas MD Primary Care Provider [phone] Reason for Visit * Reason Comments E-prescribe Rx Request Encounter Details Date Type Department Care Team Description 12/31/2020 Refill Adult Medicine [facility] [address] [place] [address] [phone] Jagruti Cardenas MD [address] [place] [address] [phone] E-prescribe Rx Request Social History Tobacco Use [...] have Coronavirus / COVID-19? No / Unsure 12/20/2020 10:55 AM EDT documented as of this encounter Miscellaneous Notes * Telephone Encounter - Hollie Bassett M.A. - 01/02/2021 9:17 AM EDT Lab Results Component Value Date CHOL 126 09/29/2019 LDL 61 09/29/2019 HDL 38 09/29/2019 TRIG 137 09/29/2019 SGOT 19 10/02/2020 SGPT 27 10/02/2020 Pending appt with pcp 01/25/21 * Telephone Encounter - Sarah Andrea - 01/01/2021 11:55 AM EDT Patient would like script to be: E-PRESCRIBED/FAXED TO PHARMACY WHEN WAS THE PATIENT'S LAST APPOINTMENT IN ADULT MEDICINE? 09/27/20 WHEN WAS THE LAST TIME THE PATIENT SAW THEIR PCP? Same as above Does patient have an upcoming appointment? Yes 01/25/21 (THE MEDICATION REQUESTED IS ON THE MED [...] / [place] / Product Type: MEDICARE [id number] documented in this encounter Plan of Treatment Not on file documented as of this encounter Visit Diagnoses Not on filedocumented in this encounter Care Teams Extrusion Former Relationship Specialty Start Date End Date Jagruti Cardenas MD [address] [place] [address] PCP - General 05/19/1994 documented as of this encounter
--- OUTSIDE RECORDS SUMMARY | 2025-08-28 20:29 | XMS_ITS | Encounter Summary ---
Author Organization [facility] [employer] [facility] Prior to 07/22/2024 Address [address] [place] [address] Care Team Providers Care Visual Stylist Name Role Phone Jagruti Cardenas MD Primary Care Provider [phone] Encounter Details Date Type Department Care Team Description 10/22/2023 Cota Report Medical Records [address] [place] [phone] Abstract, Provider Social History Tobacco Use Types [...] on filedocumented in this encounter Care Teams Visual Stylist Relationship Specialty Start Date End Date Jagruti Cardenas MD [address] [place] [address] PCP - General 05/19/1994 documented as of this encounter
--- OUTSIDE RECORDS SUMMARY | 2025-08-28 20:29 | XMS_ITS | Encounter Summary ---
Author Organization [facility] [employer] [facility] Prior to 07/22/2024 Address [address] [place] [address] Care Team Providers Care Auditing Manager Name Role Phone Jagruti Cardenas MD Primary Care Provider Encounter Details Date Type Department Care Team Description 09/15/2020 Refill Nephrology - [address] [phone] Kaveh Hamilton MD [address] [place] [address] [phone] Social History Tobacco Use Types Packs/Day Years [...] have Coronavirus / COVID-19? No / Unsure 08/23/2020 11:06 AM EST documented as of this encounter Plan of Treatment Not on file documented as of this encounter Visit Diagnoses Not on filedocumented in this encounter Care Teams Auditing Manager Relationship Specialty Start Date End Date Jagruti Cardenas MD [address] [place] [address] [phone] PCP - General 05/19/1994 documented as of this encounter
--- OUTSIDE RECORDS SUMMARY | 2025-08-28 20:29 | XMS_ITS | Encounter Summary ---
Author Organization [facility] Prior to 07/22/2024 Address [address] [place] [address] Care Team Providers Care Face Man Name Role Phone Jagruti Cardenas MD Primary Care Provider [phone] Encounter Details Date Type Department Care Team Description 06/03/2023 Orders Only [facility] Lung Screening Program [place] [address] [facility] [address] [place] [phone] Alvaro Robles MD [address] [facility] [address] [place] [address] Encounter for screening for lung cancer (Primary Dx); Cigarette smoker Social History Tobacco Use Types Packs/Day Years [...] Exposure Response Date Recorded In the last 10 days, have yo u been in contact with someone who was confirmed or suspected to have Coronavirus/COVID-19? No / Unsure 05/27/2023 12:49 PM EDT documented as of this encounter Plan of Treatment Not on file documented as of this encounter Results * CT LOW DOSE LUNG SCREEN ANNUAL (07/15/2023) 07/15/[address] SCANS documented in this encounter Visit Diagnoses Diagnosis Encounter for screening for lung cancer- Primary Cigarette smoker Tobacco use disorder documented in this encounter Care Teams Face Man Relationship Specialty Start Date End Date Jagruti Cardenas MD [address] [place] [address] PCP - General 05/19/1994 documented as of this encounter
--- OUTSIDE RECORDS SUMMARY | 2025-08-28 20:29 | XMS_ITS | Encounter Summary ---
Author Organization [employer] [facility] Prior to 07/22/2024 Address [address] [place] [address] Care Team Providers Care Nurse Informatics Educator Name Role Phone Jagruti Cardenas MD Primary Care Provider [phone] Encounter Details Date Type Department Care Team Description 01/23/2024 Cnc Field Service Engineer Report Medical Records [address] [place] [phone] Abstract, Provider Social History Tobacco Use Types [...] on filedocumented in this encounter Care Teams Nurse Informatics Educator Relationship Specialty Start Date End Date Jagruti Cardenas MD [address] [place] [address] PCP - General 05/19/1994 documented as of this encounter
--- OUTSIDE RECORDS SUMMARY | 2025-08-28 20:29 | XMS_ITS | Encounter Summary ---
Author Organization [employer] [facility] Prior to 07/22/2024 Address [address] [place] [address] Care Team Providers Care Pie Maker Name Role Phone Jagruti Cardenas MD Primary Care Provider [phone] Encounter Details Date Type Department Care Team Description 06/27/2023 Orders Only Medical Records [address] [place] [address] Abstract, Provider Social History Tobacco Use Types [...] suspected to have Coronavirus/COVID-19? No / Unsure 06/24/2023 9:54 AM EDT documented as of this encounter Plan of Treatment Not on file documented as of this encounter Procedures Procedure Name Priority Date/Time Associated Diagnosis Comments OUTSIDE CT Routine 04/06/2023 documented in this encounter Results * OUTSIDE CT (04/06/2023) Provider Abstract RADIOLOGY documented in this encounter Visit Diagnoses Not on filedocumented in this encounter Care Teams Pie Maker Relationship Specialty Start Date End Date Jagruti Cardenas MD [address] [place] [address] PCP - General 05/19/1994 documented as of this encounter
--- OUTSIDE RECORDS SUMMARY | 2025-08-28 20:29 | XMS_ITS | Encounter Summary ---
Author Organization [employer] [facility] Prior to 07/22/2024 Address [address] [place] [address] Care Team Providers Care Medicaid Plan Compliance Director Name Role Phone Jagruti Cardenas MD Primary Care Provider [phone] Encounter Details Date Type Department Care Team Description 08/19/2023 Orders Only Adult Medicine [address] [phone] Jagruti Cardenas MD [address] [place] [address] [phone] Social History Tobacco Use Types Packs/Day Years [...] Recorded In the last 10 days, have sandip u been in contact with someone who was confirmed or suspected to have Coronavirus/COVID-19? No / Unsure 07/29/2023 12:50 PM EST documented as of this encounter Plan of Treatment Not on file documented as of this encounter Visit Diagnoses Not on filedocumented in this encounter Care Teams Medicaid Plan Compliance Director Relationship Specialty Start Date End Date Jagruti Cardenas MD [address] [place] [address] [phone] PCP - General 05/19/1994 documented as of this encounter
--- OUTSIDE RECORDS SUMMARY | 2025-08-28 20:30 | XMS_ITS | Encounter Summary ---
Author Organization [facility] Prior to 07/22/2024 Address [address] [place] [address] Care Team Providers Care Advertising Display Rotator Name Role Phone Jagruti Cardenas MD Primary Care Provider [phone] Reason for Visit * Reason Onset Date Comments VNA Call 02/17/2023 Encounter Details Date Type Department Care Team Description 02/17/2023 Telephone Adult Medicine [facility] [address] [place] [address] [phone] Jagruti Cardenas MD [address] [place] [address] [phone] VNA Call Social History Tobacco Use Types Packs/Day Years [...] encounter Miscellaneous Notes * Telephone Encounter - Greg KeeneP.NJose Luis - 02/17/2023 3:11 PM EDT Maddi called the pharmacy they are working on it now * Telephone Encounter - Greg KeeneP.NJose Luis - 02/17/2023 2:51 PM EDT Called Ankita Amlodipine not at pharmacy please review * Telephone Encounter - Jean Carlos Johnson - 02/17/2023 2:02 PM EDT Ankita Mendez, a nurse working with [facility] is calling again because she has additional information she needed to report to our [facility] nursing team regarding the message from earlier today. documented in this encounter Plan of Treatment Not on file documented as of this encounter Visit Diagnoses Not on filedocumented in this encounter Care Teams Advertising Display Rotator Relationship Specialty Start Date End Date Jagruti Cardenas MD [address] [place] [address] PCP - General 05/19/1994 documented as of this encounter
--- OUTSIDE RECORDS SUMMARY | 2025-08-28 20:30 | XMS_ITS | Encounter Summary ---
Author Organization [facility] Prior to 07/22/2024 Address [address] [place] [address] Care Team Providers Care Medical Office Technologist Name Role Phone Jagruti Cardenas MD Primary Care Provider [phone] Reason for Visit * Reason Onset Date Comments Medication 04/24/2023 Encounter Details Date Type Department Care Team Description 04/24/2023 Pt. Non Urgent Medical Question Adult Medicine [address] [address] Jagruti Cardenas MD [address] [place] [address] Social History Tobacco Use Types Packs/Day Years [...] suspected to have Coronavirus/COVID-19? No / Unsure 04/27/2023 1:19 PM EDT documented as of this encounter Miscellaneous Notes * Telephone Encounter - Maddi Concepcion M.A. - 04/24/2023 12:06 PM EDTFrom: Alexandro Rubio Jr. To: Brian Cardenas Sent: 04/24/2023 11:43 AM EDT Subject: Medication:Clipizide 5mg Tab I'am removing this cheap medication from my med list as I know longer take the junk.It was the cause of my last hospital stay. I have know plans of any kind for a replacement medication at this time.Jr Paige. [employer] documented in this encounter Plan of Treatment Not on file documented as of this encounter Visit Diagnoses Not on filedocumented in this encounter Care Teams Medical Office Technologist Relationship Specialty Start Date End Date Jagruti Cardenas MD [address] [place] [address] PCP - General 05/19/1994 documented as of this encounter
--- OUTSIDE RECORDS SUMMARY | 2025-08-28 20:30 | XMS_ITS | Encounter Summary ---
Author Organization [facility] Prior to 07/22/2024 Address [address] [place] [address] Care Team Providers Care Alterations Workroom Clerk Name Role Phone Jagruti Cardenas MD Primary Care Provider [phone] Encounter Details Date Type Department Care Team Description 06/24/[address] [facility] [address] [place] [address] Dave Leblanc MD [address] [place] [address] [phone] Social History Tobacco Use Types Packs/Day Years [...] suspected to have Coronavirus/COVID-19? No / Unsure 06/03/2022 9:30 AM EDT documented as of this encounter Plan of Treatment Not on file documented as of this encounter Visit Diagnoses Not on filedocumented in this encounter Care Teams Alterations Workroom Clerk Relationship Specialty Start Date End Date Jagruti Cardenas MD [address] [place] [address] PCP - General 05/19/1994 documented as of this encounter
--- OUTSIDE RECORDS SUMMARY | 2025-08-28 20:30 | XMS_ITS | Encounter Summary ---
Author Organization [employer] [facility] Prior to 07/22/2024 Address [address] [place] [address] Care Team Providers Care Marketing Recruiter Name Role Phone Jagruti Cardenas MD Primary Care Provider [phone] Encounter Details Date Type Department Care Team Description 07/09/2020 Sport Shoe Spike Assembler Report Medical Records [address] [place] [address] [facility] [address] [place] [address] Social History Tobacco Use Types Packs/Day Years [...] have Coronavirus / COVID-19? No / Unsure 06/28/2020 10:53 AM EDT documented as of this encounter Plan of Treatment Not on file documented as of this encounter Visit Diagnoses Not on filedocumented in this encounter Care Teams Marketing Recruiter Relationship Specialty Start Date End Date Jagruti Cardenas MD [address] [place], [place] [phone] PCP - General 05/19/1994 documented as of this encounter
--- OUTSIDE RECORDS SUMMARY | 2025-08-28 20:30 | XMS_ITS | Encounter Summary ---
Author Organization [facility] Prior to 07/22/2024 Address [address] [place] [address] Care Team Providers Care Coal Deliverer Name Role Phone Jagruti Cardenas MD Primary Care Provider [phone] Encounter Details Date Type Department Care Team Description 01/24/2022 Telephone Adult Medicine [address] [address] Ute Somers PA-C Social History Tobacco Use Types Packs/Day Years [...] suspected to have Coronavirus/COVID-19? No / Unsure 01/23/2022 2:19 PM EDT documented as of this encounter Miscellaneous Notes * Telephone Encounter - Susie Leiva M.A. - 01/24/2022 12:51 PM EDT Request faxed to both offices. * Telephone Encounter - Ute Somers PA-C - 01/24/2022 8:30 AM EDT Please obtain most recent notes from Dr. Hughes and ophthalmology Please obtain most recent notes from Dr. Moore in vascular surgery. Thank you Ute Somers PA-C documented in this encounter Plan of Treatment Not on file documented as of this encounter Visit Diagnoses Not on filedocumented in this encounter Care Teams Coal Deliverer Relationship Specialty Start Date End Date Jagruti Cardenas MD [address] [place] [address] PCP - General 05/19/1994 documented as of this encounter
--- OUTSIDE RECORDS SUMMARY | 2025-08-28 20:30 | XMS_ITS | Encounter Summary ---
Author Organization [employer] [facility] Prior to 07/22/2024 Address [address] [place] [address] Care Team Providers Care Field Collector Name Role Phone Jagruti Cardenas MD Primary Care Provider [phone] Encounter Details Date Type Department Care Team Description 02/15/2023 [facility] Medical Records [address] [place] [address] Esequiel Santizo PA-C Social History Tobacco Use Types Packs/Day [...] on filedocumented in this encounter Care Teams Field Collector Relationship Specialty Start Date End Date Jagruti Cardenas MD [address] [place] [address] PCP - General 05/19/1994 documented as of this encounter
--- OUTSIDE RECORDS SUMMARY | 2025-08-28 20:30 | XMS_ITS | Encounter Summary ---
Author Organization [employer] [facility] Prior to 07/22/2024 Address [address] [place] [address] Care Team Providers Care Die Set Up Worker Name Role Phone Jagruti Cardenas MD Primary Care Provider [phone] Encounter Details Date Type Department Care Team Description 12/02/2022 Refill Nephrology - [address] [phone] Kaveh Hamilton MD [address] [place] [address] [phone] Social History Tobacco Use Types Packs/Day Years [...] suspected to have Coronavirus/COVID-19? No / Unsure 11/20/2022 10:52 AM EST documented as of this encounter Plan of Treatment Not on file documented as of this encounter Visit Diagnoses Not on filedocumented in this encounter Care Teams Die Set Up Worker Relationship Specialty Start Date End Date Jagruti Cardenas MD [address] [place] [address] PCP - General 05/19/1994 documented as of this encounter
--- OUTSIDE RECORDS SUMMARY | 2025-08-28 20:30 | XMS_ITS | Encounter Summary ---
Author Organization [facility] Prior to 07/22/2024 Address [address] [place] [address] Care Team Providers Care Assessment Manager Name Role Phone Jagruti Cardenas MD Primary Care Provider [phone] Encounter Details Date Type Department Care Team Description 06/07/2020 Refill Nephrology - [address] [address] Dave Leblanc MD [address] [place] [address] [phone] Social History Tobacco Use Types Packs/Day Years [...] have Coronavirus / COVID-19? No / Unsure 05/31/2020 10:59 AM EDT documented as of this encounter Plan of Treatment Not on file documented as of this encounter Visit Diagnoses Not on filedocumented in this encounter Care Teams Assessment Manager Relationship Specialty Start Date End Date Jagruti Cardenas MD [address] [place] [address] [phone] PCP - General 05/19/1994 documented as of this encounter
--- OUTSIDE RECORDS SUMMARY | 2025-08-28 20:30 | XMS_ITS | Encounter Summary ---
Author Organization [employer] [facility] Prior to 07/22/2024 Address [address] [place] [address] Care Team Providers Care Corporate Quality Manager Name Role Phone Jagruti Cardenas MD Primary Care Provider [phone] Encounter Details Date Type Department Care Team Description 05/26/2023 Security System Installer Report Medical Records [address] [place] [address] Pepe Maharaj PA-C Social History Tobacco Use Types Packs/Day [...] on filedocumented in this encounter Care Teams Corporate Quality Manager Relationship Specialty Start Date End Date Jagruti Cardenas MD [address] [place] [address] PCP - General 05/19/1994 documented as of this encounter
--- OUTSIDE RECORDS SUMMARY | 2025-08-28 20:30 | XMS_ITS | Encounter Summary ---
Author Organization [facility] Prior to 07/22/2024 Address [address] [place] [address] Care Team Providers Care Tube Drawing Supervisor Name Role Phone Jagruti Cardenas MD Primary Care Provider [phone] Reason for Visit * Reason Comments E-prescribe Rx Request Encounter Details Date Type Department Care Team Description 03/26/2023 Refill Adult Medicine [facility] [address] [place] [address] Mike Kruse, NHAN [address] [place] [address] E-prescribe Rx Request Social History Tobacco Use [...] suspected to have Coronavirus/COVID-19? No / Unsure 03/25/2023 12:48 PM EDT documented as of this encounter Miscellaneous Notes * Telephone Encounter - Hollie Bassett M.A. - 03/26/2023 2:01 PM EDT Lab Results Component Value Date NA 143 11/06/2022 K 4.5 11/06/2022 CO2 26 11/06/2022 CL 109 11/06/2022 BUN 31 11/06/2022 CREAT 2.44 11/06/2022 GLU 130 05/06/2022 CA 9.8 11/06/2022 GFR 27 11/06/2022 Last appt 03/23/23 * Telephone Encounter - Jamia Chaves - 03/26/2023 11:59 AM EDT Patient would like script to be: E-PRESCRIBED/FAXED TO PHARMACY WHEN WAS THE PATIENT'S LAST APPOINTMENT IN ADULT MEDICINE? 03/23/2023 WHEN WAS THE LAST TIME THE PATIENT SAW THEIR PCP? Same as above Does patient have an upcoming appointment? Yes 04/27/2023 (THE MEDICATION REQUESTED IS ON THE MED LIST ABOVE) All of the medications requested were on the CURRENT MEDS list Did you check the Pharmacy information above?: YES Patient wants: 30 -day supply Is this a mail order prescription request ? NO If the refill is from a FAXED refill request what is the RX # listed on the fax? N/A Patients current insurance carrier is: [place] / [place] / Product Type: MED[place]ARE [id number] documented in this encounter Plan of Treatment Not on file documented as of this encounter Visit Diagnoses Not on filedocumented in this encounter Care Teams Tube Drawing Supervisor Relationship Specialty Start Date End Date Jagruti Cardenas MD [address] [place] [address] PCP - General 05/19/1994 documented as of this encounter
--- OUTSIDE RECORDS SUMMARY | 2025-08-28 20:30 | XMS_ITS | Encounter Summary ---
Author Organization [employer] [facility] Prior to 07/22/2024 Address [address] [place] [address] Care Team Providers Care Veneer Glue Jointer Feedback Name Role Phone Jagruti Cardenas MD Primary Care Provider [phone] Encounter Details Date Type Department Care Team Description 11/19/2022 Refill Nephrology - [address] [phone] Kaveh Hamilton MD [address] [place] [address] [phone] Social History Tobacco Use Types Packs/Day Years [...] on filedocumented in this encounter Care Teams Veneer Glue Jointer Feedback Relationship Specialty Start Date End Date Jagruti Cardenas MD [address] [place] [address] PCP - General 05/19/1994 documented as of this encounter
--- OUTSIDE RECORDS SUMMARY | 2025-08-28 20:30 | XMS_ITS | Encounter Summary ---
Author Organization [facility] Prior to 07/22/2024 Address [address] [place] [address] Care Team Providers Care Biztalk Administrator Name Role Phone Jagruti Cardenas MD Primary Care Provider [phone] Encounter Details Date Type Department Care Team Description 12/04/2019 Refill Adult Medicine [facility] [address] [place] [address] [phone] Jagruti Cardenas MD [address] [place] [address] 3572020 Social History Tobacco Use Types Packs/Day Years [...] Telephone Encounter - Hollie Bassett M.A. - 12/05/2019 8:59 AM EDT Lab Results Component Value Date NA 140 09/29/2019 K 4.2 09/29/2019 CO2 28 09/29/2019 CL 106 09/29/2019 BUN 26 09/29/2019 CREAT 2.22 09/29/2019 GLU 123 03/25/2019 CA 8.7 09/29/2019 GFR 29 09/29/2019 Last ov with Loic 10/03/19 Pt has not been prescribed Albuterol inhaler since 2014 Dx chronic asthmatic bronchitis documented in this encounter Plan of Treatment Not on file documented as of this encounter Visit Diagnoses Not on filedocumented in this encounter Care Teams Biztalk Administrator Relationship Specialty Start Date End Date Jagruti Cardenas MD [address] [place] [address] [phone] PCP - General 05/19/1994 documented as of this encounter
--- OUTSIDE RECORDS SUMMARY | 2025-08-28 20:30 | XMS_ITS | Encounter Summary ---
Author Organization [employer] [facility] Prior to 07/22/2024 Address [address] [place] [address] Care Team Providers Care Welding Equipment Repairer Name Role Phone Jagruti Cardenas MD Primary Care Provider [phone] Reason for Visit * Reason Comments E-prescribe Rx Request Encounter Details Date Type Department Care Team Description 08/22/2019 Refill Adult Medicine [address] [address] Monica Jasso NP E-prescribe Rx Request Social History Tobacco [...] encounter Miscellaneous Notes * Telephone Encounter - Charley Rivas M.A. - 08/22/2019 1:10 PM EST LaST OV 07/01/19 NEXT OV 10/03/19 Lab Results Component Value Date NA 140 03/25/2019 K 4.3 03/25/2019 CO2 25 03/25/2019 CL 110 03/25/2019 BUN 41 03/25/2019 CREAT 2.39 03/25/2019 GLU 123 03/25/2019 CA 9.4 03/25/2019 GFR 27 03/25/2019 * Telephone Encounter - uArelia Taylor - 08/22/2019 1:04 PM EST Patient would like script to be: E-PRESCRIBED/FAXED TO PHARMACY WHEN WAS THE PATIENT'S LAST APPOINTMENT IN ADULT MEDICINE? 07/01/19 WHEN WAS THE LAST TIME THE PATIENT SAW THEIR PCP? Does patient have an upcoming appointment? Yes 10/03/19 (THE MEDICATION REQUESTED IS ON THE MED [...] / [place] / Product Type: MEDICARE [id number] documented in this encounter Plan of Treatment Not on file documented as of this encounter Visit Diagnoses Not on filedocumented in this encounter Care Teams Welding Equipment Repairer Relationship Specialty Start Date End Date Jagruti Cardenas MD [address] [place] [address] PCP - General 05/19/1994 documented as of this encounter
--- OUTSIDE RECORDS SUMMARY | 2025-08-28 20:30 | XMS_ITS | Encounter Summary ---
Author Organization [facility] Prior to 07/22/2024 Address [address] [place] [address] Care Team Providers Care Claims Associate Name Role Phone Jagruti Cardenas MD Primary Care Provider [phone] Reason for Visit * Reason Onset Date Comments Call-returning From Provider 12/15/2018 Encounter Details Date Type Department Care Team Description 12/15/2018 Telephone Nephrology - [address] [address] Dave Leblanc MD [address] [place] [address] [phone] Call-returning From Provider Social History Tobacco Use Types Packs/Day [...] encounter Miscellaneous Notes * Telephone Encounter - Jolie Vaughn - 12/16/2018 3:43 PM EDT Patient is calling again today to check on status of his message. Pt is requesting a call back, please review and advise From the first initial call pt is requesting alternative pt paying $13.00 for script . Pt would like alternative would have $0 copay Alternative [employer] * Telephone Encounter - Jolie Vaughn - 12/15/2018 1:53 PM EDT Pt is returning a call from Dr. Leblanc, it was re: about yesterday telephone encounter. Pt states he received a call from Dr. Leblanc. Pt is requesting a call back- please review and advise documented in this encounter Plan of Treatment Not on file documented as of this encounter Visit Diagnoses Not on filedocumented in this encounter Care Teams Claims Associate Relationship Specialty Start Date End Date Jagruti Cardenas MD [address] [place] [address] PCP - General 05/19/1994 documented as of this encounter
--- OUTSIDE RECORDS SUMMARY | 2025-08-28 20:30 | XMS_ITS | Encounter Summary ---
Author Organization [facility] Prior to 07/22/2024 Address [address] [place] [address] Care Team Providers Care Program Director Group Work Name Role Phone Jagruti Cardenas MD Primary Care Provider [phone] Reason for Visit * Reason Onset Date Comments VNA Call 02/20/2023 Encounter Details Date Type Department Care Team Description 02/20/2023 Telephone Adult Medicine [facility] [address] [place] [address] [phone] Jagruti Cardenas MD [address] [place] [address] [phone] VNA Call Social History Tobacco Use Types [...] encounter Miscellaneous Notes * Telephone Encounter - Elidia Alcantara - 02/23/2023 11:57 AM EDT Called and left vm to return my call. * Telephone Encounter - Greg Short L.P.N. - 02/20/2023 10:19 AM EDT Spoke with VNA nurse He reports B/p 152/50 He had just taken his meds No symptoms I called spoke with the patient He states he is fine No symptoms outpatient scheduler Please book a [facility] follow up appt Thank you * Telephone Encounter - Jean Carlos Elizabeth - 02/20/2023 10:11 AM EDT VNA CALL Which VNA office is calling? [facility] Full name of caller: Cristobal The caller is A nurse Is the caller at the patients home?: NO Reason for call: Cristobal is calling to report that he took a blood pressure reading of 152/50 for the patient today. Does caller need an urgent call back? NO Was CONTACT Telephone # obtained above?: YES Fax #: documented in this encounter Plan of Treatment Not on file documented as of this encounter Visit Diagnoses Not on filedocumented in this encounter Care Teams Program Director Group Work Relationship Specialty Start Date End Date Jagruti Cardenas MD [address] [place] [address] PCP - General 05/19/1994 documented as of this encounter
--- OUTSIDE RECORDS SUMMARY | 2025-08-28 20:30 | XMS_ITS | Encounter Summary ---
Author Organization [facility] [employer] [facility] Prior to 07/22/2024 Address [address] [place] [address] Care Team Providers Care Boom Supervisor Name Role Phone Jagruti Cardenas MD Primary Care Provider [phone] Encounter Details Date Type Department Care Team Description 07/04/2020 Wiring Technician Report Medical Records [address] [place] [address] Rich Nobles PA-C [address] [place] [phone] Social History Tobacco Use Types Packs/Day Years [...] on filedocumented in this encounter Care Teams Boom Supervisor Relationship Specialty Start Date End Date Jagruti Cardenas MD [address] [place] [phone] PCP - General 05/19/1994 documented as of this encounter
--- OUTSIDE RECORDS SUMMARY | 2025-08-28 20:30 | XMS_ITS | Encounter Summary ---
Author Organization [facility] Prior to 07/22/2024 Address [address] [place] [address] Care Team Providers Care Asphalt Paver Name Role Phone Jagruti Cardenas MD Primary Care Provider [phone] Reason for Visit * Reason Onset Date Comments APPOINTMENT 02/19/2023 Encounter Details Date Type Department Care Team Description 02/19/2023 Telephone Adult Medicine [facility] [address] [place] [phone] Mike Kruse, PARodrigueC [address] [place] [phone] APPOINTMENT Social History Tobacco Use Types Packs/Day Years [...] Telephone Encounter - Elidia Alcantara - 02/23/2023 9:13 AM EDT Called and left vm to return my call. * Telephone Encounter - Hollie Maharaj M.A. - 02/19/2023 4:27 PM EDT Pt needs hospital f/u per Mike. Thanks documented in this encounter Plan of Treatment Not on file documented as of this encounter Visit Diagnoses Not on filedocumented in this encounter Care Teams Asphalt Paver Relationship Specialty Start Date End Date Jagruti Cardenas MD [address] [place] [phone] PCP - General 05/19/1994 documented as of this encounter
--- OUTSIDE RECORDS SUMMARY | 2025-08-28 20:30 | XMS_ITS | Encounter Summary ---
Author Organization [facility] Prior to 07/22/2024 Address [address] [place] [address] Care Team Providers Care Battery Starter Name Role Phone Jagruti Cardenas MD Primary Care Provider [phone] Encounter Details Date Type Department Care Team Description 12/02/2022 Refill Nephrology [facility] [address] [place] [address] Dave Leblanc MD [address] [place] [address] [phone] Social History Tobacco Use Types Packs/Day Years [...] on filedocumented in this encounter Care Teams Battery Starter Relationship Specialty Start Date End Date Jagruti Cardenas MD [address] [place] [phone] PCP - General 05/19/1994 documented as of this encounter
--- OUTSIDE RECORDS SUMMARY | 2025-08-28 20:30 | XMS_ITS | Encounter Summary ---
Author Organization [facility] [employer] [facility] Prior to 07/22/2024 Address [address] [place] [address] Care Team Providers Care Gathering Machine Setter Name Role Phone Jagruti Cardenas MD Primary Care Provider [phone] Encounter Details Date Type Department Care Team Description 05/11/2023 Orders Only Medical Records [address] [place] [phone] Abstract, Provider Social History Tobacco Use Types [...] suspected to have Coronavirus/COVID-19? No / Unsure 05/13/2023 2:53 PM EDT documented as of this encounter Plan of Treatment Not on file documented as of this encounter Procedures Procedure Name Priority Date/Time Associated Diagnosis Comments OUTSIDE IMAGING Routine 04/30/2023 documented in this encounter Results * OUTSIDE IMAGING (04/30/2023) Provider Abstract RADIOLOGY documented in this encounter Visit Diagnoses Not on filedocumented in this encounter Care Teams Gathering Machine Setter Relationship Specialty Start Date End Date Jagruti Cardenas MD [address] [place] [address] PCP - General 05/19/1994 documented as of this encounter
--- OUTSIDE RECORDS SUMMARY | 2025-08-28 20:30 | XMS_ITS | Encounter Summary ---
Author Organization [facility] [employer] [facility] Prior to 07/22/2024 Address [address] [place] [address] Care Team Providers Care Home Health Attendant Name Role Phone Jagruti Cardenas MD Primary Care Provider [phone] Encounter Details Date Type Department Care Team Description 07/14/2022 Railroad Police Report Medical Records [address] [place] [address] [facility] [address] [place] [address] Social History Tobacco Use Types Packs/Day Years [...] on filedocumented in this encounter Care Teams Home Health Attendant Relationship Specialty Start Date End Date Jagruti Cardenas MD [address] [place] [address] PCP - General 05/19/1994 documented as of this encounter
--- OUTSIDE RECORDS SUMMARY | 2025-08-28 20:30 | XMS_ITS | Encounter Summary ---
Author Organization [facility] Prior to 07/22/2024 Address [address] [place] [address] Care Team Providers Care Regulatory Process Manager Name Role Phone Jagruti Cardenas MD Primary Care Provider [phone] Reason for Visit * Reason Comments E-prescribe Rx Request Encounter Details Date Type Department Care Team Description 01/01/2023 Refill Adult Medicine [facility] [address] [place] [address] [phone] Jagruti Cardenas MD [address] [place] [address] [phone] E-prescribe Rx Request Social History Tobacco Use [...] suspected to have Coronavirus/COVID-19? No / Unsure 12/29/2022 10:20 AM EDT documented as of this encounter Miscellaneous Notes * Telephone Encounter - Hollie Bassett M.A. - 01/01/2023 3:12 PM EDT Lab Results Component Value Date NA 143 11/06/2022 K 4.5 11/06/2022 CO2 26 11/06/2022 CL 109 11/06/2022 BUN 31 11/06/2022 CREAT 2.44 11/06/2022 GLU 130 05/06/2022 CA 9.8 11/06/2022 GFR 27 11/06/2022 Pending appt with Kylie Bermudez UNDER TRIMMER 03/23/23 Last appt 12/22/22 documented in this encounter Plan of Treatment Not on file documented as of this encounter Visit Diagnoses Not on filedocumented in this encounter Care Teams Regulatory Process Manager Relationship Specialty Start Date End Date Jagruti Cardenas MD [address] [place] [phone] PCP - General 05/19/1994 documented as of this encounter
--- OUTSIDE RECORDS SUMMARY | 2025-08-28 20:30 | XMS_ITS | Encounter Summary ---
Author Organization [facility] [employer] [facility] Prior to 07/22/2024 Address [address] [place] [address] Care Team Providers Care Catalog Specialist Name Role Phone Jagruti Cardenas MD Primary Care Provider [phone] Encounter Details Date Type Department Care Team Description 02/17/2023 Pt. Non Urgent Medical Question Nephrology - [address] [address] Dave Leblanc MD [address] [place] [address] [phone] Social History Tobacco Use Types Packs/Day Years [...] on filedocumented in this encounter Care Teams Catalog Specialist Relationship Specialty Start Date End Date Jagruti Cardenas MD [address] [place] [address] [phone] PCP - General 05/19/1994 documented as of this encounter
--- OUTSIDE RECORDS SUMMARY | 2025-08-28 20:30 | XMS_ITS | Encounter Summary ---
Author Organization [facility] Prior to 07/22/2024 Address [address] [place] [address] Care Team Providers Care Lamination Builder Name Role Phone Jagruti Cardenas MD Primary Care Provider [phone] Reason for Visit * Reason Comments E-prescribe Rx Request Encounter Details Date Type Department Care Team Description 06/24/2019 Refill Adult Medicine [facility] [address] [place] [address] [phone] Jagruti Cardenas MD [address] [place] [phone] E-prescribe Rx Request Social History Tobacco Use [...] Telephone Encounter - Charley Rivas M.A. - 06/24/2019 1:29 PM EDT Last OV 03/31/19 Next OV 07/01/19 * Telephone Encounter - Nisha Dexter - 06/24/2019 10:25 AM EDT Patient would like script to be: E-PRESCRIBED/FAXED TO PHARMACY WHEN WAS THE PATIENT'S LAST APPOINTMENT IN ADULT MEDICINE? 03/31/19 WHEN WAS THE LAST TIME THE PATIENT SAW THEIR PCP? Same as above Does patient have an upcoming appointment? Yes 07/01/19 (THE MEDICATION REQUESTED IS ON THE MED [...] / Plan: [place] / Product Type: MEDICARE [id number] documented in this encounter Plan of Treatment Not on file documented as of this encounter Visit Diagnoses Not on filedocumented in this encounter Care Teams Lamination Builder Relationship Specialty Start Date End Date Jagruti Cardenas MD [address] [place] [phone] PCP - General 05/19/1994 documented as of this encounter
--- OUTSIDE RECORDS SUMMARY | 2025-08-28 20:30 | XMS_ITS | Encounter Summary ---
Author Organization [facility] [employer] [facility] Prior to 07/22/2024 Address [address] [place] [address] Care Team Providers Care Parts Facilitator Name Role Phone Jagruti Cardenas MD Primary Care Provider [phone] Encounter Details Date Type Department Care Team Description 02/03/2023 Refill Nephrology [facility] [address] [place] [address] Dave eLblanc MD [address] [place] [phone] Social History Tobacco Use Types Packs/Day Years [...] suspected to have Coronavirus/COVID-19? No / Unsure 01/13/2023 10:50 AM EDT documented as of this encounter Plan of Treatment Not on file documented as of this encounter Visit Diagnoses Diagnosis Chronic kidney disease, stage IV (severe) (HCC)- Primary Chronic kidney disease, Stage IV (severe) documented in this encounter Care Teams Parts Facilitator Relationship Specialty Start Date End Date Jagruti Cardenas MD [address] [place] [address] PCP - General 05/19/1994 documented as of this encounter
--- OUTSIDE RECORDS SUMMARY | 2025-08-28 20:30 | XMS_ITS | Encounter Summary ---
Author Organization [facility] [employer] [facility] Prior to 07/22/2024 Address [address] [place] [address] Care Team Providers Care Quick Sketch Artist Name Role Phone Jagruti Cardenas MD Primary Care Provider [phone] Encounter Details Date Type Department Care Team Description 04/10/2023 Hospital Medical Records [address] [place] [phone] Social History Tobacco Use Types Packs/Day Years [...] on filedocumented in this encounter Care Teams Quick Sketch Artist Relationship Specialty Start Date End Date Jagruti Cardenas MD [address] [place] [address] [phone] PCP - General 05/19/1994 documented as of this encounter
--- OUTSIDE RECORDS SUMMARY | 2025-08-28 20:30 | XMS_ITS | Encounter Summary ---
Author Organization [facility] [employer] [facility] Prior to 07/22/2024 Address [address] [place] [address] Care Team Providers Care Supervisor Customer Services Name Role Phone Jagruti Cardenas MD Primary Care Provider [phone] Encounter Details Date Type Department Care Team Description 06/23/2022 Refill Nephrology [facility] [address] [place] [address] Dave Leblanc MD [address] [place] [phone] Social History Tobacco Use Types Packs/Day Years [...] (severe) documented in this encounter Care Teams Supervisor Customer Services Relationship Specialty Start Date End Date Jagruti Cardenas MD [address] [place] [address] PCP - General 05/19/1994 documented as of this encounter
== END 2025-08-28 13:10 | disposition home or self-care (01) ==
LOC: HO.ENCR 12:24
PROVIDERS: PCP Internal Medicine; Visit Provider Dietitian, Registered
DX: R73.03 Prediabetes (principal)

== ENCOUNTER → 2025-08-28 12:24 | Outpatient (BNVA) | payer MEDICARE, SELFPAY | PROVIDERS: PCP Internal Medicine; Visit Provider Dietitian, Registered | DX: Z71.3 Dietary counseling and surveillance (principal); R73.03 Prediabetes | CPT/HCPCS: 97803 ==